=== PATIENT | female | born 1935 | race Caucasian/White ===

== ENCOUNTER 2017-03-01 14:02 | Emergency (ER) | payer MEDICARE, BC ==
[2017-03-01 14:18] LABS: URINE APPEARANCE CLOUDY; URINE BLOOD TRACE-I (NEGATIVE); URINE COLOR ORANGE; URINE KETONE NEGATIVE (NEGATIVE)
[2017-03-01] MEDS ORDERED: ONDANSETRON 4 MG ODT TABLET SL ONE (14:19)
--- NOTE | 2017-03-01 14:21 | Emergency Department Record ---
History of Present Illness - General Chief complaint: Female Urogenital Problem Stated complaint: POSS UTI Time Seen by Provider: 03/01/17 14:17 Source: Patient, Family - History of Present Illness Initial comments: Patient's daughter states that her mom has been having dysuria for nearly a week. She started on Azo and drinking cranberry juice, but is not better. Today she is feeling worse with suprapubic discomfort and nausea without vomiting. No fevers, chills or back pains. She states [employer] usually works for her UTI's in the past. MD Complaint: Dysuria - Related Data Home Medications Medication Instructions Recorded Confirmed Last Taken Benazepril HCl [Lotensin] 40 mg PO DAILY 03/01/17 03/01/17 1 Day Ago ~02/28/17 Clopidogrel Bisulfate [Clopidogrel] 75 mg PO DAILY 03/01/17 03/01/17 1 Day Ago ~02/28/17 Hydrochlorothiazide [Hctz 12.5MG] 12.5 mg PO DAILY 03/01/17 03/01/17 1 Day Ago ~02/28/17 Lovastatin 40 mg PO DAILY 03/01/17 03/01/17 1 Day Ago ~02/28/17 Metoprolol Tartrate [Lopressor] 25 mg PO Q12H 03/01/17 03/01/17 1 Day Ago ~02/28/17 Previous Rx's Medication Instructions Recorded Nitrofurantoin Monohyd/M-Cryst 100 mg PO BID #20 capsule 03/01/17 [Macrobid 100 mg Capsule] Allergies Allergy/AdvReac Type Severity Reaction Status Date / Time Penicillins Allergy HIVES Verified 03/01/17 14:18 Review of Systems Reviewed: No additional complaints except as noted below Constitutional: Reports: As per HPI. Denies: Chills, Fever, Malaise, Night sweats, Weakness, Weight change Eyes: Reports: As per HPI. Denies: Eye discharge, Eye pain, Photophobia, Vision change ENT: Reports: As per HPI. Denies: Congestion, Dental pain, Ear pain, Epistaxis , Hearing loss, Throat pain Respiratory: Reports: As per HPI. Denies: Cough, Dyspnea, Hemoptysis, Stridor, Wheezes Cardiovascular: Reports: As per HPI. Denies: Arrhythmia, Chest pain, Dyspnea on exertion, Edema, Murmurs, Orthopnea, Palpitations, Paroxysmal nocturnal dyspnea, Rheumatic Fever, Syncope Endocrine: Reports: As per HPI. Denies: Fatigue, Heat or cold intolerance, Polydipsia, Polyuria Gastrointestinal: Reports: As per HPI. Denies: Abdominal pain, Constipation, Diarrhea, Hematemesis, Hematochezia, Melena, Nausea, Vomiting Genitourinary: Reports: As per HPI. Denies: Abnormal menses, Discharge, Dyspareunia, Dysuria, Frequency, Hematuria, Incontinence, Retention, Urgency Musculoskeletal: Reports: As per HPI. Denies: Arthralgia, Back pain, Gout, Joint swelling, Myalgia, Neck pain Skin: Reports: As per HPI. Denies: Bruising, Change in color, Change in hair/ nails, Lesions, Pruritus, Rash Neurological: Reports: As per HPI. Denies: Abnormal gait, Confusion, Headache, Numbness, Paresthesias, Seizure, Tingling, Tremors, Vertigo, Weakness Psychiatric: Reports: As per HPI. Denies: Anxiety, Auditory hallucinations, Depression, Homicidal thoughts, Suicidal thoughts, Visual hallucinations Hematological/Lymphatic: Reports: As per HPI. Denies: Anemia, Blood Clots, Easy bleeding, Easy bruising, Swollen glands Physical Exam - General General Appearance: Alert, Oriented x3, Cooperative, No acute distress - Head Head exam: Normal inspection - Eye Eye exam: Normal appearance, PERRL Pupils: Normal accommodation - ENT ENT exam: Normal exam, Mucous membranes moist, Normal external ear exam, Normal orophraynx, TM's normal bilaterally Ear exam: Normal external inspection. negative: External canal tenderness Nasal Exam: Normal inspection. negative: Discharge, Sinus tenderness Mouth exam: Normal external inspection, Tongue normal Teeth exam: Normal inspection. negative: Dental caries Throat exam: Normal inspection. negative: Tonsillar erythema, Tonsillar exudate - Neck Neck exam: Normal inspection, Full ROM. negative: Tenderness - Respiratory Respiratory exam: Normal lung sounds bilaterally. negative: Respiratory distress - Cardiovascular Cardiovascular Exam: Regular rate, Normal rhythm, Normal heart sounds - GI/Abdominal GI/Abdominal exam: Soft, Normal bowel sounds, Other (mildly uncomfortable at suprapubic area on palpation). negative: Tenderness - Rectal Rectal exam: Deferred - exam: Deferred - Extremities Extremities exam: Normal inspection, Full ROM, Normal capillary refill. negative: Calf tenderness, Pedal edema, Tenderness - Back Back exam: Reports: Normal inspection, Full ROM. Denies: CVA tenderness (R), CVA tenderness (L), Muscle spasm, Rash noted, Tenderness - Neurological Neurological exam: Alert, Normal gait, Oriented X3, Reflexes normal - Psychiatric Psychiatric exam: Normal affect, Normal mood - Skin Skin exam: Dry, Intact, Normal color, Warm Medical Decision Making - Management Options MDM Management: No Additional Work-up Planned - Data Complexity MDM Data: Labs Ordered and/or Reviewed (UA:3-6 squamous, 3+ bacteria) Disposition Disposition: Discharge Clinical Impression: UTI (urinary tract infection) Qualifiers: Urinary tract infection type: acute cystitis Hematuria presence: without hematuria Qualified Code(s): N30.00 - Acute cystitis without hematuria Disposition: Home, Self-Care Condition: (1) Good Instructions: Urinary Tract Infection in Women (ED) Additional Instructions: Take antibiotics until gone as directed. Follow up with PCP for recheck 10 days. Tylenol or ibuprofen as directed as needed for pain, fevers. Prescriptions: Nitrofurantoin Monohyd/M-Cryst [Macrobid 100 mg Capsule] 100 mg PO BID #20 capsule Forms: Patient Portal Access
[2017-03-01 14:28] LABS: URINE AMORPHOUS SEDIMENT 1+; URINE BACTERIA 3+; URINE MUCUS LIGHT; URINE RBC 0 - 2 (NONE SEEN); URINE TRIPLE PHOSPHATE CRYSTAL 1+ /hpf; URINE WBC 21 - 35 (0-2/hpf)
== END 2017-03-01 15:03 | disposition home or self-care (01) ==
LOC: ER 14:02
DX: N30.00 Acute cystitis without hematuria (principal)
CPT/HCPCS: 81001; 99282

== ENCOUNTER 2017-09-11 17:19 | Emergency (ER) | payer MEDICARE, BC ==
--- NOTE | 2017-09-11 18:38 | Emergency Department Record ---
History of Present Illness - General Chief Complaint: Syncope Stated Complaint: NEAR SYNCOPY Time Seen by Provider: 09/11/17 18:32 Source: Patient Mode of Arrival: Wheelchair Limitations: No limitations Travel/Exposure to [facility] [place] Within 21 Days of Symptoms: No - History of Present Illness Initial Comments: 82 yo female presents to ED for evaluation of pre-syncope symptoms, reports that she feels as though she is "going to pass out" for the past several weeks intermittently. Patient denies dizziness or vertigo symptoms, denies chest pain or difficulty breathing, and denies recent illness. Patient reports that her PCP recently lowered her blood pressure medication as well due to her symptoms, but due to elevated BP, increased her medication back to her normal full dose yesterday. Patient denies focal weakness on examination. Patient denies any precipitating or improving factors. MD Complaint: Almost passed out Onset/Timin -: Week(s) Prodromal Symptoms: Other Injuries Sustained Associated with Event: None Current Symptoms: None Treatments Prior to Arrival: None - [place] Coma Scale Eye Response: (4) Open spontaneously Motor Response: (6) Obeys commands Verbal Response: (5) Oriented [place] Total: 15 - Symptoms of Stroke Symptoms of stroke: Dizziness - Related Data Previous Rx's Medication Instructions Recorded Nitrofurantoin [place] [Macrobid] 100 mg PO BID #13 capsule 09/11/17 Allergies Allergy/AdvReac Type Severity Reaction Status Date / Time Penicillins Allergy HIVES Verified 09/11/17 18:19 Travel Screening - Travel/Exposure Within Last 30 Days Have you traveled within the last 30 days?: No Review of Systems Constitutional: Denies: Chills, Fever, Malaise, Night sweats Eyes: Denies: Eye discharge, Eye pain ENT: Denies: Congestion, Ear pain, Epistaxis Respiratory: Denies: Cough, Dyspnea Cardiovascular: Denies: Chest pain, Dyspnea on exertion Endocrine: Denies: Fatigue, Heat or cold intolerance Gastrointestinal: Denies: Abdominal pain, Nausea, Vomiting Genitourinary: Denies: Incontinence, Retention Musculoskeletal: Denies: Arthralgia, Back pain Skin: Denies: Bruising, Change in color Neurological: Denies: Abnormal gait, Confusion, Headache, Numbness, Tingling, Tremors Psychiatric: Denies: Anxiety Hematological/Lymphatic: Denies: Anemia, Blood Clots Past Medical History - SOCIAL HISTORY Smoking Status: Never smoker Alcohol Use: None Drug Use: None - RESPIRATORY Hx Respiratory Disorders: No - CARDIOVASCULAR Hx Cardio Disorders: Yes Hx Hypertension: Yes Comment:: murmur - NEURO Hx Neuro Disorders: No - GI Hx GI Disorders: No - Hx Genitourinary Disorders: Yes Hx UTI: Yes - ENDOCRINE Hx Endocrine Disorders: No Hx Diabetes: No Hx Thyroid Disease: No - MUSCULOSKELETAL Hx Musculoskeletal Disorders: No - PSYCH Hx Psych Problems: No - HEMATOLOGY/ONCOLOGY Hx Hematology/Oncology Disorders: No Family Medical History Any Significant Family History?: No Physical Exam - General General Appearance: Alert, Oriented x3, Cooperative, No acute distress Limitations: No limitations - Head Head exam: Atraumatic, Normocephalic, Normal inspection Head exam detail: negative: Abrasion, Contusion, Conroy's sign, General tenderness, Hematoma, Laceration - Eye Eye exam: Normal appearance. negative: Conjunctival injection, Periorbital swelling, Periorbital tenderness, Scleral icterus - ENT Ear exam: negative: Auricular hematoma, Auricular trauma Nasal Exam: negative: Active bleeding, Discharge, Dried blood, Foreign body Mouth exam: negative: Drooling, Laceration, Muffled voice, Tongue elevation - Neck Neck exam: Normal inspection. negative: Meningismus, Tenderness - Respiratory Respiratory exam: Normal lung sounds bilaterally. negative: Respiratory distress, Rhonchi, Stridor, Wheezes - Cardiovascular Cardiovascular Exam: Regular rate, Normal rhythm, Normal heart sounds - GI/Abdominal GI/Abdominal exam: Soft. negative: Distended, Rebound, Rigid, Tenderness - Rectal Rectal exam: Deferred - exam: Deferred - Extremities Extremities exam: Normal inspection. negative: Calf tenderness, Pedal edema, Tenderness - Back Back exam: Denies: CVA tenderness (R), CVA tenderness (L) - Neurological Neurological exam: Alert, Normal gait, Oriented X3 - Psychiatric Psychiatric exam: Normal affect, Normal mood - Skin Skin exam: Normal color. negative: Abrasion Type of lesion: negative: abrasion Course Vital Signs 09/11/17 18:13 Temperature 98.5 F Pulse Rate 71 Respiratory 16 Rate Blood Pressure 203/95 Pulse Ox 97 - Reevaluation(s) Reevaluation #1: 09/11/17 18:37 EKG: NSR 70 LAD, RBBB T wave inversion III only. Reevaluation #2: 09/11/17 19:19 Labs reviewed and are grossly unremarkable for an acute process. UA pending. Reevaluation #3: 09/11/17 19:28 CXR: Prosthetic heart valve, nothing acute. Patient ambulated to the restroom with steady gait for UA sample. Medical Decision Making - Lab Data Result diagrams: 09/11/17 18:38 09/11/17 18:38 Disposition Disposition: Discharge Clinical Impression: Pre-syncope UTI (urinary tract infection) Qualifiers: Urinary tract infection type: acute cystitis Hematuria presence: without hematuria Qualified Code(s): N30.00 - Acute cystitis without hematuria Disposition: Home, Self-Care Condition: (2) Stable Instructions: Near Syncope (ED) Additional Instructions: Return to ED if your symptoms worsen or if you have any concerns. Macrobid as directed. Follow-up with Dr. Castle in 3-5 days as directed. Prescriptions: Nitrofurantoin [place] [Macrobid] 100 mg PO BID #13 capsule Forms: Patient Portal Access Time of Disposition: 19:38 Quality - Quality Measures Quality Measures: N/A - Blood Pressure Screening Does Patient Have Any of the Following: Active Dx of HTN Blood Pressure Classification: Hypertensive Reading Systolic Measurement: 203 Diastolic Measurement: 95 Screening for High Blood Pressure: Patient Exclusion, Hx of HTN [G9744]
[2017-09-11 18:53] LABS: BASO % 0.9 % (0-6); EOS % 4.2 % (0-6); GRAN % 55.3 % (47-80); HEMOGLOBIN 12.6 gm/dl (11.6-16.0); LYMPH % 32.6 % (16-45); MEAN CELL VOLUME 87.3 fl (81-97); MEAN CORPUSCULAR HEMOGLOBIN 27.5 pg (27-33); MEAN CORPUSCULAR HGB CONC 31.5 g/dl (32-36); MEAN PLATELET VOLUME 10.2 fl (7.4-10.4); PLATELET COUNT 202 K/uL (130-400); RED BLOOD COUNT 4.58 M/uL (3.80-5.40); RED CELL DISTRIBUTION WIDTH 14.9 % (11.5-14.5); WHITE BLOOD COUNT W/O DIFF 4.5 K/uL (4.2-12.2)
[2017-09-11 19:04] LABS: INR 0.96; PROTHROMBIN TIME (PATIENT) 10.4 SECONDS (9.5-12.1)
[2017-09-11 19:06] LABS: BLOOD UREA NITROGEN 26 mg/dL (8-23); CREATININE 0.9 mg/dL (0.5-0.9); EST GLOMERULAR FILTRATION RATE > 60 mL/min; TOTAL PROTEIN 7.4 g/dL (6.6-8.7)
[2017-09-11 19:08] LABS: GLUCOSE,RANDOM 105 mg/dL (74-109)
[2017-09-11 19:11] LABS: ALB/GLOB RATIO 1.5 (1.1-1.8); ALBUMIN 4.4 g/dL (4.0-5.0); ALKALINE PHOSPHATASE 81 U/L (35-104); ALT/SGPT 10 U/L (<33); AST/SGOT 15 U/L (10.0-35.0)
[2017-09-11 19:37] LABS: URINE APPEARANCE SL CLOUDY; URINE BILIRUBIN NEGATIVE (NEGATIVE); URINE BLOOD TRACE-I (NEGATIVE); URINE COLOR YELLOW; URINE GLUCOSE (UA) NEGATIVE (NEGATIVE); URINE KETONE NEGATIVE (NEGATIVE); URINE LEUKOCYTE ESTERASE MODERATE (NEGATIVE); URINE NITRITE POSITIVE (NEGATIVE); URINE PROTEIN NEGATIVE (NEGATIVE); URINE UROBILINOGEN 0.2 E.U./dL (0.20 - 1.00)
[2017-09-11] MEDS ORDERED: NITROFURANTOIN MONO 100 MG CAPSULE PO ONE (19:40)
[2017-09-11 19:45] LABS: URINE BACTERIA 3+; URINE RBC 0 - 2 (NONE SEEN); URINE WBC 21 - 35 (0-2/hpf)
--- NOTE | 2017-09-12 20:30 | RADIOLOGY REPORT ---
EXAM: CHEST 2 VIEWS HISTORY: EPISODE OF DIZZINESS, NEAR SYNCOPE. COMPARISON: None. TECHNIQUE: Two-view chest. FINDINGS: The lungs are clear. Prosthetic heart valve. Cardiac silhouette, diaphragm, and osseous structures are unremarkable. IMPRESSION: NO ACUTE INTRATHORACIC PROCESS. JOB NUMBER: [id number] MTDD
== END 2017-09-11 19:56 | disposition home or self-care (01) ==
LOC: ER 17:19
DX: R55 Syncope and collapse (principal); N30.00 Acute cystitis without hematuria; I10 Essential (primary) hypertension; Z95.2 Presence of prosthetic heart valve
CPT/HCPCS: 71020; 80053; 81001; 85025; 85610; 93005; 93010; 99284

== ENCOUNTER 2017-09-20 08:55 | Emergency (ER) | payer MEDICARE, BC ==
--- NOTE | 2017-09-20 09:27 | Emergency Department Record ---
History of Present Illness - General Chief complaint: Weakness Stated complaint: UTI, WEAK Time Seen by Provider: 09/20/17 09:04 Source: Patient Mode of Arrival: Ambulatory Limitations: No limitations - History of Present Illness Initial comments: 82 yo female presents to ED for continued symptoms described as "I feel as thought I am going to pass out". Patient denies actual syncope, denies chest, SHAKEEL, abdominal pain, or urinary symptoms however was treated for UTI 09/11/17 when evaluated for her symptoms at that time. Patient denies fevers, chills, cough, or headache symptoms. Patient reports that her episodes last 10-15 seconds, and have occurred 1-3 times daily. Patient denies any precipitating factors. 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 MD Complaint: Generalized weakness Onset/Timin -: Minutes(s) Location: Generalized Severity: Mild Consistency: Intermittent Improves with: None Worsens with: None Context: History of similar Associated Symptoms: Denies other symptoms - [place] Coma Scale Eye Response: (4) Open spontaneously Motor Response: (6) Obeys commands Verbal Response: (5) Oriented [place] Total: 15 - Related Data Allergies Allergy/AdvReac Type Severity Reaction Status Date / Time Penicillins Allergy HIVES Verified 09/20/17 09:17 Travel Screening - Travel/Exposure Within Last 30 Days Have you traveled within the last 30 days?: No - Travel/Exposure Within Last Year Have you traveled outside the [place] in the last year?: No - Additonal Travel Details Have you been exposed to anyone with a communicable illness?: No - Travel Symptoms Symptom Screening: None Review of Systems Constitutional: Reports: Weakness. Denies: Chills, Fever, Malaise, Night sweats Eyes: Denies: Eye discharge, Eye pain ENT: Denies: Congestion, Ear pain, Epistaxis Respiratory: Denies: Cough, Dyspnea Cardiovascular: Denies: Chest pain, Dyspnea on exertion Endocrine: Denies: Fatigue, Heat or cold intolerance Gastrointestinal: Denies: Abdominal pain, Nausea, Vomiting Musculoskeletal: Denies: Arthralgia, Back pain Skin: Denies: Bruising, Change in color Neurological: Denies: Abnormal gait, Confusion, Headache, Seizure Psychiatric: Denies: Anxiety Hematological/Lymphatic: Denies: Anemia, Blood Clots Past Medical History - SOCIAL HISTORY Smoking Status: Never smoker Alcohol Use: None Drug Use: None - RESPIRATORY Hx Respiratory Disorders: No - CARDIOVASCULAR Hx Cardio Disorders: Yes Hx Hypertension: Yes Comment:: murmur - NEURO Hx Neuro Disorders: No - GI Hx GI Disorders: No - Hx Genitourinary Disorders: Yes Hx UTI: Yes - ENDOCRINE Hx Endocrine Disorders: No Hx Diabetes: No Hx Thyroid Disease: No - MUSCULOSKELETAL Hx Musculoskeletal Disorders: No - PSYCH Hx Psych Problems: No - HEMATOLOGY/ONCOLOGY Hx Hematology/Oncology Disorders: No Family Medical History Any Significant Family History?: No Physical Exam - General General Appearance: Alert, Oriented x3, Cooperative, No acute distress Limitations: No limitations - Head Head exam: Atraumatic, Normocephalic, Normal inspection Head exam detail: negative: Abrasion, Contusion, Conroy's sign, General tenderness, Hematoma, Laceration - Eye Eye exam: Normal appearance. negative: Conjunctival injection, Periorbital swelling, Periorbital tenderness, Scleral icterus - ENT Ear exam: negative: Auricular hematoma, Auricular trauma Nasal Exam: negative: Active bleeding, Discharge, Dried blood, Foreign body Mouth exam: negative: Drooling, Laceration, Muffled voice, Tongue elevation - Neck Neck exam: Normal inspection. negative: Meningismus, Tenderness - Respiratory Respiratory exam: Normal lung sounds bilaterally. negative: Rales, Respiratory distress, Rhonchi, Stridor - Cardiovascular Cardiovascular Exam: Normal rhythm, Normal heart sounds, Bradycardia - GI/Abdominal GI/Abdominal exam: Soft. negative: Rebound, Rigid, Tenderness - Rectal Rectal exam: Deferred - exam: Deferred - Extremities Extremities exam: Normal inspection. negative: Pedal edema, Tenderness - Back Back exam: Denies: CVA tenderness (R), CVA tenderness (L) - Neurological Neurological exam: Alert, Normal gait, Oriented X3 - Psychiatric Psychiatric exam: Normal affect, Normal mood - Skin Skin exam: Normal color. negative: Abrasion Type of lesion: negative: abrasion Course Vital Signs 09/20/17 09:00 Temperature 97.8 F Pulse Rate 52 L Respiratory 16 Rate Blood Pressure 189/81 Pulse Ox 99 - Reevaluation(s) Reevaluation #1: 09/20/17 09:22 EKG: Sinus bradycardia 54 LAD, IVCD, RBBB No acute ST-T wave changes are present Unchanged 09/11/17 Reevaluation #2: 09/20/17 10:08 Labs reviewed and are grossly unremarkable for an acute process, UA pending. Patient intermittently dips into the upper 40's while on monitor. Will initiate transfer to [facility] for further evaluation. Reevaluation #3: 09/20/17 10:12 Case was discussed with Dr. Lantigua, will accept transfer for further evaluation. Medical Decision Making - Lab Data Result diagrams: 09/20/17 09:31 09/20/17 09:31 Disposition Disposition: Transfer Clinical Impression: Pre-syncope, Bradycardia Disposition: Acute Care Hospital Transfer Transfer To: [facility] Reason For Transfer: Cardiac evaluation Accepting Physician: Rhina Time Discussed w/Accepting Physician: 10:12 Condition: (2) Stable Forms: Patient Portal Access Time of Disposition: 10:12 Quality - Quality Measures Quality Measures: N/A - Blood Pressure Screening Does Patient Have Any of the Following: Active Dx of HTN Blood Pressure Classification: Pre-Hypertensive BP Reading Systolic Measurement: 189 Diastolic Measurement: 81 Screening for High Blood Pressure: Patient Exclusion, Hx of HTN [G9744]
[2017-09-20 09:41] LABS: BASO % 0.8 % (0-6); EOS % 3.9 % (0-6); GRAN % 60.8 % (47-80); HEMATOCRIT 40.9 % (35.0-47.0); HEMOGLOBIN 13.1 gm/dl (11.6-16.0); LYMPH % 26.7 % (16-45); MEAN CELL VOLUME 86.3 fl (81-97); MEAN CORPUSCULAR HEMOGLOBIN 27.6 pg (27-33); MEAN PLATELET VOLUME 10.2 fl (7.4-10.4); MONO % 7.8 % (0-9); PLATELET COUNT 212 K/uL (130-400); RED BLOOD COUNT 4.74 M/uL (3.80-5.40); RED CELL DISTRIBUTION WIDTH 14.9 % (11.5-14.5); WHITE BLOOD COUNT W/O DIFF 5.2 K/uL (4.2-12.2)
[2017-09-20 09:52] LABS: INR 0.98; PROTHROMBIN TIME (PATIENT) 10.6 SECONDS (9.5-12.1)
[2017-09-20 09:54] LABS: BLOOD UREA NITROGEN 30 mg/dL (8-23); EST GLOMERULAR FILTRATION RATE 56 mL/min
[2017-09-20 09:55] LABS: TOTAL PROTEIN 7.7 g/dL (6.6-8.7)
[2017-09-20 09:57] LABS: GLUCOSE,RANDOM 102 mg/dL (74-109)
[2017-09-20 09:59] LABS: ALB/GLOB RATIO 1.7 (1.1-1.8); ALBUMIN 4.8 g/dL (4.0-5.0); ALKALINE PHOSPHATASE 81 U/L (35-104); ALT/SGPT 10 U/L (<33); AST/SGOT 16 U/L (10.0-35.0)
[2017-09-20 11:02] LABS: URINE APPEARANCE CLEAR; URINE BILIRUBIN NEGATIVE (NEGATIVE); URINE BLOOD NEGATIVE (NEGATIVE); URINE COLOR YELLOW; URINE GLUCOSE (UA) NEGATIVE (NEGATIVE); URINE KETONE NEGATIVE (NEGATIVE); URINE LEUKOCYTE ESTERASE NEGATIVE (NEGATIVE); URINE NITRITE NEGATIVE (NEGATIVE); URINE PROTEIN NEGATIVE (NEGATIVE); URINE UROBILINOGEN 0.2 E.U./dL (0.20 - 1.00)
== END 2017-09-20 11:26 | disposition short-term general hospital (02) ==
LOC: ER 08:55
DX: R55 Syncope and collapse (principal); R00.1 Bradycardia, unspecified; R53.1 Weakness; I10 Essential (primary) hypertension; Z95.2 Presence of prosthetic heart valve; Z79.01 Long term (current) use of anticoagulants
CPT/HCPCS: 80053; 81003; 84484; 85025; 85610; 93005; 93010; 99285

== ENCOUNTER 2017-10-14 20:43 | Observation (INO) | payer MEDICARE, BC ==
[2017-10-14 21:08] LABS: BASO % 0.5 % (0-6); EOS % 2.6 % (0-6); GRAN % 56.1 % (47-80); HEMATOCRIT 40.1 % (35.0-47.0); HEMOGLOBIN 12.5 gm/dl (11.6-16.0); LYMPH % 32.1 % (16-45); MEAN CELL VOLUME 86.4 fl (81-97); MEAN CORPUSCULAR HEMOGLOBIN 26.9 pg (27-33); MEAN CORPUSCULAR HGB CONC 31.2 g/dl (32-36); MEAN PLATELET VOLUME 9.9 fl (7.4-10.4); MONO % 8.7 % (0-9); PLATELET COUNT 202 K/uL (130-400); RED BLOOD COUNT 4.64 M/uL (3.80-5.40); RED CELL DISTRIBUTION WIDTH 15.1 % (11.5-14.5); WHITE BLOOD COUNT W/O DIFF 6.1 K/uL (4.2-12.2)
[2017-10-14] MEDS ORDERED: ASPIRIN 81 MG CHEWABLE TABLET PO ONE (21:15)
[2017-10-14 21:25] LABS: ALBUMIN 4.6 g/dL (4.0-5.0); ALKALINE PHOSPHATASE 78 U/L (35-104); ALT/SGPT 10 U/L (<33); AST/SGOT 15 U/L (10.0-35.0); BLOOD UREA NITROGEN 27 mg/dL (8-23); CREATININE 0.9 mg/dL (0.5-0.9); EST GLOMERULAR FILTRATION RATE > 60 mL/min; GLUCOSE,RANDOM 108 mg/dL (74-109)
[2017-10-14 21:26] LABS: ALB/GLOB RATIO 1.6 (1.1-1.8); TOTAL PROTEIN 7.5 g/dL (6.6-8.7)
[2017-10-14 21:28] LABS: CKMB 2.7 ng/mL (<3.77)
[2017-10-14] MEDS: NITROGLYCERIN 0.4MG SL TABLET #25 BTL SL ONE ×3 (21:33→21:54)
--- NOTE | 2017-10-14 23:06 | Emergency Department Record ---
History of Present Illness - General Chief Complaint: Chest Pain Stated Complaint: HIGH BLOOD PRESSURE,CHEST PAIN Time Seen by Provider: 10/14/17 21:01 Source: Patient, Family Mode of Arrival: Ambulatory Limitations: No limitations - History of Present Illness Initial Comments: pt had a spell today and a few days ago where she feels out of it, has discomfort in her chest and feels like she is going to pass out. she also was sweaty MD Complaint: Chest pain Onset/Timin -: Hour(s) Onset: During exertion Pain Location: Left chest Quality: Aching, Dull Consistency: Constant Improves With: Nothing Worsens With: Nothing Context: Recent surgery Anginal Symptoms: Diaphoresis, Nausea Treatments Prior to Arrival: None - Related Data On Oral Contraceptives: No Home Medications Medication Instructions Recorded Confirmed Last Taken Ezetimibe [Zetia] 10 mg PO DAILY 10/14/17 10/14/17 10/13/17 Magnesium 200 mg PO DAILY 10/14/17 10/14/17 Unknown Allergies Allergy/AdvReac Type Severity Reaction Status Date / Time Penicillins Allergy HIVES Verified 09/20/17 09:17 Travel Screening - Travel/Exposure Within Last 30 Days Have you traveled within the last 30 days?: No - Travel Symptoms Symptom Screening: None Review of Systems Reviewed: No additional complaints except as noted below Constitutional: Reports: As per HPI. Denies: Chills, Fever, Malaise, Night sweats, Weakness, Weight change Eyes: Reports: As per HPI. Denies: Eye discharge, Eye pain, Photophobia, Vision change ENT: Reports: As per HPI. Denies: Congestion, Dental pain, Ear pain, Epistaxis , Hearing loss, Throat pain Respiratory: Reports: As per HPI. Denies: Cough, Dyspnea, Hemoptysis, Stridor, Wheezes Cardiovascular: Reports: As per HPI, Chest pain. Denies: Arrhythmia, Dyspnea on exertion, Edema, Murmurs, Orthopnea, Palpitations, Paroxysmal nocturnal dyspnea, Rheumatic Fever, Syncope Endocrine: Reports: As per HPI. Denies: Fatigue, Heat or cold intolerance, Polydipsia, Polyuria Gastrointestinal: Reports: As per HPI. Denies: Abdominal pain, Constipation, Diarrhea, Hematemesis, Hematochezia, Melena, Nausea, Vomiting Genitourinary: Reports: As per HPI. Denies: Abnormal menses, Discharge, Dyspareunia, Dysuria, Frequency, Hematuria, Incontinence, Retention, Urgency Musculoskeletal: Reports: As per HPI. Denies: Arthralgia, Back pain, Gout, Joint swelling, Myalgia, Neck pain Skin: Reports: As per HPI. Denies: Bruising, Change in color, Change in hair/ nails, Lesions, Pruritus, Rash Neurological: Reports: As per HPI. Denies: Abnormal gait, Confusion, Headache, Numbness, Paresthesias, Seizure, Tingling, Tremors, Vertigo, Weakness Psychiatric: Reports: As per HPI. Denies: Anxiety, Auditory hallucinations, Depression, Homicidal thoughts, Suicidal thoughts, Visual hallucinations Hematological/Lymphatic: Reports: As per HPI. Denies: Anemia, Blood Clots, Easy bleeding, Easy bruising, Swollen glands Past Medical History - SOCIAL HISTORY Smoking Status: Never smoker Alcohol Use: None Drug Use: None - RESPIRATORY Hx Respiratory Disorders: No - CARDIOVASCULAR Hx Cardio Disorders: Yes Hx Hypertension: Yes Hx Pacemaker/Defib: Yes Comment:: murmur - NEURO Hx Neuro Disorders: No - GI Hx GI Disorders: No - Hx Genitourinary Disorders: Yes Hx UTI: Yes - ENDOCRINE Hx Endocrine Disorders: No Hx Diabetes: No Hx Thyroid Disease: No - MUSCULOSKELETAL Hx Musculoskeletal Disorders: No - PSYCH Hx Psych Problems: No - HEMATOLOGY/ONCOLOGY Hx Hematology/Oncology Disorders: No Family Medical History Any Significant Family History?: No Family Hx Comment (NOT TO BE USED IN PLACE OF ITEMS BELOW): DENIES Course Vital Signs 10/14/17 10/14/17 10/14/17 20:49 21:30 21:40 Pulse Rate 69 Pulse Rate [ 66 69 Clinical Dietitian ] Respiratory 20 16 18 Rate Blood Pressure 183/93 Blood Pressure 179/101 152/81 [Right Arm] Pulse Ox 96 98 10/14/17 10/14/17 10/14/17 21:45 21:50 21:56 Pulse Rate Pulse Rate [ 62 70 Clinical Dietitian ] Respiratory 16 16 Rate Blood Pressure Blood Pressure 143/75 155/80 132/69 [Right Arm] Pulse Ox 97 95 10/14/17 22:23 Pulse Rate Pulse Rate [ 65 Clinical Dietitian ] Respiratory 20 Rate Blood Pressure Blood Pressure 133/64 [Right Arm] Pulse Ox 98 - Reevaluation(s) Reevaluation #1: 10/15/17 00:36 chest pain resolved w 3 ntg. pt states she had a heart cath but we were unable to locate it at [facility] or [facility] Medical Decision Making - Lab Data Result diagrams: 10/14/17 20:50 10/14/17 20:50 Lab Results 10/14/17 10/14/17 10/14/17 Range/Units 20:50 20:50 20:50 WBC 6.1 (4.2-12.2) K/uL RBC 4.64 (3.80-5.40) M/uL Hgb 12.5 (11.6-16.0) gm/dl Hct 40.1 (35.0-47.0) % MCV 86.4 (81-97) fl MCH 26.9 L (27-33) pg MCHC 31.2 L (32-36) g/dl RDW 15.1 H (11.5-14.5) % Plt Count 202 (130-400) K/uL MPV 9.9 (7.4-10.4) fl Gran % 56.1 (47-80) % Lymphocytes % 32.1 (16-45) % Monocytes % 8.7 (0-9) % Eosinophils % 2.6 (0-6) % Basophils % 0.5 (0-6) % D-Dimer 1.41 H (0-0.59) mg/L FEU Sodium 140 (136-145) mmol/L Potassium 3.9 (3.4-4.5) mmol/L Chloride 99 (98-107) mmol/L Carbon Dioxide 28.0 (22-29) mmol/L Anion Gap 13.0 (7-16) BUN 27 H (8-23) mg/dL Creatinine 0.9 (0.5-0.9) mg/dL Estimated GFR > 60 mL/min Random Glucose 108 (74-109) mg/dL Calcium 9.6 (8.8-10.2) mg/dL Total Bilirubin 0.20 (0.2-1.0) mg/dL AST 15 (10.0-35.0) U/L ALT 10 (<33) U/L Alkaline Phosphatase 78 (35-104) U/L CK-MB (CK-2) 2.7 (<3.77) ng/mL Troponin T < 0.010 (0-0.010) ng/mL NT-Pro-B Natriuret Pep (<450) pg/mL Total Protein 7.5 (6.6-8.7) g/dL Albumin 4.6 (4.0-5.0) g/dL Globulin 2.9 (1.4-4.8) gm/dL Albumin/Globulin Ratio 1.6 (1.1-1.8) 10/14/17 Range/Units 20:50 WBC (4.2-12.2) K/uL RBC (3.80-5.40) M/uL Hgb (11.6-16.0) gm/dl Hct (35.0-47.0) % MCV (81-97) fl MCH (27-33) pg MCHC (32-36) g/dl RDW (11.5-14.5) % Plt Count (130-400) K/uL MPV (7.4-10.4) fl Gran % (47-80) % Lymphocytes % (16-45) % Monocytes % (0-9) % Eosinophils % (0-6) % Basophils % (0-6) % D-Dimer (0-0.59) mg/L FEU Sodium (136-145) mmol/L Potassium (3.4-4.5) mmol/L Chloride (98-107) mmol/L Carbon Dioxide (22-29) mmol/L Anion Gap (7-16) BUN (8-23) mg/dL Creatinine (0.5-0.9) mg/dL Estimated GFR mL/min Random Glucose (74-109) mg/dL Calcium (8.8-10.2) mg/dL Total Bilirubin (0.2-1.0) mg/dL AST (10.0-35.0) U/L ALT (<33) U/L Alkaline Phosphatase (35-104) U/L CK-MB (CK-2) (<3.77) ng/mL Troponin T (0-0.010) ng/mL NT-Pro-B Natriuret Pep 284.90 (<450) pg/mL Total Protein (6.6-8.7) g/dL Albumin (4.0-5.0) g/dL Globulin (1.4-4.8) gm/dL Albumin/Globulin Ratio (1.1-1.8) Disposition Disposition: Admit Clinical Impression: Chest pain Qualifiers: Chest pain type: unspecified Qualified Code(s): R07.9 - Chest pain, unspecified Disposition: Still a Patient at [facility] Decision to Admit: Admit from ER Decision to Admit Date: 10/15/17 Decision to Admit Time: 00:40 Forms: Patient Portal Access Quality - Quality Measures Quality Measures: N/A - Blood Pressure Screening Does Patient Have Any of the Following: Active Dx of HTN Blood Pressure Classification: Hypertensive Reading Systolic Measurement: 183 Diastolic Measurement: 93 Screening for High Blood Pressure: Patient Exclusion, Hx of HTN [G9744]
[2017-10-15] MEDS ORDERED: METOPROLOL TART 25 MG TABLET PO SCH ×2 (01:06→09:00)
[2017-10-15] MEDS ORDERED: NITROGLYCERIN 0.4MG SL TABLET #25 BTL SL PRN (01:06)
[2017-10-15] MEDS: ACETAMINOPHEN 500 MG TABLET PO PRN ×2 (01:37→06:35)
[2017-10-15 07:14] LABS: CKMB 1.7 ng/mL (<3.77)
--- NOTE | 2017-10-15 08:09 | History & Physical ---
History of Present Illness - Date of Service Date of Service for History & Physical: 10/15/17 - History of Present Illness Admitting Diagnosis: chest pain Travel Screening - Travel/Exposure Within Last 30 Days Have you traveled within the last 30 days?: No - Travel/Exposure Within Last Year Have you traveled outside the [place] in the last year?: No - Additonal Travel Details Have you been exposed to anyone with a communicable illness?: No - Travel Symptoms Symptom Screening: None Review of Systems Constitutional: Reports: As per HPI. Denies: Chills, Fever, Malaise, Night sweats, Weakness, Weight change Eyes: Reports: As per HPI. Denies: Eye discharge, Eye pain, Photophobia, Vision change ENT: Reports: As per HPI. Denies: Congestion, Dental pain, Ear pain, Epistaxis , Hearing loss, Throat pain Respiratory: Reports: As per HPI. Denies: Cough, Dyspnea, Hemoptysis, Stridor, Wheezes Cardiovascular: Reports: As per HPI, Chest pain. Denies: Arrhythmia, Dyspnea on exertion, Edema, Murmurs, Orthopnea, Palpitations, Paroxysmal nocturnal dyspnea, Rheumatic Fever, Syncope Endocrine: Reports: As per HPI. Denies: Fatigue, Heat or cold intolerance, Polydipsia, Polyuria Gastrointestinal: Reports: As per HPI. Denies: Abdominal pain, Constipation, Diarrhea, Hematemesis, Hematochezia, Melena, Nausea, Vomiting Genitourinary: Reports: As per HPI. Denies: Abnormal menses, Discharge, Dyspareunia, Dysuria, Frequency, Hematuria, Incontinence, Retention, Urgency Musculoskeletal: Reports: As per HPI. Denies: Arthralgia, Back pain, Gout, Joint swelling, Myalgia, Neck pain Skin: Reports: As per HPI. Denies: Bruising, Change in color, Change in hair/ nails, Lesions, Pruritus, Rash Neurological: Reports: As per HPI. Denies: Abnormal gait, Confusion, Headache, Numbness, Paresthesias, Seizure, Tingling, Tremors, Vertigo, Weakness Psychiatric: Reports: As per HPI. Denies: Anxiety, Auditory hallucinations, Depression, Homicidal thoughts, Suicidal thoughts, Visual hallucinations Hematological/Lymphatic: Reports: As per HPI. Denies: Anemia, Blood Clots, Easy bleeding, Easy bruising, Swollen glands Past Medical History - SOCIAL HISTORY Smoking Status: Never smoker Alcohol Use: None Drug Use: None - RESPIRATORY Hx Respiratory Disorders: No - CARDIOVASCULAR Hx Cardio Disorders: Yes Hx Hypertension: Yes Hx Pacemaker/Defib: Yes Comment:: murmur - NEURO Hx Neuro Disorders: No - GI Hx GI Disorders: No - Hx Genitourinary Disorders: Yes Hx UTI: Yes - ENDOCRINE Hx Endocrine Disorders: No Hx Diabetes: No Hx Thyroid Disease: No - MUSCULOSKELETAL Hx Musculoskeletal Disorders: No - PSYCH Hx Psych Problems: No - HEMATOLOGY/ONCOLOGY Hx Hematology/Oncology Disorders: No Family Medical History Any Significant Family History?: No Family Hx Comment (NOT TO BE USED IN PLACE OF ITEMS BELOW): DENIES H&P Meds/Allergies - Allergies Allergies: Allergies Allergy/AdvReac Type Severity Reaction Status Date / Time Penicillins Allergy HIVES Verified 09/20/17 09:17 - Home Medications Home Medications Medication Instructions Recorded Confirmed Last Taken Ezetimibe [Zetia] 10 mg PO DAILY 10/14/17 10/14/17 10/13/17 Magnesium 200 mg PO DAILY 10/14/17 10/14/17 Unknown - Active Medications Active Medications: Current Medications Acetaminophen (Tylenol 500mg Tab) 1,000 mg PO Q6H PRN PRN Reason: PAIN/TEMP Last Admin: 10/15/17 06:35 Dose: 1,000 mg Aspirin (Ecotrin (Ec)) 325 mg PO DAILY [facility] Benazepril HCl (Lotensin) 40 mg PO DAILY [facility] Clopidogrel Bisulfate (Plavix) 75 mg PO DAILY [facility] Ezetimibe (Zetia) 10 mg PO DAILY [facility] Magnesium Oxide (Mag Ox) 200 mg PO DAILY [facility] Metoprolol Tartrate (Lopressor) 25 mg PO Q12H [facility] Nitroglycerin (Nitrostat 0.4mg) 0.4 mg SL Q5MIN PRN PRN Reason: CHEST PAIN Simvastatin (Zocor) 20 mg PO DAILY [facility] Physical Exam - Vital Signs Vital Signs: Vital Signs - Last 24 Hrs Temp Pulse Resp BP Pulse Ox 10/15/17 06:41 95 10/15/17 06:00 59 L 16 147/74 96 10/15/17 03:00 61 16 133/84 97 10/15/17 02:24 97.1 F L 103 H 18 152/98 98 10/15/17 01:00 97 F L 62 16 155/72 98 - General Limitations: No limitations Results - Labs Result Diagrams: 10/14/17 20:50 10/14/17 20:50 Labs Last 24 Hours: Laboratory Results - last 24 hr 10/15/17 10/15/17 06:00 06:15 CK-MB (CK-2) Cancelled 1.7 Troponin T < 0.010
[2017-10-15] MEDS ORDERED: AL HYDROX/MAG HYDROX 30ML UD PO ONE (08:32)
[2017-10-15] MEDS ORDERED: PANTOPRAZOLE SODIUM 40 MG TABLET PO SCH (09:00)
--- NOTE | 2017-10-15 09:11 | CT ANGIOGRAM REPORT ---
EXAM: CTA OF THE CHEST FOR PE WITH POST PROCESSING HISTORY: CHEST PAIN. TECHNIQUE: CTA of the chest was performed following intravenous administration of 90 ml of Omnipaque 350 as the IV contrast. Post processing on an independent workstation was performed with multiple 3D MIP series obtained. A preliminary report was provided by [facility]. Comparison: No prior chest CT. Comparison is made with the two view chest x- ray dated 09/11/17. FINDINGS: No definite PE identified. There is a prosthetic aortic valve. Some coronary artery calcification is present. No thoracic aortic aneurysm or dissection is seen. No pleural or pericardial effusion evident. No hilar or mediastinal adenopathy is seen. No pneumothorax evident. Minor dependent atelectasis in the posterior aspect of both lower lobes. There is some minor linear fibrosis or discoid atelectasis in the lingula as well. IMPRESSION: 1. NO DEFINITE PE IDENTIFIED. 2. PROSTHETIC AORTIC HEART VALVE. SOME MILD CORONARY ARTERY CALCIFICATION. 3. MINOR LINEAR FIBROSIS OR DISCOID ATELECTASIS LEFT BASE. JOB NUMBER: [id number] MTDD
[2017-10-15] MEDS ORDERED: LOVASTATIN 40 MG PO SCH (10:00)
[2017-10-15] MEDS ORDERED: ASPIRIN 325 MG TAB ENTERIC-COATED PO SCH (10:00)
[2017-10-15] MEDS ORDERED: CLOPIDOGREL 75MG TABLET PO SCH (10:00)
[2017-10-15] MEDS ORDERED: SIMVASTATIN 20 MG TABLET PO SCH (10:00)
[2017-10-15] MEDS ORDERED: MAGNESIUM OXIDE 400 MG TABLET PO SCH (10:00)
[2017-10-15] MEDS ORDERED: EZETIMIBE 10 MG TABLET PO SCH (10:00)
[2017-10-15] MEDS ORDERED: BENAZEPRIL 20 MG TABLET PO SCH (10:00)
--- NOTE | 2017-10-15 12:38 | Discharge Note ---
VTE H&P Assessment - Risk for VTE Risk for VTE: No Risk Level: Very Low Risk Assessment Date: 10/15/17 Risk Assessment Time: 12:38 VTE Orders Placed or Will Be Placed: No VTE Reason for No Prophylaxis: Not Indicated Discharge Medications - Discharge Medications Prescriptions: Omeprazole 20 mg PO DAILY #30 cap. Home Medications: Ambulatory Orders Benazepril HCl [Lotensin] 40 mg PO DAILY 03/01/17 [Last Taken 10/14/17] Clopidogrel Bisulfate [Clopidogrel] 75 mg PO DAILY 03/01/17 [Last Taken 10/14/17 ] Lovastatin 40 mg PO DAILY 03/01/17 [Last Taken 10/14/17] Metoprolol Tartrate [Lopressor] 25 mg PO Q12H 03/01/17 [Last Taken 10/14/17] Ezetimibe [Zetia] 10 mg PO DAILY 10/14/17 [Last Taken 10/13/17] Magnesium 200 mg PO DAILY 10/14/17 [Last Taken Unknown] Omeprazole 20 mg PO DAILY #30 cap. 10/15/17 [Last Taken Unknown] Discharge Note - Date Date of Discharge Note: 10/15/17 Disposition: Home, Self-Care Condition: (1) Good Additional Instructions: follow up with Dr. Castle on thursday use maalox one tablespoon after meals and bedtime Forms: Patient Portal Access
--- NOTE | 2017-10-15 13:01 | Discharge Note ---
VTE H&P Assessment - Risk for VTE Risk for VTE: No Risk Level: Very Low Risk Assessment Date: 10/15/17 Risk Assessment Time: 12:38 VTE Orders Placed or Will Be Placed: No VTE Reason for No Prophylaxis: Not Indicated Discharge Medications - Discharge Medications Prescriptions: Omeprazole 20 mg PO DAILY #30 cap. Pantoprazole Sodium [Protonix] 40 mg PO DAILY #30 tablet. Home Medications: Ambulatory Orders Benazepril HCl [Lotensin] 40 mg PO DAILY 03/01/17 [Last Taken 10/14/17] Clopidogrel Bisulfate [Clopidogrel] 75 mg PO DAILY 03/01/17 [Last Taken 10/14/17 ] Lovastatin 40 mg PO DAILY 03/01/17 [Last Taken 10/14/17] Metoprolol Tartrate [Lopressor] 25 mg PO Q12H 03/01/17 [Last Taken 10/14/17] Ezetimibe [Zetia] 10 mg PO DAILY 10/14/17 [Last Taken 10/13/17] Magnesium 200 mg PO DAILY 10/14/17 [Last Taken Unknown] Omeprazole 20 mg PO DAILY #30 cap. 10/15/17 [Last Taken Unknown] Pantoprazole Sodium [Protonix] 40 mg PO DAILY #30 tablet. 10/15/17 [Last Taken Unknown] Discharge Note - Date Date of Discharge Note: 10/15/17 Disposition: Home, Self-Care Condition: (1) Good Additional Instructions: follow up with Dr. Castle on thursday use maalox one tablespoon after meals and bedtime Prescriptions: Omeprazole 20 mg PO DAILY #30 cap. Referrals: Bishop Castle, D.O. [Primary Care Provider] - Forms: Patient Portal Access
--- NOTE | 2017-10-15 13:50 | History and Physical Report ---
DATE: 10/15/2017 CHIEF COMPLAINT: Chest pain lasting for a few seconds. She said it was a warm feeling, a hot feeling. She said she was a little sweaty. She has been concerned about her pacemaker that was placed on 09/22/2017. She came to the emergency department and was evaluated by Dr. Britton, admitted to the hospital for serial cardiac enzymes and serial EKGs. Pacemaker showed paced rhythm from the atrial lead. The patient also states her chest pain is in the rib cage area just around the area where the pacemaker has been placed and slightly below that area, which is healing up very nicely at this time. She had her pacemaker interrogated about a week ago which was very good and everything is working fine. She had an elevated D-dimer and a CTA was done in the emergency department which was negative for a PE. She has a prosthetic aortic heart valve which was placed because of aortic stenosis about 1 year ago. Her interventional radiology technologist is [facility]. Dr. Alvares is who she is going to be going to see. PAST MEDICAL HISTORY: Arrhythmia with a pacemaker placed 09/22/2017. She has a history of aortic stenosis with a prosthetic aortic heart valve. She has had some problems with urinary tract infection in the past. No diabetes or thyroid disease. PAST SURGICAL HISTORY: She had aortic valve replacement in September 2016, left knee total replacement, left ankle surgery, pacemaker placed 09/22/2017. MEDICATIONS: 1. Zetia 10 mg a day. 2. Metoprolol tartrate 25 mg b.i.d. 3. Magnesium 200 mg daily. 4. Lovastatin 40 mg daily. 5. Plavix 75 mg daily. 6. Lotensin 40 mg daily. ALLERGIES: PENICILLIN. FAMILY/PSYCHOSOCIAL HISTORY: Unremarkable. No smoking, never smoked. No alcohol or drug use. REVIEW OF SYSTEMS: HEENT: No upper respiratory infection symptoms, cough, cold, or congestion. Cardiovascular: See Chief Complaint. She does have arrhythmias and a pacemaker but it is working very well at this time. The chest pain is sharp in nature, reproducible on palpation. No edema in the legs. Respiratory: No cough, cold, or congestion. Gastrointestinal: No nausea, vomiting, diarrhea, black stools, or bloody stools. Genitourinary: No dysuria, hematuria, frequency, or burning on urination. Musculoskeletal: She denies any problems moving her arms or legs. Neurological: No CVA, paralysis, or paresthesias. Gynecological: No abnormal lumps in her breasts or abnormal vaginal bleeding. Endocrine: No diabetes or thyroid disease. Integument: No rash, ulcers, change in moles, or yellow skin. PHYSICAL EXAMINATION: VITALS: Height 5 feet 2 inches, weight 262 pounds. Temperature 98.0, pulse 64, blood pressure 150/85, respiratory rate 60, pulse ox 95% on room air. HEENT: Pupils are equal, round, and reactive to light and accommodation. Extraocular muscles are intact. Throat is clear. Nose is clear. Tympanic membranes are mcclelland. NECK: Supple. No jugular venous distention. No hepatojugular reflux. No carotid bruits. Thyroid is smooth. CARDIOVASCULAR: Regular rate and rhythm without murmurs, clicks, rubs, or gallops. RESPIRATORY: Clear to auscultation and percussion. ABDOMEN: Soft, nontender. No hepatosplenomegaly, no masses, no tenderness. Bowel sounds are active. No bruits. EXTREMITIES: No pitting edema. No cyanosis, no clubbing. Full range of motion. Peripheral pulses are good. BREASTS: Exam deferred. GYNECOLOGICAL: Exam deferred. RECTAL: Exam deferred. MUSCULOSKELETAL: There is pain on palpation of the rib cage under the pacemaker and it is reproducible. NEUROLOGIC: Cranial nerves II-XII intact. No gross defects. Sensation normal, strength normal. Deep tendon reflexes equal bilaterally with Babinski negative. MENTAL STATUS: Alert and oriented x3. IMPRESSION: 1. Anterior chest wall pain. 2. Gastroesophageal reflux disease. 3. Status post pacemaker insertion 09/22/2017. 4. Status post aortic valve replacement in September 2016. Her interventional radiology technologist is Dr. Alvares. PLAN: We will see how she does this morning and possibly discharge today. Follow up with her interventional radiology technologist as an outpatient. TIGIST
--- NOTE | 2017-10-15 14:00 | Discharge Summary ---
DATE: 10/15/2017 DISCHARGE DIAGNOSES: 1. Chest wall pain. 2. Status post pacemaker insertion 09/22/2017. 3. Status post aortic valve replacement in September 2016. 4. GERD. ATTENDING PHYSICIAN: Bishop Castle DO REASON FOR HOSPITALIZATION: The patient had a sensation in her chest that was a hot feeling. It was painful at times, a fleeting sort of secondary kind of pain, especially with palpation of the ribs below the pacemaker insertion site. The patient was seen in the emergency department by Dr. Britton, admitted to the hospital for serial cardiac enzymes. SIGNIFICANT FINDINGS: Cardiac enzymes x2 were negative. EKG x2 showing paced rhythm. It is paced from the atrial point. THERAPY PROVIDED: Observation and cardiac monitoring. Maalox and Protonix. HOSPITAL COURSE: The patient is improved and doing well. Wants to go home. CONDITION ON DISCHARGE: Stable. DISCHARGE INSTRUCTIONS: Follow up with Dr. Castle. The prescription sent home with the patient is Protonix 40 mg once a day, not the omeprazole. She does not feel the omeprazole will help her and could have some side effect to her aortic valve. Continue her home medications of Zetia 10 mg daily, Lopressor 25 mg b.i.d., magnesium 200 mg daily, lovastatin 40 mg daily, Plavix 75 mg daily, Lotensin 40 mg daily. MTDD
== END 2017-10-15 14:10 | disposition home or self-care (01) ==
LOC: ER 20:43 → MEDSURG 10-15 00:59
PROVIDERS: ADMIT Internal Medicine; ATTEND Emergency Medicine
DX: R07.89 Other chest pain (principal); K21.9 Gastro-esophageal reflux disease without esophagitis; Z95.0 Presence of cardiac pacemaker; Z95.2 Presence of prosthetic heart valve
CPT/HCPCS: 71275; 80053; 82553; 83880; 84484; 85025; 85379; 93005; 93010; 99285

== ENCOUNTER 2018-11-18 09:04 | Emergency (ER) | payer MEDICARE, BC ==
[2018-11-18] MEDS ORDERED: ONDANSETRON HCL IV 4 MG/2 ML VIAL IVP ONE (09:16)
[2018-11-18] MEDS ORDERED: MORPHINE SULFATE 10 MG/ML VIAL IVP ONE ×2 (09:16→10:47)
[2018-11-18 09:19] LABS: HEMATOCRIT 43.5 % (35.0-47.0); HEMOGLOBIN 13.7 gm/dl (11.6-16.0); MEAN CELL VOLUME 92.6 fl (81-97); MEAN CORPUSCULAR HEMOGLOBIN 29.1 pg (27-33); MEAN CORPUSCULAR HGB CONC 31.5 g/dl (32-36); MEAN PLATELET VOLUME 9.8 fl (7.4-10.4); PLATELET COUNT 212 K/uL (130-400); RED CELL DISTRIBUTION WIDTH 13.9 % (11.5-14.5); WHITE BLOOD COUNT W/O DIFF 10.5 K/uL (4.2-12.2)
--- NOTE | 2018-11-18 09:19 | Emergency Department Record ---
History of Present Illness - General Chief Complaint: Trauma Stated Complaint: FALL Time Seen by Provider: 11/18/18 09:09 Source: Patient Mode of Arrival: EMS Limitations: No limitations - History of Present Illness Initial Comments: The patient is here due to tripping and falling at home 2-3 hours ago and landing on her L side. She may have bumped her head on her bed but mainly has had L arm and L hip pain since the fall. She denies any LUGO, neck pain, visual changes, nausea, Cp, SOB, AP or back pain. The patient does take Plavix but did not take it today. Complaint: Fall, Injury Onset/Timin -: Hour(s) - Related Data Previous Rx's Medication Instructions Recorded Omeprazole 20 mg PO DAILY #30 cap. 10/15/17 Pantoprazole Sodium [Protonix] 40 mg PO DAILY #30 tablet. 10/15/17 Allergies Allergy/AdvReac Type Severity Reaction Status Date / Time Penicillins Allergy HIVES Verified 09/20/17 09:17 Review of Systems Constitutional: Denies: Chills, Fever Eyes: Denies: Eye discharge ENT: Denies: Congestion Respiratory: Denies: Cough, Dyspnea Cardiovascular: Denies: Arrhythmia Endocrine: Denies: Fatigue Gastrointestinal: Denies: Abdominal pain, Nausea Genitourinary: Denies: Dysuria Musculoskeletal: Denies: Arthralgia Past Medical History - SOCIAL HISTORY Smoking Status: Never smoker Drug Use: None - RESPIRATORY Hx Respiratory Disorders: No - CARDIOVASCULAR Hx Cardio Disorders: Yes Hx Hypertension: Yes Hx Pacemaker/Defib: Yes Comment:: murmur - NEURO Hx Neuro Disorders: No - GI Hx GI Disorders: No - Hx Genitourinary Disorders: Yes Hx UTI: Yes - ENDOCRINE Hx Endocrine Disorders: No Hx Diabetes: No Hx Thyroid Disease: No - MUSCULOSKELETAL Hx Musculoskeletal Disorders: No - PSYCH Hx Psych Problems: No - HEMATOLOGY/ONCOLOGY Hx Hematology/Oncology Disorders: No Family Medical History Family Hx Comment (NOT TO BE USED IN PLACE OF ITEMS BELOW): DENIES Physical Exam - General General Appearance: Alert, Oriented x3, Cooperative, No acute distress - Head Head exam: Atraumatic, Normocephalic, Normal inspection - Eye Eye exam: Normal appearance, PERRL, EOMI - Neck Neck exam: Normal inspection, Full ROM. negative: Tenderness (There is no Cspine tenderness.) - Respiratory Respiratory exam: Normal lung sounds bilaterally. negative: Chest wall tenderness, Respiratory distress - Cardiovascular Cardiovascular Exam: Regular rate, Normal rhythm, Normal heart sounds - GI/Abdominal GI/Abdominal exam: Soft, Normal bowel sounds. negative: Tenderness - Extremities Extremities exam: Full ROM, Normal capillary refill, Tenderness (There is distal L humerus tenderness and L hip tenderness. The L leg is shortened and rotated.). negative: Normal inspection - Back Back exam: Reports: Normal inspection. Denies: Paraspinal tenderness, Vertebral tenderness - Neurological Neurological exam: Alert. negative: Motor sensory deficit Course - Reevaluation(s) Reevaluation #1: The patient is doing very well at this time. She denies any head or neck pain and her L elbow and hip are feeling better. She also denies any CP, SOB, or HSAKEEL. I did discuss the case with the Trauma Team at [facility] and Dr. Chen does accept the patient in the ER to ER transfer. She is not requesting any more xrays and will order a head and neck CT at [facility]. 11/18/18 10:24 Medical Decision Making - Lab Data Result diagrams: 11/18/18 08:50 11/18/18 08:50 Disposition Disposition: Transfer Clinical Impression: Hip fracture Qualifiers: Encounter type: initial encounter Fracture type: closed Laterality: left Qualified Code(s): S72.002A - Fracture of unspecified part of neck of left femur , initial encounter for closed fracture Disposition: Acute Care Hospital Transfer Transfer To: [facility] Reason For Transfer: Trauma Accepting Physician: April Time Discussed w/Accepting Physician: 10:26 Condition: (2) Stable Forms: Patient Portal Access Time of Disposition: 10:26 Quality - Quality Measures Quality Measures: N/A - Blood Pressure Screening View Details: Yes Does Patient Have Any of the Following: Active Dx of HTN Blood Pressure Classification: Hypertensive Reading Systolic Measurement: 196 Diastolic Measurement: 100 Screening for High Blood Pressure: Patient Exclusion, Hx of HTN [G9744]
[2018-11-18 09:25] LABS: PLATELET ESTIMATE NORMAL (NORMAL)
[2018-11-18 09:29] LABS: PARTIAL THROMBOPLASTIN TIME 28.8 SECONDS (24.5-39.1); PROTHROMBIN TIME (PATIENT) 10.4 SECONDS (9.5-12.1)
[2018-11-18 09:31] LABS: BLOOD UREA NITROGEN 18 mg/dL (8-23); CREATININE 0.8 mg/dL (0.5-0.9); EST GLOMERULAR FILTRATION RATE > 60 mL/min
[2018-11-18 09:34] LABS: GLUCOSE,RANDOM 134 mg/dL (74-109)
--- NOTE | 2018-11-18 11:19 | Emergency Department Record ---
History of Present Illness - General Chief Complaint: Trauma Stated Complaint: FALL Time Seen by Provider: 11/18/18 09:09 Source: Patient Mode of Arrival: EMS Limitations: No limitations - History of Present Illness Onset/Timin -: Hour(s) Loss of Consciousness: No Consistency: Constant - Related Data Previous Rx's Medication Instructions Recorded Omeprazole 20 mg PO DAILY #30 cap. 10/15/17 Pantoprazole Sodium [Protonix] 40 mg PO DAILY #30 tablet. 10/15/17 Allergies Allergy/AdvReac Type Severity Reaction Status Date / Time Penicillins Allergy HIVES Verified 09/20/17 09:17 Travel Screening - Travel/Exposure Within Last 30 Days Have you traveled within the last 30 days?: No - Travel/Exposure Within Last Year Have you traveled outside the [place] in the last year?: No - Additonal Travel Details Have you been exposed to anyone with a communicable illness?: No Review of Systems Constitutional: Denies: Chills, Fever Eyes: Denies: Eye discharge ENT: Denies: Congestion Respiratory: Denies: Cough, Dyspnea Cardiovascular: Denies: Arrhythmia Endocrine: Denies: Fatigue Gastrointestinal: Denies: Abdominal pain, Nausea Genitourinary: Denies: Dysuria Musculoskeletal: Denies: Arthralgia Past Medical History - SOCIAL HISTORY Smoking Status: Never smoker Drug Use: None - RESPIRATORY Hx Respiratory Disorders: No - CARDIOVASCULAR Hx Cardio Disorders: Yes Hx Hypertension: Yes Hx Pacemaker/Defib: Yes Comment:: murmur - NEURO Hx Neuro Disorders: No - GI Hx GI Disorders: No - Hx Genitourinary Disorders: Yes Hx UTI: Yes - ENDOCRINE Hx Endocrine Disorders: No Hx Diabetes: No Hx Thyroid Disease: No - MUSCULOSKELETAL Hx Musculoskeletal Disorders: No - PSYCH Hx Psych Problems: No - HEMATOLOGY/ONCOLOGY Hx Hematology/Oncology Disorders: No Family Medical History Family Hx Comment (NOT TO BE USED IN PLACE OF ITEMS BELOW): DENIES Physical Exam - General Limitations: No limitations Course Vital Signs 11/18/18 09:10 Temperature 97.7 F Pulse Rate 86 Respiratory 18 Rate Blood Pressure 196/100 Pulse Ox 98 Medical Decision Making - Data Complexity MDM Data: X-Ray Ordered and/or Reviewed - Lab Data Result diagrams: 11/18/18 08:50 11/18/18 08:50 Lab Results 11/18/18 11/18/18 11/18/18 Range/Units 08:50 08:50 08:50 WBC 10.5 (4.2-12.2) K/uL RBC 4.70 (3.80-5.40) M/uL Hgb 13.7 (11.6-16.0) gm/dl Hct 43.5 (35.0-47.0) % MCV 92.6 (81-97) fl MCH 29.1 (27-33) pg MCHC 31.5 L (32-36) g/dl RDW 13.9 (11.5-14.5) % Plt Count 212 (130-400) K/uL MPV 9.8 (7.4-10.4) fl Neutrophils % 87.0 H (47-80) % Eosinophils % Not Reportable Basophils % Not Reportable Lymphocytes 7.0 L (16-45) % Monocytes 6.0 (0-9) % Platelet Estimate Normal (NORMAL) RBC Morphology Normal PT 10.4 (9.5-12.1) SECONDS INR 1.0 APTT 28.8 (24.5-39.1) SECONDS Sodium 142 (136-145) mmol/L Potassium 3.6 (3.4-4.5) mmol/L Chloride 100 (98-107) mmol/L Carbon Dioxide 27.0 (22-29) mmol/L Anion Gap 15.0 (7-16) BUN 18 (8-23) mg/dL Creatinine 0.8 (0.5-0.9) mg/dL Estimated GFR > 60 mL/min Random Glucose 134 H (74-109) mg/dL Calcium 9.2 (8.8-10.2) mg/dL - Radiology Data Radiology results: Report reviewed (L Hip: Femoral neck fx with displacement. L Elbow: Medial condyle displaced fx. L knee: Neg for acute changes.) Disposition Clinical Impression: Hip fracture Qualifiers: Encounter type: initial encounter Fracture type: closed Laterality: left Qualified Code(s): S72.002A - Fracture of unspecified part of neck of left femur , initial encounter for closed fracture Disposition: Acute Care Hospital Transfer Condition: (2) Stable Forms: Patient Portal Access Quality - Quality Measures Quality Measures: N/A - Blood Pressure Screening View Details: Yes Does Patient Have Any of the Following: Active Dx of HTN Blood Pressure Classification: Hypertensive Reading Systolic Measurement: 196 Diastolic Measurement: 100 Screening for High Blood Pressure: Patient Exclusion, Hx of HTN [G9749]
--- NOTE | 2018-11-21 09:54 | RADIOLOGY REPORT ---
EXAM: HIP,UNILAT, 2-3 VIEW LEFT HISTORY: PAIN POST FALL. TECHNIQUE: An AP view of the pelvis is obtained as well as a crosstable lateral view of the left hip. COMPARISON: None. ENCOUNTER: Initial. FINDINGS: There is diffuse osteopenia. There is evidence of an acute fracture of the proximal to mid left femoral neck with mild to moderate apex anterior angulation of the fracture fragments. Additionally, there is proximal and lateral displacement of the distal fracture fragment by approximately 2 cm. No other fracture is seen nor is there dislocation. There are mild degenerative changes of the hips and sacroiliac joints. IMPRESSION: 1. DISPLACED AND ANGULATED FRACTURE OF THE PROXIMAL TO MID LEFT FEMORAL NECK. 2. MILD DEGENERATIVE CHANGES OF THE HIPS. [facility]BER: [id number] [facility]
--- NOTE | 2018-11-21 09:57 | RADIOLOGY REPORT ---
EXAM: KNEE, LEFT 1 or 2 VIEWS HISTORY: PAIN POST FALL. TECHNIQUE: AP and crosstable lateral views of the left knee are obtained. COMPARISON: None. ENCOUNTER: Initial. FINDINGS: There is diffuse osteopenia limiting evaluation. Total left knee arthroplasty changes are identified with the metallic prosthetic components appearing well-seated. No definite fracture nor dislocation. The patella appears somewhat high-riding likely relating to straight-legged positioning. No focal soft tissue abnormality. IMPRESSION: 1. DIFFUSE OSTEOPENIA. STATUS POST TOTAL LEFT KNEE ARTHROPLASTY. 2. NO FRACTURE OR DISLOCATION. JOB NUMBER: [id number] [facility]
--- NOTE | 2018-11-21 10:02 | RADIOLOGY REPORT ---
EXAM: HUMERUS, LEFT HISTORY: PAIN POST FALL. TECHNIQUE: AP and lateral views of the left humerus are obtained. COMPARISON: CT angiogram of the chest dated 10/14/2017. Two-view chest radiographic examination dated 09/11/2017. ENCOUNTER: Initial. FINDINGS: Diffuse osteopenia limits evaluation. There is an oblique, mildly displaced intra-articular fracture of the distal humerus extending from the medial supracondylar region distally to the medial margin of the capitellum. The smaller fracture fragment is displaced medially and anteriorly. No other definite fracture identified though a nondisplaced transverse fracture through the capitellum would be difficult to exclude. The left shoulder to the extent visualized is maintained. A dual-lead transvenous cardiac stimulator is in place. Prosthetic aortic valve redemonstrated. The heart is enlarged. Mild linear scarring versus atelectasis in the lateral left lung base. IMPRESSION: DISPLACED, POSSIBLY COMMINUTED FRACTURE OF THE DISTAL HUMERUS, DISCUSSED ABOVE. [facility]: [id number] [facility]
== END 2018-11-18 10:54 | disposition short-term general hospital (02) ==
LOC: ER 09:04
DX: S72.002A Fracture of unspecified part of neck of left femur, initial encounter for closed fracture (principal); S42.442A Displaced fracture (avulsion) of medial epicondyle of left humerus, initial encounter for closed fracture; M25.562 Pain in left knee; W01.10XA Fall on same level from slipping, tripping and stumbling with subsequent striking against unspecified object, initial encounter; Y92.002 Bathroom of unspecified non-institutional (private) residence as the place of occurrence of the external cause; I10 Essential (primary) hypertension; Z79.01 Long term (current) use of anticoagulants
CPT/HCPCS: 29105; 99285 ×2; 96376; 96374; 96375; 85730; 85610; 80048; 85027; 73060; 73560; 73502; J2405; J2270

== ENCOUNTER 2018-11-23 12:12 | Inpatient (IN) | payer MEDICARE, BC ==
[2018-11-23] MEDS: ACETAMINOPHEN 325 MG TAB PO PRN (17:08)
[2018-11-23] MEDS: EZETIMIBE 10 MG TABLET PO SCH (21:04)
[2018-11-23] MEDS: METOPROLOL TART 25 MG TABLET PO SCH (21:04)
[2018-11-23] MEDS: APIXABAN 2.5MG TABLET PO SCH (21:05)
[2018-11-23] MEDS: TRAZODONE 50 MG TABLET PO SCH (21:05)
[2018-11-24] MEDS: PANTOPRAZOLE SODIUM 40 MG TABLET PO SCH (06:20)
--- NOTE | 2018-11-24 08:08 | History & Physical ---
History of Present Illness - Date Date of Service for History & Physical: 11/24/18 - History of Present Illness Admitting Diagnosis: mult. rehab services due to fall from standing History of Present Illness: patient fell and found in her home transported to [facility] ED with diagnosis of left hip fracture and left humerus fracture and than transported to [facility] where the left hip was fixed on oct and the left upper arm repaired on nov 21, [address] Cali and Dr. Trevino. Patient was transferred to [facility] swing bed for rehab. H pacemaker and aortic valve repair CAD. Patient needs 30 days of DVT prophylaxis with eliquis 2.5 mg BID. Patient had a left supracondylar fracture and left hip fracture. General - Cognitive Patterns Speech: Normal Thought Process: Intact Thought Content: Normal Orientation: Person, Time, Responds to Name, Recognizes Familiar Faces or Places - Communication Preferred Language?: [place] [employer] Reception[employer] Required: No Level of Education: High School Preferred Method of Learning: Seeing, Doing Comprehension Ability: Impairment Able to Read: Yes Able to Write: Yes Select best description of speech pattern: Clear Speech Ability to express ideas and wants: Understood Understanding verbal content: Understands - Psychosocial Well-Being Usual Living Arrangement: Alone - Physical Functioning Activity Level: Up with assist x3 Turning: With total assist ROM Ability: Limited/Compromised Ambulation Ability: Dependent Bed Mobility: Dependent Transfer Ability: Dependent Bathing Ability: Dependent Personal Hygiene: Dependent Dressing Ability: Dependent Eating (Feeding) Ability: Needs Assist Toileting Ability: Dependent Administer Own Medication: Needs Assist - Continence Bowel Pattern: Normal for Patient Bladder Pattern: Normal - Dental Status Unable to examine: No Broken or loosely fitting full or partial dentures: No No natural teeth or tooth fragment(s) (edentulous): No Abnormal mouth tissue (ulcers, masses, oral lesions, etc.): No Obvious or likely cavity or broken natural teeth: No Inflamed or bleeding gums or loose natural teeth: No Mouth/facial pain, discomfort or difficulty chewing: No - Nutrition Screening Poor oral intake > 1 week: No Unplanned weight loss in specified time frame: No Nutrition Support via tube feedings or parenteral nutrition: No Pressure Ulcer: No Significantly underweight define as BMI <18.5 kg/m2: No Albumin <2.5mg/dL: No Persistent nausea/vomiting/diarrhea >3 days: No Difficulty chewing/swallowing/mouth sores: No Admitting Diagnosis: No Nutrition Risk Score: Low Risk Review of Systems Reviewed: No additional complaints except as noted below Constitutional: Reports: As per HPI. Denies: Chills, Fever, Malaise, Night sweats, Weakness, Weight change Eyes: Reports: As per HPI. Denies: Eye discharge, Eye pain, Photophobia, Vision change ENT: Reports: As per HPI. Denies: Congestion, Dental pain, Ear pain, Epistaxis , Hearing loss, Throat pain Respiratory: Reports: As per HPI. Denies: Cough, Dyspnea, Hemoptysis, Stridor, Wheezes Cardiovascular: Reports: As per HPI. Denies: Arrhythmia, Chest pain, Dyspnea on exertion, Edema, Murmurs, Orthopnea, Palpitations, Paroxysmal nocturnal dyspnea, Rheumatic Fever, Syncope Endocrine: Reports: As per HPI. Denies: Fatigue, Heat or cold intolerance, Polydipsia, Polyuria Gastrointestinal: Reports: As per HPI. Denies: Abdominal pain, Constipation, Diarrhea, Hematemesis, Hematochezia, Melena, Nausea, Vomiting Genitourinary: Reports: As per HPI. Denies: Abnormal menses, Discharge, Dyspareunia, Dysuria, Frequency, Hematuria, Incontinence, Retention, Urgency Musculoskeletal: Reports: As per HPI. Denies: Arthralgia, Back pain, Gout, Joint swelling, Myalgia, Neck pain Skin: Reports: As per HPI, Other (swelling left arm post surgery). Denies: Bruising, Change in color, Change in hair/nails, Lesions, Pruritus, Rash Neurological: Reports: As per HPI. Denies: Abnormal gait, Confusion, Headache, Numbness, Paresthesias, Seizure, Tingling, Tremors, Vertigo, Weakness Psychiatric: Reports: As per HPI. Denies: Anxiety, Auditory hallucinations, Depression, Homicidal thoughts, Suicidal thoughts, Visual hallucinations Hematological/Lymphatic: Reports: As per HPI. Denies: Anemia, Blood Clots, Easy bleeding, Easy bruising, Swollen glands Past Medical History - SOCIAL HISTORY Smoking Status: Never smoker Alcohol Use: None - SURGICAL HISTORY Past Surgical History: valve replacement Sep 2016. left total knee. left ankle. pacemaker 08/2017 - RESPIRATORY Hx Respiratory Disorders: No - CARDIOVASCULAR Hx Cardio Disorders: Yes Hx Cardiac Cath: Yes (Aortic valve repair) Hx Hypertension: Yes Hx Pacemaker/Defib: Yes Hx Coronary Artery Disease: Yes Comment:: murmur - NEURO Hx Neuro Disorders: No Comment:: appears confused upon adm here - GI Hx GI Disorders: No - Hx Genitourinary Disorders: Yes Hx UTI: Yes - ENDOCRINE Hx Endocrine Disorders: No Hx Diabetes: No Hx Thyroid Disease: No - MUSCULOSKELETAL Hx Musculoskeletal Disorders: Yes Hx Arthritis: Yes Comment:: Left TKA - PSYCH Hx Psych Problems: Yes Hx Anxiety: Yes - HEMATOLOGY/ONCOLOGY Hx Hematology/Oncology Disorders: Yes Hx Anemia: Yes Family Medical History Any Significant Family History?: Yes Hx Diabetes: Mother, Brother/Sister H&P Meds/Allergies - Allergies Allergies: Allergies Allergy/AdvReac Type Severity Reaction Status Date / Time Penicillins Allergy HIVES Verified 09/20/17 09:17 - Home Medications Home Medications Medication Instructions Recorded Confirmed Last Taken Pantoprazole Sodium [Protonix] 40 mg PO DAILYAC 11/23/18 11/23/18 Unknown - Active Medications Active Medications: Current Medications Acetaminophen (Tylenol 325mg) 650 mg PO Q6H PRN PRN Reason: PAIN - MILD TO MODERATE (1-7) Last Admin: 11/23/18 17:08 Dose: 650 mg Apixaban (Eliquis) 2.5 mg PO BID [facility] Last Admin: 11/23/18 21:05 Dose: 2.5 mg Aspirin (Ecotrin (Ec)) 81 mg PO DAILY [facility] Benazepril HCl (Lotensin) 20 mg PO DAILY [facility] Clopidogrel Bisulfate (Plavix) 75 mg PO DAILY [facility] Ezetimibe (Zetia) 10 mg PO QHS [facility] Last Admin: 11/23/18 21:04 Dose: 10 mg Metoprolol Tartrate (Lopressor) 25 mg PO BID [facility] Last Admin: 11/23/18 21:04 Dose: 25 mg Pantoprazole Sodium (Protonix) 40 mg PO DAILYAC [facility] Last Admin: 11/24/18 06:20 Dose: 40 mg Polyethylene Glycol (Miralax) 17 gm PO DAILY [facility] Trazodone HCl (Desyrel) 25 mg PO QHS [facility] Last Admin: 11/23/18 21:05 Dose: 25 mg Vitamin D (Vitamin D3) 2,000 unit PO DAILY [facility] Physical Exam - Vital Signs Vital Signs: Vital Signs - Last 24 Hrs Temp Pulse Resp BP Pulse Ox 11/23/18 20:00 97.6 F 96 H 18 169/77 94 L 11/23/18 18:35 99 H 18 157/77 11/23/18 16:10 98.5 F 84 18 239/107 93 L - General General Appearance: Alert, Cooperative, No acute distress, Other (orient times two and not sure of her location) - Head Head exam: Normal inspection - Eye Eye exam: Normal appearance, PERRL Pupils: Normal accommodation - ENT ENT exam: Normal exam, Mucous membranes moist, Normal external ear exam, Normal orophraynx, TM's normal bilaterally Ear exam: Normal external inspection. negative: External canal tenderness Nasal Exam: Normal inspection. negative: Discharge, Sinus tenderness Mouth exam: Normal external inspection, Tongue normal Teeth exam: Normal inspection. negative: Dental caries Throat exam: Normal inspection. negative: Tonsillar erythema, Tonsillar exudate - Neck Neck exam: Normal inspection, Full ROM. negative: Tenderness - Respiratory Respiratory exam: Normal lung sounds bilaterally. negative: Respiratory distress - Cardiovascular Cardiovascular Exam: Regular rate, Normal rhythm, Normal heart sounds - GI/Abdominal GI/Abdominal exam: Soft, Normal bowel sounds. negative: Tenderness - Rectal Rectal exam: Deferred - exam: Deferred - Extremities Extremities exam: Other (left hand swollen and in an OCL splint, Also post op left hip surgery) - Back Back exam: Reports: Normal inspection - Neurological Neurological exam: Abnormal gait (because of surgery left hip) - Psychiatric Psychiatric exam: Normal affect, Normal mood - Skin Skin exam: Dry, Intact, Normal color, Warm Discharge Potential - Discharge Potential Discharge Potential: good discharge potential to back to home. - Discharge Needs Community Services Used Prior to Admission: None Patient Discharge Plan Description: Return Home Plan - Swing Bed Certification Initial Certification Due: 11/23/18 14 Day Re-Cert Due: 12/07/18 44 Day Re-Cert Due: 01/06/19 74 Day Re-Cert Due: 02/05/19 - Detailed Diagnosis and Plan (1) Hip fracture Current Visit: No Status: Acute Qualifiers: Encounter type: initial encounter Fracture type: closed Laterality: left Qualified Code(s): S72.002A - Fracture of unspecified part of neck of left femur, initial encounter for closed fracture Base Code: S72.009A - FRACTURE OF UNSP PART OF NECK OF UNSP FEMUR, INIT Priority: High (2) Supracondylar fracture of humerus Current Visit: Yes Status: Acute Qualifiers: Encounter type: initial encounter Laterality: left Priority: High (3) Hypertension Current Visit: Yes Status: Acute Base Code: I10 - ESSENTIAL (PRIMARY) HYPERTENSION Priority: Low (4) H/O aortic valve repair Current Visit: Yes Status: Acute Base Code: Z98.890 - OTHER SPECIFIED POSTPROCEDURAL STATES; Z86.79 - PERSONAL HISTORY OF OTHER DISEASES OF THE CIRCULATORY SYSTEM Priority: Low (5) CAD (coronary artery disease) Current Visit: Yes Status: Acute Base Code: I25.10 - ATHSCL HEART DISEASE OF [place] CORONARY ARTERY W/O ANG PCTRS Priority: Medium (6) History of pacemaker Current Visit: Yes Status: Acute Base Code: Z95.0 - PRESENCE OF CARDIAC PACEMAKER Priority: Low (7) Anemia Current Visit: Yes Status: Acute Qualifiers: Anemia type: other cause Base Code: D64.9 - ANEMIA, UNSPECIFIED Priority: Medium (8) BPV (benign positional vertigo) Current Visit: Yes Status: Acute Base Code: H81.10 - BENIGN PAROXYSMAL VERTIGO, UNSPECIFIED EAR Priority: Low - Disposition goal is to return home
[2018-11-24 09:32] LABS: HEMATOCRIT 33.6 % (35.0-47.0); HEMOGLOBIN 10.8 gm/dl (11.6-16.0); MEAN CELL VOLUME 93.1 fl (81-97); MEAN CORPUSCULAR HEMOGLOBIN 29.9 pg (27-33); MEAN CORPUSCULAR HGB CONC 32.1 g/dl (32-36); MEAN PLATELET VOLUME 9.8 fl (7.4-10.4); PLATELET COUNT 224 K/uL (130-400); RED BLOOD COUNT 3.61 M/uL (3.80-5.40); WHITE BLOOD COUNT W/O DIFF 8.9 K/uL (4.2-12.2)
[2018-11-24 09:59] LABS: BLOOD UREA NITROGEN 16 mg/dL (8-23); CREATININE 0.7 mg/dL (0.5-0.9); EST GLOMERULAR FILTRATION RATE > 60 mL/min; GLUCOSE,RANDOM 179 mg/dL (74-109)
[2018-11-24] MEDS ORDERED: ASPIRIN 81 MG TABEC PO SCH (10:00)
[2018-11-24] MEDS ORDERED: BENAZEPRIL 20 MG TABLET PO SCH (10:00)
[2018-11-24] MEDS: ACETAMINOPHEN 325 MG TAB PO PRN (10:08)
[2018-11-24] MEDS: METOPROLOL TART 25 MG TABLET PO SCH ×2 (10:09→21:24)
[2018-11-24] MEDS: APIXABAN 2.5MG TABLET PO SCH ×2 (10:09→21:24)
[2018-11-24] MEDS: CHOLECALCIFEROL 1,000 UNIT TABLET PO SCH (10:09)
[2018-11-24] MEDS: POLYETHYLENE GLY 17 GM PACKET PO SCH (10:09)
[2018-11-24] MEDS: CLOPIDOGREL 75MG TABLET PO SCH (10:09)
[2018-11-24] MEDS: BENAZEPRIL 20 MG TABLET PO SCH (10:10)
--- NOTE | 2018-11-24 10:58 | Rehab Evaluation ---
Patient Information - Patient Information Diagnosis: fall from standing Ordered Treatment: OT Evaluate and Treat Status: Initial Evaluation Surgery: Yes (left hip hemiarthroplasty 11/19/18, left humerus ORIF 11/21/18) History: Detail (Pt fell at home sustaining a left hip and left humerus fracture. 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 PMH - Respiratory Hx Respiratory Disorders No PMH - Cardiovascular Hx Cardiovascular Disorders Yes Hx Cardiac Catheterization Yes: Aortic valve repair Hx Hypertension Yes Hx Pacemaker/Defibrillator Yes Hx Coronary Artery Disease Yes Comment: murmur PMH - Neuro Hx Neurological Disorders No Hx Seizures No Comment: appears confused upon adm here PMH - GI Hx Gastrointestinal Disorders No PMH - Hx Genitourinary Disorders Yes Hx Urinary Tract Infection Yes PMH - Endocrine Hx Endocrine Disorders No Hx Diabetes No Hx Thyroid Disease No PMH - Musculoskeletal Hx Musculoskeletal Disorders Yes Hx Arthritis Yes Comment: Left TKA PMH - Psych Hx Psychiatric Problems Yes Hx Anxiety Yes PMH - Hematology/Oncology Hx Hematology/Oncology Yes Disorders Hx Anemia Yes Premorbid Status: Detail (Pt lives alone in a 1 story house with basement. She stays on the main level. She has 3 steps, a landing and another small step with 1 railing at the entrance. Pt has a walk in shower with a seat and grab bars and an elevated toilet with grab bar. Pt is responsible for light meal prep, light home mgmt and laundry. She has 3 daughters, 2 live close and assist as needed. She does not drive.) Social History: Detail (Supportive daughters.) Precautions: [place], Fall, Other (WBAT left LE, NWB left UE, posterior hip precautions. Pt has a left elbow splint to be worn x 2 weeks.) - Time With Patient Total Time Spent With Patient (Min): 45 Treatment Procedures: Detail (OT eval low complexity) Subjective Information - Subjective Information Per Patient Objective Data - Pain Pain Present: Yes (0/10) - Mental Status Patient Orientation: Person (Pt oriented to self, age, birthday and reason for hospitalization although she was not sure of location.) - Visual Perception Appears within normal limits for therapeutic activities (Pt wears glasses at all times.) - ROM Not within normal limits (Right UE AROM WNL, Left UE AROM limited at shoulder flexion due to weight of elbow cast, left elbow and wrist immobilized with cast/ splint, left finger motion limited due to significant edema.) - Strength/Tone Not within normal limits (Right UE strength 4+/5, left UE not formally tested.) - Coordination Deficit (Right UE WNL, left UE impaired due to edema and immobilization.) - Bed Mobility Dependent (Max assist x 2 for sit to supine, to lift legs and lower upper body down to bed.) - Transfers Needs Assist (Mod assist x 2 for sit to stand from chair and commode heights. Mod assist x 1 for pivot transfer from commode to EOB.) - Balance Balance Sitting: Good Balance Standing: Poor - Sensation Intact - Gait Detail (Pt not able to ambulate at this time.) - ADL's/IADL's Detail (Pt is requiring total assist for total body dressing and bathing, she reports she is able to eat after set up, she required max assist for toileting on commode including doffing/donning briefs and toileting hygiene.) Therapy Assessment - Therapy Assessment Detail (Pt presents with significantly impaired endurance needed for self cares and functional mobility, decreased Ind with self cares and functional mobility.) Problem List - Problem List Occupational Therapy Problem List: Detail (1. Decreased Ind with total body dressing. 2. Decreased Ind with showering/bathing. 3. Decreased knowledge of hip precautions and use of adaptive equipment for modified self cares. 4. Decreased endurance for self cares and functional mobility. 5. Decreased Ind with functional mobility.) Goals - Goals Occupational Therapy Goals: 1. Pt will be Ind with modified total body dressing. 2. Pt will be Ind with showering/bathing using modified techniques. 3. Pt will recall total hip precautions and be Ind with self cares using adaptive equipment. 4. Pt will demonstrate improved endurance needed for self cares and functional mobility. 5. Pt will be safe and Ind with mobility needed for self cares and IADLs. Prognosis - Prognosis Good Plan - Plan Occupational Therapy Plan: OT 2-4 times per week to address self cares, functional mobility, endurance and IADLs.
--- NOTE | 2018-11-24 11:05 | Rehab Evaluation ---
Patient Information - Patient Information Diagnosis: fall from standing Ordered Treatment: OT Evaluate and Treat Surgery: Yes (left hip hemiarthroplasty 11/19/18, left humerus ORIF 11/21/18) History: Detail (Pt fell at home sustaining a left hip and left humerus fracture. 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 PMH - Respiratory Hx Respiratory Disorders No PMH - Cardiovascular Hx Cardiovascular Disorders Yes Hx Cardiac Catheterization Yes: Aortic valve repair Hx Hypertension Yes Hx Pacemaker/Defibrillator Yes Hx Coronary Artery Disease Yes Comment: murmur PMH - Neuro Hx Neurological Disorders No Hx Seizures No Comment: appears confused upon adm here PMH - GI Hx Gastrointestinal Disorders No PMH - Hx Genitourinary Disorders Yes Hx Urinary Tract Infection Yes PMH - Endocrine Hx Endocrine Disorders No Hx Diabetes No Hx Thyroid Disease No PMH - Musculoskeletal Hx Musculoskeletal Disorders Yes Hx Arthritis Yes Comment: Left TKA PMH - Psych Hx Psychiatric Problems Yes Hx Anxiety Yes PMH - Hematology/Oncology Hx Hematology/Oncology Yes Disorders Hx Anemia Yes Premorbid Status: Detail (Pt lives alone in a 1 story house with basement. She stays on the main level. She has 3 steps, a landing and another small step with 1 railing at the entrance. Pt has a walk in shower with a seat and grab bars and an elevated toilet with grab bar. Pt is responsible for light meal prep, light home mgmt and laundry. She has 3 daughters, 2 live close and assist as needed. She does not drive.) Precautions: [place], Fall, Other (LUE NWB, L LE WBAT) - Time With Patient Total Time Spent With Patient (Min): 30 Treatment Procedures: Detail (Initial Eval, Transfer training.) Subjective Information - Subjective Information Per Patient (The patient had no complaints of pain. Patient was anxious ie: transfers.) Objective Data - Mental Status Patient Orientation: Person, Time (patient knew birthdate. Unsure if patient knows where she is, although she does realize she is in a Rehab facility.) - Visual Perception Other (Has glasses.) - ROM Not within normal limits (L hip ROM was within posterior THR precautions. Bilateral AROM was limited in dorsiflexion aprox -5 degrees ( lacking 5 degrees from neutral).) - Strength/Tone Not within normal limits (The patient's L LE strength was hip flexors 3-/5, hip abductors and adductors (seated) 4-/5, knee flexors 4-/5, quadriceps 3+/5, plantar flexors 4/5, dorsiflexors 4-/5. R LE strength was generally 4/5 except for hip flexors 4-/5.) - Bed Mobility Needs Assist (Max of 2 for sit to supine, one for upper body, one for lower body.) - Transfers Needs Assist (Mod PA of 2 for sit to and from stand and Mod PA of 1 for pivot transfer to comode and to bed.) - Balance Balance Sitting: Fair Balance Standing: Poor - Sensation Intact - Gait Detail (The patient stood with Jean-Claude cane but did not ambulate. Patient stood in flexed trunk and neck posture and hips flexed with wide base of support. The patient was able to partially straighten up when cued verbally.) Therapy Assessment - Therapy Assessment Detail (The patient requires assistance with bed mobility, transfers and is currently nonambulatory. The patient also exhibits increased fatigue with physical activity and increased L LE strength. Feel the patient is a good rehab candidate to improve functional status. Due to stable condition, the PT evaluation complexity is rated as low.) Problem List - Problem List Physical Therapy Problem List: Detail (1) Assistance with bed mobilty and transfers 2) Impaired ambulation s/p L hip fracture 3) Decreased L LE strength 4 )Decreased ability to complete prolonged physical activity.) Goals - Goals Physical Therapy Goals: 1) The patient will be independent with bed mobility. 2 ) The patient will be independent/supervsion with all transfers. 3) The patient will ambulate with appropriate assistive device household distances WBAT on the L LE with supervision for safety. 4) The patient will tolerate 30 minutes of physical activity with one rest period. 5) Increase L LE strength 1/ 3 muscle grade to increase stability gait and increase independence with transfers. Prognosis - Prognosis Good Plan - Plan Physical Therapy Plan: PT 1-2 times a day M-F for gait training, transfer training, bed mobility, LE strengthening exercises and balance exercises.
--- NOTE | 2018-11-24 14:52 | Physical Therapy Tx Note ---
Physical Therapy Tx Note - Treatment Note Tolerated: Good Total Time Spent With Patient: 30 Physical Therapy Tx Note: Detail (The patient was in bed when PT arrived. The patient was able to complete supine to sit with minimal PA of 1 for upper body,( patient was able to move LE's to the edge of the bed). The patient required mod PA of 1 for sit to and stand and pivot transfer to wheelchair with mod PA of 1. The patient was taken to Rehab department. The patient stood in parallel bars with minimal PA of 1 plus one to support L UE. The patient required maximal tactile contact to maintain forward trunk position. The patient pushed heavily back. The patient ambulate 5 feet in parallel bars with cg and maximal tactile contact to maintain forward trunk position of plus one for wheelchair and to support UE, WBAT on the L LE and NWB on the L UE. The patient was fatigued after ambulating and was returned to room. The patient required mod PA of 1 for wheelchair to bed transfer and maximal PA of 2 for sit to supine. The patient was left in bed with call light within reach.) Physical Therapy Problem List: Detail (1) Assistance with bed mobilty and transfers 2) Impaired ambulation s/p L hip fracture 3) Decreased L LE strength 4 )Decreased ability to complete prolonged physical activity.) Physical Therapy Goals: 1) The patient will be independent with bed mobility. 2 ) The patient will be independent/supervsion with all transfers. 3) The patient will ambulate with appropriate assistive device household distances WBAT on the L LE with supervision for safety. 4) The patient will tolerate 30 minutes of physical activity with one rest period. 5) Increase L LE strength 1/ 3 muscle grade to increase stability gait and increase independence with transfers. Physical Therapy Plan: PT 1-2 times a day M-F for gait training, transfer training, bed mobility, LE strengthening exercises and balance exercises.
[2018-11-24] MEDS: EZETIMIBE 10 MG TABLET PO SCH (21:23)
[2018-11-24] MEDS: TRAZODONE 50 MG TABLET PO SCH (21:26)
[2018-11-25] MEDS: ACETAMINOPHEN 325 MG TAB PO PRN ×2 (02:36→10:09)
[2018-11-25] MEDS: PANTOPRAZOLE SODIUM 40 MG TABLET PO SCH (06:14)
[2018-11-25] MEDS: ASCORBIC ACID 500 MG TAB PO SCH (10:10)
[2018-11-25] MEDS: APIXABAN 2.5MG TABLET PO SCH ×2 (10:10→21:21)
[2018-11-25] MEDS: BENAZEPRIL 20 MG TABLET PO SCH (10:10)
[2018-11-25] MEDS: METOPROLOL TART 25 MG TABLET PO SCH ×2 (10:10→21:21)
[2018-11-25] MEDS: CLOPIDOGREL 75MG TABLET PO SCH (10:10)
[2018-11-25] MEDS: FERROUS SULFATE 325 MG TAB PO SCH (10:11)
[2018-11-25] MEDS: CHOLECALCIFEROL 1,000 UNIT TABLET PO SCH (10:11)
[2018-11-25] MEDS: POLYETHYLENE GLY 17 GM PACKET PO SCH (12:22)
--- NOTE | 2018-11-25 13:06 | Physical Therapy Tx Note ---
Physical Therapy Tx Note - Treatment Note Tolerated: Fair Total Time Spent With Patient: 50 Physical Therapy Tx Note: Detail (Pt in bed upon arrival; awake, alert, initially requested to just rest, but responded to mild coaxing to participate. Complained of L hip pain 6/10 from earlier transfer to/from commode; nrsg gave tylenol and other morning meds. Pt came to sitting at edge of bed with moderate assist for upper body to lean forward to sit. Fair sitting balance for applying L UE sling, gait belt. Stand pivot transfer to wheelchair with moderate assist of one and verbal cues for technique. Assisted patient w/ donning shoes, placing feet on wheelchair footrests. Transported to therapy gym for work in parallel bars: Sit/stand w/moderate assist of one and contact guard assist of another, stood briefly, then ambulated one length of parallel bars w/minimal assist of one. Sat in wheelchair for several minutes, then ambulated one more length w/minimal assist of one. Fatigued after treatment but denied pain. Transported back to room; transferred from wheelchair to bed with heavy moderate assist of one, heavy moderate assist to scoot at edge of bed. Max assist of two for assuming supine and for positioning in bed, although participated by pushing through R LE for scooting up in bed. Call light placed within reach, as was bedside table. Reported no pain at end of session.) Physical Therapy Problem List: Detail (1) Assistance with bed mobilty and transfers 2) Impaired ambulation s/p L hip fracture 3) Decreased L LE strength 4 )Decreased ability to complete prolonged physical activity.) Physical Therapy Goals: 1) The patient will be independent with bed mobility. 2 ) The patient will be independent/supervsion with all transfers. 3) The patient will ambulate with appropriate assistive device household distances WBAT on the L LE with supervision for safety. 4) The patient will tolerate 30 minutes of physical activity with one rest period. 5) Increase L LE strength 1/ 3 muscle grade to increase stability gait and increase independence with transfers. Prognosis: Good Physical Therapy Plan: PT 1-2 times a day M-F for gait training, transfer training, bed mobility, LE strengthening exercises and balance exercises.
--- NOTE | 2018-11-25 14:57 | Physical Therapy Tx Note ---
Physical Therapy Tx Note - Treatment Note Tolerated: Good Total Time Spent With Patient: 20 Physical Therapy Tx Note: Detail (Patient was transferring from commode with nursing prior to RIGGING UP WORKER arrival. Patient was supine in bed upon RIGGING UP WORKER arrival. Patient performed the following exercises x10 reps each: ankle pumps, glut squeezes, quad sets, hip adductor squeezes, heel slides, supine hip abduction, SAQ, hamstring sets, and bridging with right LE. Patient tolerated treatment well. Patient reports feeling tired with exercises. Patient was left reclined in bed with call light within reach.) Physical Therapy Problem List: Detail (1) Assistance with bed mobilty and transfers 2) Impaired ambulation s/p L hip fracture 3) Decreased L LE strength 4 )Decreased ability to complete prolonged physical activity.) Physical Therapy Goals: 1) The patient will be independent with bed mobility. 2 ) The patient will be independent/supervsion with all transfers. 3) The patient will ambulate with appropriate assistive device household distances WBAT on the L LE with supervision for safety. 4) The patient will tolerate 30 minutes of physical activity with one rest period. 5) Increase L LE strength 1/ 3 muscle grade to increase stability gait and increase independence with transfers. Prognosis: Good Physical Therapy Plan: PT 1-2 times a day M-F for gait training, transfer training, bed mobility, LE strengthening exercises and balance exercises.
[2018-11-25] MEDS: EZETIMIBE 10 MG TABLET PO SCH (21:21)
[2018-11-25] MEDS: TRAZODONE 50 MG TABLET PO SCH (21:21)
[2018-11-26] MEDS: ACETAMINOPHEN 325 MG TAB PO PRN ×3 (01:01→17:12)
[2018-11-26] MEDS: PANTOPRAZOLE SODIUM 40 MG TABLET PO SCH (06:13)
--- NOTE | 2018-11-26 08:21 | Occupational Therapy Tx Note ---
Occupational Therapy Tx Note - Treatment Note Tolerated: Good Total Time Spent With Patient: 35 (ADL) Occupational Therapy Treatment Note: Detail (S: Pt up in chair, reports she slept well and is feeling better today. O: Pt doffed gown with assist to untie and pull off over left UE. Pt completed partial body sponge bath after set up and with assist to apply soap to washcloth. Pt encouraged to use left hand as an assist. Pt donned t-shirt with min assist for one handed technique and to start over left hand. Pt doffed briefs with max assist and donned underwear and pants with max assist to start over feet, min assist for sit to stand and to maintain static standing using javier walker while OT pulled pants over hips. Stand to sit with min assist and verbal cues. Pt able to comb hair Indly. A: Min assist for upper body javier dressing techniques, max assist for lower body dressing, min assist for upper body sponge bathing. Pt very fatigued and unable to maintain static standing Indly.) Occupational Therapy Problem List: Detail (1. Decreased Ind with total body dressing. 2. Decreased Ind with showering/bathing. 3. Decreased knowledge of hip precautions and use of adaptive equipment for modified self cares. 4. Decreased endurance for self cares and functional mobility. 5. Decreased Ind with functional mobility.) Occupational Therapy Goals: 1. Pt will be Ind with modified total body dressing. 2. Pt will be Ind with showering/bathing using modified techniques. 3. Pt will recall total hip precautions and be Ind with self cares using adaptive equipment. 4. Pt will demonstrate improved endurance needed for self cares and functional mobility. 5. Pt will be safe and Ind with mobility needed for self cares and IADLs. Prognosis: Good Occupational Therapy Plan: OT 2-4 times per week to address self cares, functional mobility, endurance and IADLs.
[2018-11-26] MEDS: BENAZEPRIL 20 MG TABLET PO SCH (10:58)
[2018-11-26] MEDS: FERROUS SULFATE 325 MG TAB PO SCH (10:58)
[2018-11-26] MEDS: CLOPIDOGREL 75MG TABLET PO SCH (10:59)
[2018-11-26] MEDS: POLYETHYLENE GLY 17 GM PACKET PO SCH (10:59)
[2018-11-26] MEDS: METOPROLOL TART 25 MG TABLET PO SCH ×2 (10:59→21:08)
[2018-11-26] MEDS: ASCORBIC ACID 500 MG TAB PO SCH (10:59)
[2018-11-26] MEDS: APIXABAN 2.5MG TABLET PO SCH ×2 (10:59→21:08)
[2018-11-26] MEDS: CHOLECALCIFEROL 1,000 UNIT TABLET PO SCH (10:59)
--- NOTE | 2018-11-26 11:32 | Physical Therapy Tx Note ---
Physical Therapy Tx Note - Treatment Note Tolerated: Good Total Time Spent With Patient: 40 Physical Therapy Tx Note: Detail (The patient was up in chair when PT arrived. The patient had complaints of L groin pain The patient stood x 2 to change pants with verbal cues for proper arm and foot placement and mod to min PA of 1. The patient was taken to Rehab Dept. and ambulated in parallel bars 7 feet x 3 ( rest periods in between) with CG/min PA of 1 plus one with the chair and to monitor L UE. The patient consistently required less assistance with each repetition and stood more upright ( did not extend back with her trunk.) The patient was returned to room and transferred to toilet with min/mod for sit to stand of 1 and CG with pivot turn to toilet with use of grab bar. The patient transferred to bed from wheelchair with Minimal PA of 1. The patient required moderate PA to scoot up in bed in a seated position and moderate PA of 1 and minimal PA of 1 with sit to supine. The patient required less assistance with transfers and bed mobilty and ambulated with less assistance.) Physical Therapy Problem List: Detail (1) Assistance with bed mobilty and transfers 2) Impaired ambulation s/p L hip fracture 3) Decreased L LE strength 4 )Decreased ability to complete prolonged physical activity.) Physical Therapy Goals: 1) The patient will be independent with bed mobility. 2 ) The patient will be independent/supervsion with all transfers. 3) The patient will ambulate with appropriate assistive device household distances WBAT on the L LE with supervision for safety. 4) The patient will tolerate 30 minutes of physical activity with one rest period. 5) Increase L LE strength 1/ 3 muscle grade to increase stability gait and increase independence with transfers. Physical Therapy Plan: PT 1-2 times a day M-F for gait training, transfer training, bed mobility, LE strengthening exercises and balance exercises.
--- NOTE | 2018-11-26 15:10 | Physical Therapy Tx Note ---
Physical Therapy Tx Note - Treatment Note Tolerated: Good Total Time Spent With Patient: 20 Physical Therapy Tx Note: Detail (The patient was up in recliner chair. The patient declined standing activities due to fatigue. The patient completed and was given written instructions for the following exercises: seated LAQ, ankle pumps, hip marching and gluteal sets all x 10 reps. The patient also completed hip adductor squeezes, resistive hip abduction and hamstring curls. The patient also squeezed the ball with L hand x 10 reps and PT completed PROM of L shoulder in flexion and abduction. The patient was reclined per her request and call light was placed within reach. The patient did well with LE exercises and was instructed to complete her exercises on the weekend. Nursing staff was instructed to complete if possible at least one toilet transfer a day in the bathroom with use of grab bar over the weekend.) Physical Therapy Problem List: Detail (1) Assistance with bed mobilty and transfers 2) Impaired ambulation s/p L hip fracture 3) Decreased L LE strength 4 )Decreased ability to complete prolonged physical activity.) Physical Therapy Goals: 1) The patient will be independent with bed mobility. 2 ) The patient will be independent/supervsion with all transfers. 3) The patient will ambulate with appropriate assistive device household distances WBAT on the L LE with supervision for safety. 4) The patient will tolerate 30 minutes of physical activity with one rest period. 5) Increase L LE strength 1/ 3 muscle grade to increase stability gait and increase independence with transfers. Physical Therapy Plan: PT 1-2 times a day M-F for gait training, transfer training, bed mobility, LE strengthening exercises and balance exercises.
[2018-11-26] MEDS: TRAZODONE 50 MG TABLET PO SCH (21:07)
[2018-11-26] MEDS: EZETIMIBE 10 MG TABLET PO SCH (21:08)
[2018-11-27] MEDS: ACETAMINOPHEN 325 MG TAB PO PRN ×2 (05:42→12:57)
[2018-11-27] MEDS: PANTOPRAZOLE SODIUM 40 MG TABLET PO SCH ×2 (05:42→07:59)
[2018-11-27] MEDS: FERROUS SULFATE 325 MG TAB PO SCH (09:27)
[2018-11-27] MEDS: POLYETHYLENE GLY 17 GM PACKET PO SCH (09:27)
[2018-11-27] MEDS: CHOLECALCIFEROL 1,000 UNIT TABLET PO SCH (09:27)
[2018-11-27] MEDS: CLOPIDOGREL 75MG TABLET PO SCH (09:27)
[2018-11-27] MEDS: APIXABAN 2.5MG TABLET PO SCH ×2 (09:27→21:51)
[2018-11-27] MEDS: METOPROLOL TART 25 MG TABLET PO SCH ×2 (09:27→21:51)
[2018-11-27] MEDS: BENAZEPRIL 20 MG TABLET PO SCH (09:27)
[2018-11-27] MEDS: ASCORBIC ACID 500 MG TAB PO SCH (09:27)
[2018-11-27] MEDS: TRAZODONE 50 MG TABLET PO SCH (21:51)
[2018-11-27] MEDS: EZETIMIBE 10 MG TABLET PO SCH (21:53)
[2018-11-28] MEDS: ACETAMINOPHEN 325 MG TAB PO PRN ×2 (05:33→19:57)
[2018-11-28] MEDS: PANTOPRAZOLE SODIUM 40 MG TABLET PO SCH (06:31)
[2018-11-28] MEDS: ASCORBIC ACID 500 MG TAB PO SCH (09:46)
[2018-11-28] MEDS: BENAZEPRIL 20 MG TABLET PO SCH (09:46)
[2018-11-28] MEDS: METOPROLOL TART 25 MG TABLET PO SCH ×2 (09:46→22:03)
[2018-11-28] MEDS: APIXABAN 2.5MG TABLET PO SCH ×2 (09:46→22:03)
[2018-11-28] MEDS: FERROUS SULFATE 325 MG TAB PO SCH (09:46)
[2018-11-28] MEDS: CLOPIDOGREL 75MG TABLET PO SCH (09:46)
[2018-11-28] MEDS: CHOLECALCIFEROL 1,000 UNIT TABLET PO SCH (09:46)
[2018-11-28] MEDS: POLYETHYLENE GLY 17 GM PACKET PO SCH (09:47)
[2018-11-28] MEDS: DIPHENHYDRAMINE HCL 25 MG CAPSULE PO PRN (22:01)
[2018-11-28] MEDS: TRAZODONE 50 MG TABLET PO SCH (22:02)
[2018-11-28] MEDS: EZETIMIBE 10 MG TABLET PO SCH (22:02)
[2018-11-29] MEDS: PANTOPRAZOLE SODIUM 40 MG TABLET PO SCH (06:17)
[2018-11-29] MEDS: ACETAMINOPHEN 325 MG TAB PO PRN ×2 (06:17→18:24)
--- NOTE | 2018-11-29 08:18 | Occupational Therapy Tx Note ---
Occupational Therapy Tx Note - Treatment Note Tolerated: Good Total Time Spent With Patient: 35 (ADL) Occupational Therapy Treatment Note: Detail (S: Pt resting in bed, ready to get up. O: Supine to sit with use of bed rails and min verbal cues. Sit to stand and pivot transferred to wheelchair with min assist x 1. Pt assisted with propelling self to bathroom and stand pivot transferred to commode with grab bar and min assist. Pt able to stand with min assist and pull pants and briefs down for toileting, pt attempted to void but was unable. Sit to stand with grab bar and stood with min assist to pull pants up, pt required min assist to pull briefs and pants over left hip. Pt pivoted to wheelchair with CG assist. Pt completed washing face and combing hair Indly in sitting, pt completed oral hygiene with min assist for toothpaste. Pt doffed shirt with verbal instruction for technique and donned bra with mod assist and shirt with min assist and verbal cues for technique. Pt left up in chair for breakfast with call button in reach. A: Significant improvement with functional mobility , left hand edema continues, improved Ind with javier dressing techniques although pt still becomes easily fatigued.) Occupational Therapy Problem List: Detail (1. Decreased Ind with total body dressing. 2. Decreased Ind with showering/bathing. 3. Decreased knowledge of hip precautions and use of adaptive equipment for modified self cares. 4. Decreased endurance for self cares and functional mobility. 5. Decreased Ind with functional mobility.) Occupational Therapy Goals: 1. Pt will be Ind with modified total body dressing. 2. Pt will be Ind with showering/bathing using modified techniques. 3. Pt will recall total hip precautions and be Ind with self cares using adaptive equipment. 4. Pt will demonstrate improved endurance needed for self cares and functional mobility. 5. Pt will be safe and Ind with mobility needed for self cares and IADLs. Prognosis: Good Occupational Therapy Plan: OT 2-4 times per week to address self cares, functional mobility, endurance and IADLs.
[2018-11-29] MEDS: BENAZEPRIL 20 MG TABLET PO SCH (09:39)
[2018-11-29] MEDS: FERROUS SULFATE 325 MG TAB PO SCH (09:40)
[2018-11-29] MEDS: CLOPIDOGREL 75MG TABLET PO SCH (09:41)
[2018-11-29] MEDS: APIXABAN 2.5MG TABLET PO SCH ×2 (09:41→21:36)
[2018-11-29] MEDS: ASCORBIC ACID 500 MG TAB PO SCH (09:41)
[2018-11-29] MEDS: POLYETHYLENE GLY 17 GM PACKET PO SCH (09:41)
[2018-11-29] MEDS: METOPROLOL TART 25 MG TABLET PO SCH ×2 (09:41→21:36)
[2018-11-29] MEDS: CHOLECALCIFEROL 1,000 UNIT TABLET PO SCH (09:42)
--- NOTE | 2018-11-29 12:02 | Occupational Therapy Tx Note ---
Occupational Therapy Tx Note - Treatment Note Tolerated: Good Total Time Spent With Patient: 15 (ther activity) Occupational Therapy Treatment Note: Detail (S: Pt up in chair, working with PT. O: Pt educated about use of [facility] hosp[facility] for LE dressing. She was able to use [facility] to doff slipper socks with verbal cues, socks donned with max assist, pt donned tennis shoes with use of long shoe horn and assist to tie. Pt educated re: elevation of left hand due to significant edema. Trialed tubigrip but pt only able to tolerate a few minutes on hand due to pain. Manual decong massage completed to left fingers and hand with good results, AROM x 10 reps to left hand and thumb. A: Significant edema continues in left hand, increased Ind with modified LE dressing techniques.) Occupational Therapy Problem List: Detail (1. Decreased Ind with total body dressing. 2. Decreased Ind with showering/bathing. 3. Decreased knowledge of hip precautions and use of adaptive equipment for modified self cares. 4. Decreased endurance for self cares and functional mobility. 5. Decreased Ind with functional mobility.) Occupational Therapy Goals: 1. Pt will be Ind with modified total body dressing. 2. Pt will be Ind with showering/bathing using modified techniques. 3. Pt will recall total hip precautions and be Ind with self cares using adaptive equipment. 4. Pt will demonstrate improved endurance needed for self cares and functional mobility. 5. Pt will be safe and Ind with mobility needed for self cares and IADLs. Prognosis: Good Occupational Therapy Plan: OT 2-4 times per week to address self cares, functional mobility, endurance and IADLs.
--- NOTE | 2018-11-29 12:06 | Physical Therapy Tx Note ---
Physical Therapy Tx Note - Treatment Note Tolerated: Good Total Time Spent With Patient: 25 Physical Therapy Tx Note: Detail (The patient was in bed when PT arrived. The patient was independent with supine to sit with use of bed rail. The patient required min to moderate PA of 1 with sit to and from stand transfer and transferred to wheelchair with min PA/CG. The patient was taken to Rehab department and ambulated in parallel bars 15 feet x 1 with CG of 1, WBAT on the L LE. The patient ambulated with sidewalker(javier cane) with CG of 1, SBA of 1 a distance of 15 feet x 1. The patient was returned to room and ambulated with javier cane to and from bathroom with CG of one. The patient ambulated with well with occasional unsteadiness.) Physical Therapy Problem List: Detail (1) Assistance with bed mobilty and transfers 2) Impaired ambulation s/p L hip fracture 3) Decreased L LE strength 4 )Decreased ability to complete prolonged physical activity.) Physical Therapy Goals: 1) The patient will be independent with bed mobility. 2 ) The patient will be independent/supervsion with all transfers. 3) The patient will ambulate with appropriate assistive device household distances WBAT on the L LE with supervision for safety. 4) The patient will tolerate 30 minutes of physical activity with one rest period. 5) Increase L LE strength 1/ 3 muscle grade to increase stability gait and increase independence with transfers. Physical Therapy Plan: PT 1-2 times a day M-F for gait training, transfer training, bed mobility, LE strengthening exercises and balance exercises.
--- NOTE | 2018-11-29 15:24 | Physical Therapy Tx Note ---
Physical Therapy Tx Note - Treatment Note Tolerated: Good Total Time Spent With Patient: 15 Physical Therapy Tx Note: Detail (The patient was up in chair when PT arrived. The patient ambulated with javier cane a distance of 30 feet x 1 with CG for safety and occasional verbal cues. The patient requires minimal/moderate PA for sit to and from stand transfer. The patient is progressing well with mobility.) Physical Therapy Problem List: Detail (1) Assistance with bed mobilty and transfers 2) Impaired ambulation s/p L hip fracture 3) Decreased L LE strength 4 )Decreased ability to complete prolonged physical activity.) Physical Therapy Goals: 1) The patient will be independent with bed mobility. 2 ) The patient will be independent/supervsion with all transfers. 3) The patient will ambulate with appropriate assistive device household distances WBAT on the L LE with supervision for safety. 4) The patient will tolerate 30 minutes of physical activity with one rest period. 5) Increase L LE strength 1/ 3 muscle grade to increase stability gait and increase independence with transfers. Physical Therapy Plan: PT 1-2 times a day M-F for gait training, transfer training, bed mobility, LE strengthening exercises and balance exercises.
[2018-11-29] MEDS: EZETIMIBE 10 MG TABLET PO SCH (21:36)
[2018-11-29] MEDS: TRAZODONE 50 MG TABLET PO SCH (21:36)
[2018-11-30] MEDS: PANTOPRAZOLE SODIUM 40 MG TABLET PO SCH (06:04)
[2018-11-30] MEDS: ACETAMINOPHEN 325 MG TAB PO PRN (06:15)
[2018-11-30 06:24] LABS: BASO % 0.5 % (0-6); EOS % 3.1 % (0-6); GRAN % 70.5 % (47-80); HEMATOCRIT 29.6 % (35.0-47.0); HEMOGLOBIN 8.9 gm/dl (11.6-16.0); LYMPH % 18.4 % (16-45); MEAN CELL VOLUME 95.5 fl (81-97); MEAN CORPUSCULAR HEMOGLOBIN 28.7 pg (27-33); MEAN CORPUSCULAR HGB CONC 30.1 g/dl (32-36); MEAN PLATELET VOLUME 9.1 fl (7.4-10.4); MONO % 7.5 % (0-9); PLATELET COUNT 388 K/uL (130-400); RED CELL DISTRIBUTION WIDTH 14.7 % (11.5-14.5); WHITE BLOOD COUNT W/O DIFF 5.9 K/uL (4.2-12.2)
[2018-11-30 06:40] LABS: BLOOD UREA NITROGEN 18 mg/dL (8-23); CREATININE 0.7 mg/dL (0.5-0.9); EST GLOMERULAR FILTRATION RATE > 60 mL/min; GLUCOSE,RANDOM 104 mg/dL (74-109)
--- NOTE | 2018-11-30 08:15 | Occupational Therapy Tx Note ---
Occupational Therapy Tx Note - Treatment Note Tolerated: Good Total Time Spent With Patient: 45 (ADL) Occupational Therapy Treatment Note: Detail (S: Pt resting but ready to get up. Reports she had trouble falling asleep last night. O: Supine to sit Indly with use of bed rail. Pt able to doff soiled shirt with verbal cues for modified technique. Donned bra - able to fasten Ind using left hand as an assist, donned over left UE, right UE with verbal cues and over head with min assist. She was able to position bra with min assist. Pt donned shirt with verbal cues for modified technique and assist to pull down over back. Pt doffed pants with use of compliance advisor and verbal cues for hip precautions and modifications as well as min assist to pull pantleg off left foot. Pt donned clean pants with min physical assist to pull cuff over left foot and to parts puller left hip, mod verbal cues for precautions with use of compliance advisor and min assist for sit to stand from EOB. Pt donned tennis shoes - Ind with right foot and min assist for left foot and total assist to tie shoes. Sit to stand from EOB with min assist and amb several steps with javier walker to wheelchair with min assist. Pt left up in chair with daughter. A: Pt continues to improve Ind with functional mobility and Ind with modified dressing techniques. She fatigues very easily and requires short rest breaks during ADLs.) Occupational Therapy Problem List: Detail (1. Decreased Ind with total body dressing. 2. Decreased Ind with showering/bathing. 3. Decreased knowledge of hip precautions and use of adaptive equipment for modified self cares. 4. Decreased endurance for self cares and functional mobility. 5. Decreased Ind with functional mobility.) Occupational Therapy Goals: 1. Pt will be Ind with modified total body dressing. 2. Pt will be Ind with showering/bathing using modified techniques. 3. Pt will recall total hip precautions and be Ind with self cares using adaptive equipment. 4. Pt will demonstrate improved endurance needed for self cares and functional mobility. 5. Pt will be safe and Ind with mobility needed for self cares and IADLs. Prognosis: Good Occupational Therapy Plan: OT 2-4 times per week to address self cares, functional mobility, endurance and IADLs.
[2018-11-30] MEDS: POLYETHYLENE GLY 17 GM PACKET PO SCH (09:13)
[2018-11-30] MEDS: BENAZEPRIL 20 MG TABLET PO SCH (09:14)
[2018-11-30] MEDS: FERROUS SULFATE 325 MG TAB PO SCH (09:15)
[2018-11-30] MEDS: METOPROLOL TART 25 MG TABLET PO SCH ×2 (09:15→21:40)
[2018-11-30] MEDS: ASCORBIC ACID 500 MG TAB PO SCH (09:16)
[2018-11-30] MEDS: APIXABAN 2.5MG TABLET PO SCH ×2 (09:17→21:39)
[2018-11-30] MEDS: CLOPIDOGREL 75MG TABLET PO SCH (09:17)
[2018-11-30] MEDS: CHOLECALCIFEROL 1,000 UNIT TABLET PO SCH (09:17)
--- NOTE | 2018-11-30 14:47 | Physical Therapy Tx Note ---
Physical Therapy Tx Note - Treatment Note Tolerated: Good Total Time Spent With Patient: 20 Physical Therapy Tx Note: Detail (The patient was in bed sleeping when PT arrived but was easily roused. The patient acheived supine to sit independently with use of railing. The patient ambulated with CG of 1 with javier cane to bathroom 13 feet x 2. The patient completed sit to and from stand from varying surfaces with minimal to moderate PA. The patient ambulated to bed and acheived sit to supine with minimal PA. Patient was tearful after treatment admitting she was depressed and afraid she would have to sell her house. Patient was encouraged that she had progressed well in PT. Patient continues to be more fatigued in the pm. Patient is progressing well with mobility.) Physical Therapy Problem List: Detail (1) Assistance with bed mobilty and transfers 2) Impaired ambulation s/p L hip fracture 3) Decreased L LE strength 4 )Decreased ability to complete prolonged physical activity.) Physical Therapy Goals: 1) The patient will be independent with bed mobility. 2 ) The patient will be independent/supervision with all transfers. 3) The patient will ambulate with appropriate assistive device household distances WBAT on the L LE with supervision for safety. 4) The patient will tolerate 30 minutes of physical activity with one rest period. 5) Increase L LE strength 1/ 3 muscle grade to increase stability gait and increase independence with transfers. Physical Therapy Plan: PT 1-2 times a day M-F for gait training, transfer training, bed mobility, LE strengthening exercises and balance exercises.
[2018-11-30] MEDS: EZETIMIBE 10 MG TABLET PO SCH (21:39)
[2018-11-30] MEDS: TRAZODONE 50 MG TABLET PO SCH (21:40)
[2018-11-30] MEDS: DIPHENHYDRAMINE HCL 25 MG CAPSULE PO PRN (21:41)
[2018-12-01] MEDS: PANTOPRAZOLE SODIUM 40 MG TABLET PO SCH (06:16)
[2018-12-01] MEDS: ASCORBIC ACID 500 MG TAB PO SCH (10:12)
[2018-12-01] MEDS: POLYETHYLENE GLY 17 GM PACKET PO SCH (10:13)
[2018-12-01] MEDS: CHOLECALCIFEROL 1,000 UNIT TABLET PO SCH (10:13)
[2018-12-01] MEDS: METOPROLOL TART 25 MG TABLET PO SCH ×2 (10:13→21:12)
[2018-12-01] MEDS: BENAZEPRIL 20 MG TABLET PO SCH (10:13)
[2018-12-01] MEDS: APIXABAN 2.5MG TABLET PO SCH ×2 (10:13→21:11)
[2018-12-01] MEDS: CLOPIDOGREL 75MG TABLET PO SCH (10:13)
[2018-12-01] MEDS: FERROUS SULFATE 325 MG TAB PO SCH (10:14)
--- NOTE | 2018-12-01 11:44 | Physical Therapy Tx Note ---
Physical Therapy Tx Note - Treatment Note Tolerated: Good Total Time Spent With Patient: 45 Physical Therapy Tx Note: Detail (Patient was sleeping in bed upon HORSE DOCTOR arrival. Patient transferred supine to sit min assist x1. Patient transferred sit to and from stand min assist x1. Patient ambulated 13 feet with hemiwalker CGA x1. Patient transferred sit to and from stand min assist x1. Patient ambulated 7 feet with hemiwalker CGA x1. Patient doffed socks and donned shoes with assist. Patient transferred sit to and from stand min assist x1. Patient ambulated 118 feet with javier walker CGA x1. Patient transferred sit to and from stand x3 min/mod assist x1. Patient doffed shoes and donned socks with assistance. Patient transferred sit to supine mod assist x1. Patient scooted up in bed min assist x1. Patient tolerated treatment well. Patient required several standing rest breaks with ambulation due to fatigue. Patient reports feeling sore and tired after treatment. Patient was left supine in bed with call light within reach.) Physical Therapy Problem List: Detail (1) Assistance with bed mobilty and transfers 2) Impaired ambulation s/p L hip fracture 3) Decreased L LE strength 4 )Decreased ability to complete prolonged physical activity.) Physical Therapy Goals: 1) The patient will be independent with bed mobility. 2 ) The patient will be independent/supervision with all transfers. 3) The patient will ambulate with appropriate assistive device household distances WBAT on the L LE with supervision for safety. 4) The patient will tolerate 30 minutes of physical activity with one rest period. 5) Increase L LE strength 1/ 3 muscle grade to increase stability gait and increase independence with transfers. Prognosis: Good Physical Therapy Plan: PT 1-2 times a day M-F for gait training, transfer training, bed mobility, LE strengthening exercises and balance exercises.
--- NOTE | 2018-12-01 14:27 | Occupational Therapy Tx Note ---
Occupational Therapy Tx Note - Treatment Note Tolerated: Good Total Time Spent With Patient: 60 (ADL) Occupational Therapy Treatment Note: Detail (S: Pt up on commode with nursing. O: Pt able to doff shirt and bra with verbal cues for modified technique, she doffed briefs and pants with core shaper, verbal cues and min assist, doffed slipper socks with max assist. Sit to stand from commode with grab bar and min assist, amb 5 feet to shower with javier walker and CG assist. Pt completed total body showering in sitting with verbal cues for modified LE bathing using core shaper and min assist for sit to stand and min assist for static standing while washing buttocks and maite area. Stand to sit with min assist. Pt able to dry self with cues for modifications and use of core shaper to maintain total hip precautions. Pt amb to EOB with javier walker and CG assist. Pt donned briefs and pants with core shaper, min assist and verbal cues for modifications and hip precautions. Pt donned shirt Indly. Slipper socks donned per OT. Sit to supine with mod assist. Pt left supine in bed. A: Pt continues with significantly impaired endurance, min-mod assist for showering and dressing as well as verbal cues for technique and use of adaptive equipment, min to CG assist for sit to stand and amb, mod assist for sit to supine.) Occupational Therapy Problem List: Detail (1. Decreased Ind with total body dressing. 2. Decreased Ind with showering/bathing. 3. Decreased knowledge of hip precautions and use of adaptive equipment for modified self cares. 4. Decreased endurance for self cares and functional mobility. 5. Decreased Ind with functional mobility.) Occupational Therapy Goals: 1. Pt will be Ind with modified total body dressing. 2. Pt will be Ind with showering/bathing using modified techniques. 3. Pt will recall total hip precautions and be Ind with self cares using adaptive equipment. 4. Pt will demonstrate improved endurance needed for self cares and functional mobility. 5. Pt will be safe and Ind with mobility needed for self cares and IADLs. Prognosis: Good Occupational Therapy Plan: OT 2-4 times per week to address self cares, functional mobility, endurance and IADLs.
[2018-12-01 20:57] LABS: URINE APPEARANCE CLOUDY; URINE BILIRUBIN NEGATIVE (NEGATIVE); URINE BLOOD TRACE-I (NEGATIVE); URINE COLOR YELLOW; URINE GLUCOSE (UA) NEGATIVE (NEGATIVE); URINE KETONE NEGATIVE (NEGATIVE); URINE LEUKOCYTE ESTERASE LARGE (NEGATIVE); URINE NITRITE NEGATIVE (NEGATIVE); URINE UROBILINOGEN 0.2 E.U./dL (0.20 - 1.00)
[2018-12-01 21:05] LABS: URINE BACTERIA 1+; URINE EPITHELIAL CELLS NONE SEEN (FEW); URINE MUCUS HEAVY; URINE RBC 0 - 2 (NONE SEEN)
[2018-12-01] MEDS: DIPHENHYDRAMINE HCL 25 MG CAPSULE PO PRN (21:10)
[2018-12-01] MEDS: TRAZODONE 50 MG TABLET PO SCH (21:11)
[2018-12-01] MEDS: EZETIMIBE 10 MG TABLET PO SCH (21:11)
[2018-12-01] MEDS: TMP/SMZ 160MG/800MG TAB PO SCH (22:02)
[2018-12-02] MEDS: ACETAMINOPHEN 325 MG TAB PO PRN ×2 (03:59→21:12)
[2018-12-02] MEDS: PANTOPRAZOLE SODIUM 40 MG TABLET PO SCH (06:27)
[2018-12-02] MEDS: APIXABAN 2.5MG TABLET PO SCH ×2 (09:34→21:14)
[2018-12-02] MEDS: CLOPIDOGREL 75MG TABLET PO SCH (09:34)
[2018-12-02] MEDS: BENAZEPRIL 20 MG TABLET PO SCH (09:34)
[2018-12-02] MEDS: TMP/SMZ 160MG/800MG TAB PO SCH ×2 (09:34→21:12)
[2018-12-02] MEDS: FERROUS SULFATE 325 MG TAB PO SCH (09:35)
[2018-12-02] MEDS: ASCORBIC ACID 500 MG TAB PO SCH (09:35)
[2018-12-02] MEDS: METOPROLOL TART 25 MG TABLET PO SCH ×2 (09:35→21:11)
[2018-12-02] MEDS: CHOLECALCIFEROL 1,000 UNIT TABLET PO SCH (09:35)
[2018-12-02] MEDS: POLYETHYLENE GLY 17 GM PACKET PO SCH (09:45)
--- NOTE | 2018-12-02 11:43 | Physical Therapy Tx Note ---
Physical Therapy Tx Note - Treatment Note Tolerated: Good Total Time Spent With Patient: 40 Physical Therapy Tx Note: Detail (Pt finishing up in bathroom w/nrsg upon arrival. Sat in chair for changing socks, donning shoes and sling. Sit/stand transfer from recliner w/minimal assist to weight shift forward to come to standing. Ambulated from bedside chair to wheelchair placed outside utility room door (about 45 feet) with javier-walker and contact guard assist. CGA for stand>sit to help with control. Rested briefly, then walked from wheelchair to chapel (about 50 feet), walking on carpet. Returned to wheelchair after brief rest. Requires minimal assist to CGA for sit/stand transfer. Total ambulation was about 145 feet with two rest periods. Transported to room in wheelchair, then assisted to walk into bathroom for toileting, washing hands, walked to bed. Moderate assist for bed mobility, max assist for scooting up in bed. Positioned in bed with bedside table and call light in reach. Nrsg notified.) Physical Therapy Problem List: Detail (1) Assistance with bed mobilty and transfers 2) Impaired ambulation s/p L hip fracture 3) Decreased L LE strength 4 )Decreased ability to complete prolonged physical activity.) Physical Therapy Goals: 1) The patient will be independent with bed mobility. 2 ) The patient will be independent/supervision with all transfers. 3) The patient will ambulate with appropriate assistive device household distances WBAT on the L LE with supervision for safety. 4) The patient will tolerate 30 minutes of physical activity with one rest period. 5) Increase L LE strength 1/ 3 muscle grade to increase stability gait and increase independence with transfers. Prognosis: Good Physical Therapy Plan: PT 1-2 times a day M-F for gait training, transfer training, bed mobility, LE strengthening exercises and balance exercises.
--- NOTE | 2018-12-02 15:06 | Physical Therapy Tx Note ---
Physical Therapy Tx Note - Treatment Note Tolerated: Good Total Time Spent With Patient: 30 Physical Therapy Tx Note: Detail (Pt in bed upon arrival; awake, alert, cooperative for therapy. Independent w/bed mobility; struggled to scoot in sitting from middle of bed to edge of bed, but was successful. Attempted standing w/NBQC; pt was unable to get her balance and became fearful. Returned to sitting at edge of bed, then ambulated w/javier-walker from bedside to wheelchair placed about 50 feet away (near clean utility room), with CGA. CGA for controlled sitting. Pt reports and experiences grinding in R knee w/sit<> stand transition. Rested briefly in sitting and returned to bedside chair. Pt performed 10 reps each of seated marching, knee extension, resisted knee flexion , resisted hip abduction, pillow squeeze for hip adduction, ankle pumps. Positioned with legs elevated; bedside table and call light in reach. Nrsg notified.) Physical Therapy Problem List: Detail (1) Assistance with bed mobilty and transfers 2) Impaired ambulation s/p L hip fracture 3) Decreased L LE strength 4 )Decreased ability to complete prolonged physical activity.) Physical Therapy Goals: 1) The patient will be independent with bed mobility. 2 ) The patient will be independent/supervision with all transfers. 3) The patient will ambulate with appropriate assistive device household distances WBAT on the L LE with supervision for safety. 4) The patient will tolerate 30 minutes of physical activity with one rest period. 5) Increase L LE strength 1/ 3 muscle grade to increase stability gait and increase independence with transfers. Prognosis: Good Physical Therapy Plan: PT 1-2 times a day M-F for gait training, transfer training, bed mobility, LE strengthening exercises and balance exercises.
[2018-12-02] MEDS: DIPHENHYDRAMINE HCL 25 MG CAPSULE PO PRN (21:11)
[2018-12-02] MEDS: TRAZODONE 50 MG TABLET PO SCH (21:13)
[2018-12-02] MEDS: EZETIMIBE 10 MG TABLET PO SCH (21:14)
[2018-12-03] MEDS: ACETAMINOPHEN 325 MG TAB PO PRN ×4 (04:07→19:30)
[2018-12-03 06:45] LABS: BASO % 0.6 % (0-6); EOS % 2.6 % (0-6); GRAN % 72.2 % (47-80); HEMATOCRIT 29.7 % (35.0-47.0); HEMOGLOBIN 8.9 gm/dl (11.6-16.0); LYMPH % 15.3 % (16-45); MEAN PLATELET VOLUME 9.1 fl (7.4-10.4); MONO % 9.3 % (0-9); PLATELET COUNT 432 K/uL (130-400); RED BLOOD COUNT 3.16 M/uL (3.80-5.40); RED CELL DISTRIBUTION WIDTH 14.9 % (11.5-14.5); WHITE BLOOD COUNT W/O DIFF 5.4 K/uL (4.2-12.2)
[2018-12-03] MEDS: PANTOPRAZOLE SODIUM 40 MG TABLET PO SCH (06:48)
[2018-12-03 06:49] LABS: MEAN CORPUSCULAR HEMOGLOBIN 28.1 pg (27-33)
[2018-12-03 07:01] LABS: BLOOD UREA NITROGEN 16 mg/dL (8-23); CREATININE 0.9 mg/dL (0.5-0.9); EST GLOMERULAR FILTRATION RATE > 60 mL/min; GLUCOSE,RANDOM 101 mg/dL (74-109)
--- NOTE | 2018-12-03 08:24 | Occupational Therapy Tx Note ---
Occupational Therapy Tx Note - Treatment Note Tolerated: Good Total Time Spent With Patient: 45 (ADL) Occupational Therapy Treatment Note: Detail (S: Pt up in chair, ready for therapy. O: Sit to stand with javier walker and CG assist. Amb 8 feet to bathroom sink and completed washing face and maite area with SBA, completed oral hygiene with SBA for standing. Pt amb to chair and doffed slipper socks, socks , pants and briefs with sql bi developer and verbal cues as well as CG assist for sit to stand. Pt donned briefs and pants with sql bi developer and min assist, she was able to perform sit to stand with min assist x 2. Pt doffed shirt with verbal cue for technique and don clean shirt with verbal cues for technique. Pt's socks donned per OT, tennis shoes donned Ind with long shoe horn and total assist to tie. Pt able to open and apply lotion to face with verbal cues for one handed technique. A: Pt requires min assist for dressing with exception of socks and tying shoes, CG for standing at sink and ambulatin in room, improved overall endurance and improved Ind level with sit to stand.) Occupational Therapy Problem List: Detail (1. Decreased Ind with total body dressing. 2. Decreased Ind with showering/bathing. 3. Decreased knowledge of hip precautions and use of adaptive equipment for modified self cares. 4. Decreased endurance for self cares and functional mobility. 5. Decreased Ind with functional mobility.) Occupational Therapy Goals: 1. Pt will be Ind with modified total body dressing. 2. Pt will be Ind with showering/bathing using modified techniques. 3. Pt will recall total hip precautions and be Ind with self cares using adaptive equipment. 4. Pt will demonstrate improved endurance needed for self cares and functional mobility. 5. Pt will be safe and Ind with mobility needed for self cares and IADLs. Prognosis: Good Occupational Therapy Plan: OT 2-4 times per week to address self cares, functional mobility, endurance and IADLs.
[2018-12-03] MEDS: BENAZEPRIL 20 MG TABLET PO SCH (09:44)
[2018-12-03] MEDS: APIXABAN 2.5MG TABLET PO SCH ×2 (09:45→22:00)
[2018-12-03] MEDS: CLOPIDOGREL 75MG TABLET PO SCH (09:45)
[2018-12-03] MEDS: ASCORBIC ACID 500 MG TAB PO SCH (09:45)
[2018-12-03] MEDS: FERROUS SULFATE 325 MG TAB PO SCH (09:46)
[2018-12-03] MEDS: CHOLECALCIFEROL 1,000 UNIT TABLET PO SCH (09:46)
[2018-12-03] MEDS: TMP/SMZ 160MG/800MG TAB PO SCH ×2 (09:46→22:00)
[2018-12-03] MEDS: METOPROLOL TART 25 MG TABLET PO SCH ×2 (09:46→22:01)
[2018-12-03] MEDS: POLYETHYLENE GLY 17 GM PACKET PO SCH (09:47)
--- NOTE | 2018-12-03 11:49 | Physical Therapy Tx Note ---
Physical Therapy Tx Note - Treatment Note Tolerated: Good Total Time Spent With Patient: 30 Physical Therapy Tx Note: Detail (The patient was in bathroom when PT arrived. The patient ambulated from bathroom to wheelchair using hemicane. The patient was taken to Rehab department and ambulated on 2 steps with use of railing using proper technique with CG/min PA of 1 for safety. The patient tended to push back slightly into extension when climbing the stairs. The patient then practiced sit to and from stand transfer for elevated mat table. Patient was able to complete sit to stand transfer independently from 22 inch surface. The patient continues to require minimal to moderate assist with sit to stand from lower surfaces. The patient continues to require CG to control descent for stand to sit transfer.) Physical Therapy Problem List: Detail (1) Assistance with bed mobilty and transfers 2) Impaired ambulation s/p L hip fracture 3) Decreased L LE strength 4 )Decreased ability to complete prolonged physical activity.) Physical Therapy Goals: 1) The patient will be independent with bed mobility. 2 ) The patient will be independent/supervision with all transfers. 3) The patient will ambulate with appropriate assistive device household distances WBAT on the L LE with supervision for safety. 4) The patient will tolerate 30 minutes of physical activity with one rest period. 5) Increase L LE strength 1/ 3 muscle grade to increase stability gait and increase independence with transfers. Physical Therapy Plan: PT 1-2 times a day M-F for gait training, transfer training, bed mobility, LE strengthening exercises and balance exercises.
[2018-12-03] MEDS: TRAZODONE 50 MG TABLET PO SCH (22:00)
[2018-12-03] MEDS: EZETIMIBE 10 MG TABLET PO SCH (22:00)
[2018-12-03] MEDS: DIPHENHYDRAMINE HCL 25 MG CAPSULE PO PRN (22:01)
[2018-12-04] MEDS: ACETAMINOPHEN 325 MG TAB PO PRN ×4 (01:04→21:25)
[2018-12-04] MEDS: PANTOPRAZOLE SODIUM 40 MG TABLET PO SCH (06:26)
[2018-12-04] MEDS: POLYETHYLENE GLY 17 GM PACKET PO SCH (09:04)
[2018-12-04] MEDS: BENAZEPRIL 20 MG TABLET PO SCH (09:05)
[2018-12-04] MEDS: ASCORBIC ACID 500 MG TAB PO SCH (09:06)
[2018-12-04] MEDS: TMP/SMZ 160MG/800MG TAB PO SCH ×2 (09:06→21:19)
[2018-12-04] MEDS: APIXABAN 2.5MG TABLET PO SCH ×2 (09:07→21:19)
[2018-12-04] MEDS: FERROUS SULFATE 325 MG TAB PO SCH (09:07)
[2018-12-04] MEDS: CLOPIDOGREL 75MG TABLET PO SCH (09:07)
[2018-12-04] MEDS: METOPROLOL TART 25 MG TABLET PO SCH ×2 (09:07→21:19)
[2018-12-04] MEDS: CHOLECALCIFEROL 1,000 UNIT TABLET PO SCH (09:08)
[2018-12-04] MEDS: DIPHENHYDRAMINE HCL 25 MG CAPSULE PO PRN (21:19)
[2018-12-04] MEDS: EZETIMIBE 10 MG TABLET PO SCH (21:19)
[2018-12-04] MEDS: TRAZODONE 50 MG TABLET PO SCH (21:19)
[2018-12-05] MEDS: ACETAMINOPHEN 325 MG TAB PO PRN ×4 (03:26→21:33)
[2018-12-05] MEDS: PANTOPRAZOLE SODIUM 40 MG TABLET PO SCH (06:46)
[2018-12-05] MEDS: POLYETHYLENE GLY 17 GM PACKET PO SCH (10:00)
[2018-12-05] MEDS: TMP/SMZ 160MG/800MG TAB PO SCH ×2 (10:00→21:28)
[2018-12-05] MEDS: FERROUS SULFATE 325 MG TAB PO SCH (10:01)
[2018-12-05] MEDS: CLOPIDOGREL 75MG TABLET PO SCH (10:01)
[2018-12-05] MEDS: ASCORBIC ACID 500 MG TAB PO SCH (10:01)
[2018-12-05] MEDS: APIXABAN 2.5MG TABLET PO SCH ×2 (10:04→21:32)
[2018-12-05] MEDS: CHOLECALCIFEROL 1,000 UNIT TABLET PO SCH (10:04)
[2018-12-05] MEDS: METOPROLOL TART 25 MG TABLET PO SCH ×2 (10:05→21:32)
[2018-12-05] MEDS: BENAZEPRIL 20 MG TABLET PO SCH (10:05)
[2018-12-05] MEDS: TRAZODONE 50 MG TABLET PO SCH (21:30)
[2018-12-05] MEDS: EZETIMIBE 10 MG TABLET PO SCH (21:32)
[2018-12-05] MEDS: DIPHENHYDRAMINE HCL 25 MG CAPSULE PO PRN (21:35)
[2018-12-06] MEDS: ACETAMINOPHEN 325 MG TAB PO PRN ×2 (01:30→10:28)
[2018-12-06] MEDS: PANTOPRAZOLE SODIUM 40 MG TABLET PO SCH (07:35)
--- NOTE | 2018-12-06 08:18 | Occupational Therapy Tx Note ---
Occupational Therapy Tx Note - Treatment Note Tolerated: Good Total Time Spent With Patient: 35 (ADL) Occupational Therapy Treatment Note: Detail (S: Pt in bathroom with nursing. O : Sit to stand from sink with CG assist and amb 6 feet to chair with javier walker and CG assist. Pt doffed slipper socks with plaster lather Indly, sit to stand from recliner with min assist and doffed pants Indly with plaster lather. Pt donned clean pants with plaster lather and verbal cues. Min assist for sit to stand from recliner. Pt able to static stand with javier walker and CG assist to pull pants over hips. Donned socks with max assist, donned tennis shoes with long shoe horn and assist to tie. A: Pt requires min assist for LE dressing with use of adaptive equipment while maintaining total hip precautions, fatigue continues but is improving, min assist for sit to stand from lower surfaces.) Occupational Therapy Problem List: Detail (1. Decreased Ind with total body dressing. 2. Decreased Ind with showering/bathing. 3. Decreased knowledge of hip precautions and use of adaptive equipment for modified self cares. 4. Decreased endurance for self cares and functional mobility. 5. Decreased Ind with functional mobility.) Occupational Therapy Goals: 1. Pt will be Ind with modified total body dressing. 2. Pt will be Ind with showering/bathing using modified techniques. 3. Pt will recall total hip precautions and be Ind with self cares using adaptive equipment. 4. Pt will demonstrate improved endurance needed for self cares and functional mobility. 5. Pt will be safe and Ind with mobility needed for self cares and IADLs. Prognosis: Good Occupational Therapy Plan: OT 2-4 times per week to address self cares, functional mobility, endurance and IADLs.
[2018-12-06] MEDS: TMP/SMZ 160MG/800MG TAB PO SCH ×2 (10:27→21:23)
[2018-12-06] MEDS: APIXABAN 2.5MG TABLET PO SCH ×2 (10:27→21:23)
[2018-12-06] MEDS: BENAZEPRIL 20 MG TABLET PO SCH (10:28)
[2018-12-06] MEDS: ASCORBIC ACID 500 MG TAB PO SCH (10:28)
[2018-12-06] MEDS: CHOLECALCIFEROL 1,000 UNIT TABLET PO SCH (10:29)
[2018-12-06] MEDS: METOPROLOL TART 25 MG TABLET PO SCH ×2 (10:29→21:23)
[2018-12-06] MEDS: FERROUS SULFATE 325 MG TAB PO SCH (10:29)
[2018-12-06] MEDS: CLOPIDOGREL 75MG TABLET PO SCH (10:29)
[2018-12-06] MEDS: POLYETHYLENE GLY 17 GM PACKET PO SCH (10:30)
--- NOTE | 2018-12-06 11:45 | Physical Therapy Tx Note ---
Physical Therapy Tx Note - Treatment Note Tolerated: Good Total Time Spent With Patient: 30 Physical Therapy Tx Note: Detail (The patient was up in chair when PT arrived. The patient was taken to Rehab department via wheelchair. The patient ambulated 5 feet with CG with SBQC and verbal cues for proper technique. The patient completed sit to and from stand transfers from higher surface with supervision for safety. The patient continues to require moderate assist with sit to stand from lower surfaces. The patient completed the following bilateral LE exercises seated: hip abduction and hamstring curls with red theraband, LAQ, hip adductor squeezes and hip marching all x 10 reps. The patient continues to progress well with increased LE strength.) Physical Therapy Problem List: Detail (1) Assistance with bed mobilty and transfers 2) Impaired ambulation s/p L hip fracture 3) Decreased L LE strength 4 )Decreased ability to complete prolonged physical activity.) Physical Therapy Goals: 1) The patient will be independent with bed mobility. 2 ) The patient will be independent/supervision with all transfers. 3) The patient will ambulate with appropriate assistive device household distances WBAT on the L LE with supervision for safety. 4) The patient will tolerate 30 minutes of physical activity with one rest period. 5) Increase L LE strength 1/ 3 muscle grade to increase stability gait and increase independence with transfers. Physical Therapy Plan: PT 1-2 times a day M-F for gait training, transfer training, bed mobility, LE strengthening exercises and balance exercises.
[2018-12-06] MEDS: DIPHENHYDRAMINE HCL 25 MG CAPSULE PO PRN (21:23)
[2018-12-06] MEDS: EZETIMIBE 10 MG TABLET PO SCH (21:23)
[2018-12-06] MEDS: TRAZODONE 50 MG TABLET PO SCH (21:23)
[2018-12-07] MEDS: PANTOPRAZOLE SODIUM 40 MG TABLET PO SCH (06:24)
[2018-12-07] MEDS: BENAZEPRIL 20 MG TABLET PO SCH (10:43)
[2018-12-07] MEDS: FERROUS SULFATE 325 MG TAB PO SCH (10:44)
[2018-12-07] MEDS: METOPROLOL TART 25 MG TABLET PO SCH ×2 (10:44→22:56)
[2018-12-07] MEDS: APIXABAN 2.5MG TABLET PO SCH ×2 (10:44→22:58)
[2018-12-07] MEDS: TMP/SMZ 160MG/800MG TAB PO SCH ×2 (10:44→22:56)
[2018-12-07] MEDS: ASCORBIC ACID 500 MG TAB PO SCH (10:44)
[2018-12-07] MEDS: CLOPIDOGREL 75MG TABLET PO SCH (10:44)
[2018-12-07] MEDS: CHOLECALCIFEROL 1,000 UNIT TABLET PO SCH (10:44)
[2018-12-07] MEDS: POLYETHYLENE GLY 17 GM PACKET PO SCH (10:45)
--- NOTE | 2018-12-07 11:54 | Physical Therapy Tx Note ---
Physical Therapy Tx Note - Treatment Note Tolerated: Fair Total Time Spent With Patient: 50 Physical Therapy Tx Note: Detail (The patient was up in chair when PT arrived and reports she doesn't feel well. The patient complained of R hip, quad region aching pain. Nursing staff reported that patient was requiring more assistance with transfers. The patient required moderate PA with sit to stand from lower surface. The patient was taken to Rehab department. The patient acheived sit to stand from higher surface x 3 independently with verbal cues for technique. PT completed PROM of L shoulder. The patient completed the following LE exercises: hip abduction with red T- band x 6 reps, hip adductor squeezes, hamstring curls with red T-band, hip marching, heel/toe raises all x 10 to 15 reps. The patient was fatigued after exercises. The patient was then returned to room and required moderate PA of 1 for sit to stand from wheelchair and ambulated to chair with CG due to occasional unsteadiness. The patient required frequent verbal cues today for proper technique. Will monitor patient's status.) Physical Therapy Problem List: Detail (1) Assistance with bed mobilty and transfers 2) Impaired ambulation s/p L hip fracture 3) Decreased L LE strength 4 )Decreased ability to complete prolonged physical activity.) Physical Therapy Goals: 1) The patient will be independent with bed mobility. 2 ) The patient will be independent/supervision with all transfers. 3) The patient will ambulate with appropriate assistive device household distances WBAT on the L LE with supervision for safety. 4) The patient will tolerate 30 minutes of physical activity with one rest period. 5) Increase L LE strength 1/ 3 muscle grade to increase stability gait and increase independence with transfers. Physical Therapy Plan: PT 1-2 times a day M-F for gait training, transfer training, bed mobility, LE strengthening exercises and balance exercises.
[2018-12-07] MEDS: ACETAMINOPHEN 325 MG TAB PO PRN ×2 (15:47→21:30)
[2018-12-07 16:41] LABS: BASO % 0.5 % (0-6); EOS % 0.2 % (0-6); GRAN % 77.1 % (47-80); HEMATOCRIT 29.9 % (35.0-47.0); HEMOGLOBIN 9.3 gm/dl (11.6-16.0); LYMPH % 14.8 % (16-45); MEAN CELL VOLUME 92.3 fl (81-97); MEAN CORPUSCULAR HEMOGLOBIN 28.7 pg (27-33); MEAN CORPUSCULAR HGB CONC 31.1 g/dl (32-36); MEAN PLATELET VOLUME 8.6 fl (7.4-10.4); MONO % 7.4 % (0-9); PLATELET COUNT 346 K/uL (130-400); RED BLOOD COUNT 3.24 M/uL (3.80-5.40); RED CELL DISTRIBUTION WIDTH 15.1 % (11.5-14.5); WHITE BLOOD COUNT W/O DIFF 5.9 K/uL (4.2-12.2)
[2018-12-07] MEDS: DIPHENHYDRAMINE HCL 25 MG CAPSULE PO PRN (22:56)
[2018-12-07] MEDS: TRAZODONE 50 MG TABLET PO SCH (22:56)
[2018-12-07] MEDS: EZETIMIBE 10 MG TABLET PO SCH (22:56)
[2018-12-08] MEDS: PANTOPRAZOLE SODIUM 40 MG TABLET PO SCH (06:47)
[2018-12-08] MEDS: ACETAMINOPHEN 325 MG TAB PO PRN (06:50)
[2018-12-08 09:54] LABS: HEMOGLOBIN 9.6 gm/dl (11.6-16.0); MEAN CELL VOLUME 93.1 fl (81-97); MEAN CORPUSCULAR HEMOGLOBIN 28.8 pg (27-33); MEAN PLATELET VOLUME 9.1 fl (7.4-10.4); PLATELET COUNT 301 K/uL (130-400); RED BLOOD COUNT 3.33 M/uL (3.80-5.40); RED CELL DISTRIBUTION WIDTH 15.1 % (11.5-14.5); WHITE BLOOD COUNT W/O DIFF 5.9 K/uL (4.2-12.2)
[2018-12-08] MEDS: TMP/SMZ 160MG/800MG TAB PO SCH ×2 (10:39→21:55)
[2018-12-08] MEDS: BENAZEPRIL 20 MG TABLET PO SCH (10:39)
[2018-12-08] MEDS: APIXABAN 2.5MG TABLET PO SCH ×2 (10:39→21:55)
[2018-12-08] MEDS: CHOLECALCIFEROL 1,000 UNIT TABLET PO SCH (10:39)
[2018-12-08] MEDS: METOPROLOL TART 25 MG TABLET PO SCH ×2 (10:40→21:56)
[2018-12-08] MEDS: CLOPIDOGREL 75MG TABLET PO SCH (10:40)
[2018-12-08] MEDS: ASCORBIC ACID 500 MG TAB PO SCH (10:40)
[2018-12-08] MEDS: FERROUS SULFATE 325 MG TAB PO SCH (10:40)
[2018-12-08] MEDS: POLYETHYLENE GLY 17 GM PACKET PO SCH (10:41)
[2018-12-08 11:14] LABS: BLOOD UREA NITROGEN 15 mg/dL (8-23); CREATININE 0.9 mg/dL (0.5-0.9); EST GLOMERULAR FILTRATION RATE > 60 mL/min
[2018-12-08 11:17] LABS: GLUCOSE,RANDOM 182 mg/dL (74-109)
--- NOTE | 2018-12-08 11:35 | Physical Therapy Tx Note ---
Physical Therapy Tx Note - Treatment Note Tolerated: Fair Total Time Spent With Patient: 10 Physical Therapy Tx Note: Detail (Patient was seated in chair upon BREADMAN arrival. Nursing notified BREADMAN that they had to change pts arm dressing in 10 minutes to have pt ready for Doctor. Patient doffed socks, and donned shoes with assistance. Patient transferred sit to and from stand mod assist x1. Patient ambulated 22 feet with hemiwalker CGA x1. Patient was fatigued with ambulation. Patient was left seated in chair with acute care nursing assistant in the room.) Physical Therapy Problem List: Detail (1) Assistance with bed mobilty and transfers 2) Impaired ambulation s/p L hip fracture 3) Decreased L LE strength 4 )Decreased ability to complete prolonged physical activity.) Physical Therapy Goals: 1) The patient will be independent with bed mobility. 2 ) The patient will be independent/supervision with all transfers. 3) The patient will ambulate with appropriate assistive device household distances WBAT on the L LE with supervision for safety. 4) The patient will tolerate 30 minutes of physical activity with one rest period. 5) Increase L LE strength 1/ 3 muscle grade to increase stability gait and increase independence with transfers. Prognosis: Good Physical Therapy Plan: PT 1-2 times a day M-F for gait training, transfer training, bed mobility, LE strengthening exercises and balance exercises.
[2018-12-08 12:28] LABS: URINE APPEARANCE CLEAR; URINE BILIRUBIN NEGATIVE (NEGATIVE); URINE BLOOD NEGATIVE (NEGATIVE); URINE COLOR YELLOW; URINE GLUCOSE (UA) NEGATIVE (NEGATIVE); URINE KETONE TRACE (NEGATIVE); URINE LEUKOCYTE ESTERASE SMALL (NEGATIVE); URINE NITRITE NEGATIVE (NEGATIVE); URINE PROTEIN NEGATIVE (NEGATIVE); URINE UROBILINOGEN 0.2 E.U./dL (0.20 - 1.00)
[2018-12-08 13:10] LABS: URINE BACTERIA NONE SEEN; URINE MUCUS LIGHT; URINE RBC 0 - 2 (NONE SEEN)
[2018-12-08 13:11] LABS: URINE CALCIUM OXALATE CRYSTALS 2+ /hpf
--- NOTE | 2018-12-08 14:37 | Physical Therapy Tx Note ---
Physical Therapy Tx Note - Treatment Note Physical Therapy Tx Note: Detail (Patient not seen this pm due to fever.) Physical Therapy Problem List: Detail (1) Assistance with bed mobilty and transfers 2) Impaired ambulation s/p L hip fracture 3) Decreased L LE strength 4 )Decreased ability to complete prolonged physical activity.) Physical Therapy Goals: 1) The patient will be independent with bed mobility. 2 ) The patient will be independent/supervision with all transfers. 3) The patient will ambulate with appropriate assistive device household distances WBAT on the L LE with supervision for safety. 4) The patient will tolerate 30 minutes of physical activity with one rest period. 5) Increase L LE strength 1/ 3 muscle grade to increase stability gait and increase independence with transfers. Physical Therapy Plan: PT 1-2 times a day M-F for gait training, transfer training, bed mobility, LE strengthening exercises and balance exercises.
[2018-12-08] MEDS: DIPHENHYDRAMINE HCL 25 MG CAPSULE PO PRN (21:55)
[2018-12-08] MEDS: TRAZODONE 50 MG TABLET PO SCH (21:56)
[2018-12-08] MEDS: EZETIMIBE 10 MG TABLET PO SCH (21:56)
[2018-12-09] MEDS: PANTOPRAZOLE SODIUM 40 MG TABLET PO SCH (06:24)
[2018-12-09] MEDS: POLYETHYLENE GLY 17 GM PACKET PO SCH (09:12)
[2018-12-09] MEDS: CLOPIDOGREL 75MG TABLET PO SCH (10:46)
[2018-12-09] MEDS: METOPROLOL TART 25 MG TABLET PO SCH ×2 (10:47→22:06)
[2018-12-09] MEDS: TMP/SMZ 160MG/800MG TAB PO SCH ×2 (10:47→22:05)
[2018-12-09] MEDS: FERROUS SULFATE 325 MG TAB PO SCH (10:47)
[2018-12-09] MEDS: APIXABAN 2.5MG TABLET PO SCH ×2 (10:47→22:06)
[2018-12-09] MEDS: BENAZEPRIL 20 MG TABLET PO SCH (10:48)
[2018-12-09] MEDS: ASCORBIC ACID 500 MG TAB PO SCH (10:48)
[2018-12-09] MEDS: CHOLECALCIFEROL 1,000 UNIT TABLET PO SCH (10:48)
--- NOTE | 2018-12-09 12:13 | Physician Progress Note ---
Subjective - Date Date of Progress Note: 12/09/18 - Admitting Diagnosis Diagnosis: mult. rehab services due to fall from standing - Subjective Nursing Care Plan Problem List Activity Intolerance (Swing Bed) Start: 11/23/18 16: 51 Freq: Status: Active Protocol: Created 11/23/18 16:51 SS (Rec: 11/23/18 16:51 SS [id number]) Altered Thought Process (Fall Risk) Start: 11/23/18 16: 46 Freq: Status: Active Protocol: Created 11/23/18 16:46 SS (Rec: 11/23/18 16:46 SS [id number]) Impaired Mobility (Fall Risk) Start: 11/23/18 16: 46 Freq: Status: Active Protocol: Created 11/23/18 16:46 SS (Rec: 11/23/18 16:46 SS [id number]) Knowledge Deficit (Swing Bed) Start: 11/23/18 16: 51 Freq: Status: Active Protocol: Created 11/23/18 16:51 SS (Rec: 11/23/18 16:51 SS [id number]) Pain (Swing Bed) Start: 11/23/18 16: 51 Freq: Status: Active Protocol: Created 11/23/18 16:51 SS (Rec: 11/23/18 16:51 SS [id number]) Risk for Injury (Fall Risk) Start: 11/23/18 16: 46 Freq: Status: Active Protocol: Created 11/23/18 16:46 SS (Rec: 11/23/18 16:46 SS [id number]) Subjective: 12/09/18: Pt sitting up in chair, preparing to eat lunch. C/o severe pain to LUE, which is wrapped in a splint with clay wrap and elevated on a pillow. Staff reports that pt will be going to two Orthopedic doctor appointment visits today and pt hopes to have LUE splint taken off. Pt and staff report that she has been having explosive diarrhea d/t constant Miralax use. Would like to have it stopped or changed to PRN. Family reports that she has colitis and would like to have Metamucil ordered. Staff also reports intermittent confusion over past few days that is worse in the evening. General - Cognitive Patterns Speech: Normal Thought Process: Intact Thought Content: Normal - Communication Select best description of speech pattern: Clear Speech Ability to express ideas and wants: Understood Understanding verbal content: Understands - Mood and Behavior Patterns Appearance: Well Groomed Mood: Depressed Mood Comment: occasionally tearful, but appropriate Attitude: Cooperative Motor Activity: Calm Affect: Sad, Anxious Affect Comment: appropriate for conversation Hallucinations: Denies - Physical Functioning Activity Level: Up with assist x1 Turning: With partial assist ROM Ability: Moves all extremities Assistive Devices: 2 Wheel Walker Activity Level Comment: more unsteady today. Ambulation Ability: Needs Assist Bed Mobility: Needs Assist Transfer Ability: Needs Assist Bathing Ability: Needs Assist Personal Hygiene: Needs Assist Dressing Ability: Needs Assist Eating (Feeding) Ability: Needs Assist Toileting Ability: Needs Assist Administer Own Medication: Independent Care Ability Comment: Needs to have things set up for her on her tray. - Continence Bowel Pattern: Normal for Patient Bladder Pattern: Normal, Frequency Meds/Allergies - Allergies Allergies Allergy/AdvReac Type Severity Reaction Status Date / Time Penicillins Allergy HIVES Verified 09/20/17 09:17 - Active Medications Current Medications Acetaminophen (Tylenol 500mg Tab) 1,000 mg PO TID [facility] Apixaban (Eliquis) 2.5 mg PO BID [facility] Last Admin: 12/09/18 10:47 Dose: 2.5 mg Ascorbic Acid (Vitamin C) 1,000 mg PO DAILY [facility] Last Admin: 12/09/18 10:48 Dose: 1,000 mg Benazepril HCl (Lotensin) 40 mg PO DAILY [facility] Last Admin: 12/09/18 10:48 Dose: 40 mg Clopidogrel Bisulfate (Plavix) 75 mg PO DAILY [facility] Last Admin: 12/09/18 10:46 Dose: 75 mg Diphenhydramine HCl (Benadryl Capsule) 25 mg PO Q6H PRN PRN Reason: insomnia Last Admin: 12/08/18 21:55 Dose: 25 mg Ezetimibe (Zetia) 10 mg PO QHS [facility] Last Admin: 12/08/18 21:56 Dose: 10 mg Ferrous Sulfate (Iron) 325 mg PO DAILY [facility] Last Admin: 12/09/18 10:47 Dose: 325 mg Metoprolol Tartrate (Lopressor) 25 mg PO BID [facility] Last Admin: 12/09/18 10:47 Dose: 25 mg [facility]opraz[facility] Last Admin: 12/09/18 06:24 Dose: 40 mg Polyethylene Glycol (Miralax) 17 gm PO DAILY [facility] Last Admin: 12/09/18 09:12 Dose: Not Given Trazodone HCl (Desyrel) 25 mg PO QHS [facility] Last Admin: 12/08/18 21:56 Dose: 25 mg Trimethoprim/Sulfamethoxazole (Bactrim Ds) 1 each PO BID [facility] Stop: 12/11/18 10:01 Last Admin: 12/09/18 10:47 Dose: 1 each Vitamin D (Vitamin D3) 2,000 unit PO DAILY [facility] Last Admin: 12/09/18 10:48 Dose: 2,000 unit Objective - Vital Signs Vital Signs: Vital Signs - Last 24 Hrs Temp Pulse Resp BP BP Pulse Ox 12/09/18 10:53 98.2 F 116/62 12/09/18 08:00 97.9 F 98 H 17 139/56 96 12/08/18 20:00 98.2 F 58 L 16 116/62 96 12/08/18 13:45 98.8 F 80 18 119/61 96 - General General Appearance: Alert, Mild distress (d/t LUE discomfort) - Respiratory Respiratory exam: negative: Accessory muscle use, Respiratory distress - Extremities Extremities exam: Normal inspection, Normal capillary refill - Psychiatric Psychiatric exam: Depressed H&P Results - Labs Result Diagrams: 12/08/18 09:46 12/08/18 09:46 Labs Last 24 Hours: Laboratory Results - last 24 hr 12/08/18 Unknown Urine Color Yellow Urine Appearance Clear Urine pH 6.0 Ur Specific [place] 1.025 Urine Protein Negative Urine Glucose (UA) Negative Urine Ketones Trace H Urine Blood Negative Urine Nitrite Negative Urine Bilirubin Negative Urine Urobilinogen 0.2 Ur Leukocyte Esterase Small H Urine RBC 0 - 2 Urine WBC 6 - 10 Ur Epithelial Cells 7 - 10 Calcium Oxalate Crystal 2+ Urine Bacteria None seen Urine Mucus Light Discharge Potential - Discharge Needs Community Services Used Prior to Admission: None Patient Discharge Plan Description: Return Home Community Services Needed at Discharge: Physical Therapy Discharge Needs Comment: Interested [employer] wheels ad home PT for discharge Plan - Swing Bed Certification Initial Certification Due: 11/27/18 14 Day Re-Cert Due: 12/11/18 44 Day Re-Cert Due: 01/10/19 74 Day Re-Cert Due: 02/09/19 - Detailed Diagnosis and Plan (1) Status post fracture of hip Current Visit: Yes Status: Acute Base Code: Z87.81 - PERSONAL HISTORY OF ( HEALED) TRAUMATIC FRACTURE Comment: 12/09/18: -F/u appointment with orthopedist today -Scheduled Tylenol 1000mg PO TID -Requested that RN ask Orthopedist if pt can have PRN Naproxen (2) History of humerus fracture Current Visit: Yes Status: Acute Base Code: Z87.81 - PERSONAL HISTORY OF ( HEALED) TRAUMATIC FRACTURE Comment: 12/09/18: -F/u appointment with Orthopedist today, hoping to have splint/wrap taken off -C/o pain in LUE -Scheduled Tylenol 1000mg TID (3) Physical deconditioning Current Visit: Yes Status: Acute Base Code: R53.81 - OTHER MALAISE Comment : 12/09/18: -Continue with PT/OT (4) Frequent loose stools Current Visit: Yes Status: Acute Base Code: R19.7 - DIARRHEA, UNSPECIFIED Comment: 12/09/18: -Miralax changed from scheduled to PRN d/t frequent loose stool -PRN Metamucil ordered per pt/family request (5) Full code status Current Visit: Yes Status: Acute Base Code: Z78.9 - OTHER SPECIFIED HEALTH STATUS Comment: 12/09/18: -Full code this admission
[2018-12-09] MEDS: ACETAMINOPHEN 500 MG TABLET PO SCH ×3 (12:14→22:06)
[2018-12-09] MEDS ORDERED: POLYETHYLENE GLY 17 GM PACKET PO PRN (13:36)
[2018-12-09] MEDS: TRAZODONE 50 MG TABLET PO SCH (22:05)
[2018-12-09] MEDS: EZETIMIBE 10 MG TABLET PO SCH (22:06)
[2018-12-10] MEDS: PANTOPRAZOLE SODIUM 40 MG TABLET PO SCH (06:23)
[2018-12-10] MEDS: ACETAMINOPHEN 500 MG TABLET PO SCH ×4 (07:44→22:57)
[2018-12-10] MEDS: TMP/SMZ 160MG/800MG TAB PO SCH (09:32)
[2018-12-10] MEDS: BENAZEPRIL 20 MG TABLET PO SCH (09:33)
[2018-12-10] MEDS: CLOPIDOGREL 75MG TABLET PO SCH (09:33)
[2018-12-10] MEDS: CHOLECALCIFEROL 1,000 UNIT TABLET PO SCH (09:35)
[2018-12-10] MEDS: ASCORBIC ACID 500 MG TAB PO SCH (09:35)
[2018-12-10] MEDS: APIXABAN 2.5MG TABLET PO SCH ×2 (09:35→22:57)
[2018-12-10] MEDS: FERROUS SULFATE 325 MG TAB PO SCH (09:36)
[2018-12-10] MEDS: METOPROLOL TART 25 MG TABLET PO SCH ×2 (09:36→22:57)
--- NOTE | 2018-12-10 11:05 | Occupational Therapy Tx Note ---
Occupational Therapy Tx Note - Treatment Note Tolerated: Good Total Time Spent With Patient: 35 (ther ex) Occupational Therapy Treatment Note: Detail (S: Pt up in chair, feeling very tired. O: Per updated order pt is now able to begin AROM and PROM to left UE. Pt educated and able to complete 10 reps of left AROM as follows: shoulder flexion, elbow flexion/extension, wrist flexion/extension and finger flexion/ extension. Pt able to complete 10 reps of gentle ball squeezes on left hand. Gentle PROM to left wrist x 10 reps. Reviewed continued precautions with focus on non-weight bearing on left UE, pt verbalizes understanding. A: Pt will require cont. education for left UE ROM) Occupational Therapy Problem List: Detail (1. Decreased Ind with total body dressing. 2. Decreased Ind with showering/bathing. 3. Decreased knowledge of hip precautions and use of adaptive equipment for modified self cares. 4. Decreased endurance for self cares and functional mobility. 5. Decreased Ind with functional mobility.) Occupational Therapy Goals: 1. Pt will be Ind with modified total body dressing. 2. Pt will be Ind with showering/bathing using modified techniques. 3. Pt will recall total hip precautions and be Ind with self cares using adaptive equipment. 4. Pt will demonstrate improved endurance needed for self cares and functional mobility. 5. Pt will be safe and Ind with mobility needed for self cares and IADLs. Prognosis: Good Occupational Therapy Plan: OT 2-4 times per week to address self cares, functional mobility, endurance and IADLs.
--- NOTE | 2018-12-10 14:36 | Physical Therapy Tx Note ---
Physical Therapy Tx Note - Treatment Note Tolerated: Good Total Time Spent With Patient: 35 Physical Therapy Tx Note: Detail (The patient was up in chair when PT arrived. The patient ambulated to chair with jean-claude walker and CG for safety (5 feet). The patient was taken to Rehab dept. Sit to and from stand from varying surfaces x5. The patient was able to complete sit to stand form 20 inches, but not 19 inches. The patient completed LE exercises seated: Red T -band hip abduction, hip adductor squeezes, LAQ, resistive red T-band hamstring curls, ankle pumps and hip marching. The patient ambulated with Jean-Claude Walker a distance of 50 feet x 1 with CG of 1. Improved tolerance today to PT today. Patient requiring less assistance with mobility and less fatigued.) Physical Therapy Problem List: Detail (1) Assistance with bed mobilty and transfers 2) Impaired ambulation s/p L hip fracture 3) Decreased L LE strength 4 )Decreased ability to complete prolonged physical activity.) Physical Therapy Goals: 1) The patient will be independent with bed mobility. 2 ) The patient will be independent/supervision with all transfers. 3) The patient will ambulate with appropriate assistive device household distances WBAT on the L LE with supervision for safety. 4) The patient will tolerate 30 minutes of physical activity with one rest period. 5) Increase L LE strength 1/ 3 muscle grade to increase stability gait and increase independence with transfers. Physical Therapy Plan: PT 1-2 times a day M-F for gait training, transfer training, bed mobility, LE strengthening exercises and balance exercises.
[2018-12-10] MEDS: EZETIMIBE 10 MG TABLET PO SCH (22:57)
[2018-12-10] MEDS: TRAZODONE 50 MG TABLET PO SCH (22:57)
[2018-12-11] MEDS: PANTOPRAZOLE SODIUM 40 MG TABLET PO SCH (08:12)
[2018-12-11] MEDS: BENAZEPRIL 20 MG TABLET PO SCH (09:20)
[2018-12-11] MEDS: APIXABAN 2.5MG TABLET PO SCH ×2 (09:21→21:29)
[2018-12-11] MEDS: ASCORBIC ACID 500 MG TAB PO SCH (09:21)
[2018-12-11] MEDS: FERROUS SULFATE 325 MG TAB PO SCH (09:21)
[2018-12-11] MEDS: METOPROLOL TART 25 MG TABLET PO SCH ×2 (09:22→21:29)
[2018-12-11] MEDS: CHOLECALCIFEROL 1,000 UNIT TABLET PO SCH (09:22)
[2018-12-11] MEDS: ACETAMINOPHEN 500 MG TABLET PO SCH ×3 (09:22→21:26)
[2018-12-11] MEDS: CLOPIDOGREL 75MG TABLET PO SCH (09:23)
[2018-12-11] MEDS: PSYLLIUM HUSK/ASPARTAME 3.4 GM POWD.PACK PO PRN (15:07)
[2018-12-11] MEDS: TRAZODONE 50 MG TABLET PO SCH (21:27)
[2018-12-11] MEDS: EZETIMIBE 10 MG TABLET PO SCH (21:29)
[2018-12-12] MEDS: PANTOPRAZOLE SODIUM 40 MG TABLET PO SCH (07:15)
[2018-12-12] MEDS: ACETAMINOPHEN 500 MG TABLET PO SCH ×3 (09:14→21:38)
[2018-12-12] MEDS: CLOPIDOGREL 75MG TABLET PO SCH (09:14)
[2018-12-12] MEDS: FERROUS SULFATE 325 MG TAB PO SCH (09:14)
[2018-12-12] MEDS: APIXABAN 2.5MG TABLET PO SCH ×2 (09:14→21:38)
[2018-12-12] MEDS: BENAZEPRIL 20 MG TABLET PO SCH (09:15)
[2018-12-12] MEDS: CHOLECALCIFEROL 1,000 UNIT TABLET PO SCH (09:15)
[2018-12-12] MEDS: METOPROLOL TART 25 MG TABLET PO SCH ×2 (09:16→21:38)
[2018-12-12] MEDS: ASCORBIC ACID 500 MG TAB PO SCH (09:16)
[2018-12-12] MEDS: TRAZODONE 50 MG TABLET PO SCH (21:36)
[2018-12-12] MEDS: EZETIMIBE 10 MG TABLET PO SCH (21:38)
[2018-12-13] MEDS: PANTOPRAZOLE SODIUM 40 MG TABLET PO SCH (06:25)
[2018-12-13] MEDS: CLOPIDOGREL 75MG TABLET PO SCH (10:06)
[2018-12-13] MEDS: ACETAMINOPHEN 500 MG TABLET PO SCH ×3 (10:06→22:29)
[2018-12-13] MEDS: CHOLECALCIFEROL 1,000 UNIT TABLET PO SCH (10:07)
[2018-12-13] MEDS: FERROUS SULFATE 325 MG TAB PO SCH (10:07)
[2018-12-13] MEDS: METOPROLOL TART 25 MG TABLET PO SCH ×2 (10:08→22:29)
[2018-12-13] MEDS: APIXABAN 2.5MG TABLET PO SCH ×2 (10:08→22:29)
[2018-12-13] MEDS: BENAZEPRIL 20 MG TABLET PO SCH (10:09)
[2018-12-13] MEDS: ASCORBIC ACID 500 MG TAB PO SCH (10:09)
--- NOTE | 2018-12-13 12:00 | Occupational Therapy Tx Note ---
Occupational Therapy Tx Note - Treatment Note Tolerated: Good Total Time Spent With Patient: 40 (ther ex) Occupational Therapy Treatment Note: Detail (S: Pt up in chair, in good spirits. O: Pt transported to rehab gym via wheelchair. Left UE AROM exercises performed with use of shoulder arc to promote left shoulder flexion and elbow extension, pt able to perform 20 reps x 2 sets of shoulder arc with short rest breaks due to arm fatigue. Pt completed 15 reps of active left elbow flexion with dowel tree and rings with therapist positioning rings to improve elbow flexion. Gentle passive ROM to left elbow flexion and extension x 2 reps each with sustained hold at end range. Pt transported back to room via nursing. A: Active elbow extension initially -30 degrees, passively at end of treatment -20 degrees, active elbow flexion 90 degrees initially, passively at end of treatment 100 degrees.) Occupational Therapy Problem List: Detail (1. Decreased Ind with total body dressing. 2. Decreased Ind with showering/bathing. 3. Decreased knowledge of hip precautions and use of adaptive equipment for modified self cares. 4. Decreased endurance for self cares and functional mobility. 5. Decreased Ind with functional mobility.) Occupational Therapy Goals: 1. Pt will be Ind with modified total body dressing. 2. Pt will be Ind with showering/bathing using modified techniques. 3. Pt will recall total hip precautions and be Ind with self cares using adaptive equipment. 4. Pt will demonstrate improved endurance needed for self cares and functional mobility. 5. Pt will be safe and Ind with mobility needed for self cares and IADLs. Prognosis: Good Occupational Therapy Plan: OT 2-4 times per week to address self cares, functional mobility, endurance and IADLs.
--- NOTE | 2018-12-13 14:43 | Physical Therapy Tx Note ---
Physical Therapy Tx Note - Treatment Note Tolerated: Good Total Time Spent With Patient: 25 Physical Therapy Tx Note: Detail (The patient was seated on the edge of bed with her daughter when PT arrived. The patient was independent with sit to stand from high surface. The patient ambulated with SBQC 20 feet x 1 with CG and verbal cues WBAT on the L LE, then standard cane 50 feet x 1 with supervision for safety. The patient completed the following LE strenghtening exercises seated: red T-band hip abduction and hamstring curls both x 10 reps, LAQ, hip adductor squeezes and marching L LE x 15 reps. The patient progressed well with ambulation. The patient's daughter is to bring in her standard cane.) Physical Therapy Problem List: Detail (1) Assistance with bed mobilty and transfers 2) Impaired ambulation s/p L hip fracture 3) Decreased L LE strength 4 )Decreased ability to complete prolonged physical activity.) Physical Therapy Goals: 1) The patient will be independent with bed mobility. 2 ) The patient will be independent/supervision with all transfers. 3) The patient will ambulate with appropriate assistive device household distances WBAT on the L LE with supervision for safety. 4) The patient will tolerate 30 minutes of physical activity with one rest period. 5) Increase L LE strength 1/ 3 muscle grade to increase stability gait and increase independence with transfers. Physical Therapy Plan: PT 1-2 times a day M-F for gait training, transfer training, bed mobility, LE strengthening exercises and balance exercises.
[2018-12-13] MEDS: TRAZODONE 50 MG TABLET PO SCH (22:27)
[2018-12-13] MEDS: EZETIMIBE 10 MG TABLET PO SCH (22:29)
[2018-12-14] MEDS: PANTOPRAZOLE SODIUM 40 MG TABLET PO SCH (06:07)
[2018-12-14] MEDS: FERROUS SULFATE 325 MG TAB PO SCH (09:26)
[2018-12-14] MEDS: APIXABAN 2.5MG TABLET PO SCH ×2 (09:26→22:38)
[2018-12-14] MEDS: ASCORBIC ACID 500 MG TAB PO SCH (09:27)
[2018-12-14] MEDS: CHOLECALCIFEROL 1,000 UNIT TABLET PO SCH (09:28)
[2018-12-14] MEDS: CLOPIDOGREL 75MG TABLET PO SCH (09:28)
[2018-12-14] MEDS: BENAZEPRIL 20 MG TABLET PO SCH (09:28)
[2018-12-14] MEDS: METOPROLOL TART 25 MG TABLET PO SCH ×2 (09:29→22:38)
[2018-12-14] MEDS: ACETAMINOPHEN 500 MG TABLET PO SCH ×3 (09:29→22:36)
--- NOTE | 2018-12-14 10:50 | Occupational Therapy Tx Note ---
Occupational Therapy Tx Note - Treatment Note Tolerated: Good Total Time Spent With Patient: 60 (ADL) Occupational Therapy Treatment Note: Detail (S: Pt up in chair, ready for shower. O: Pt doffed shirt with verbal cues for technique, doffed slipper socks and pants with chief i dispatcher and verbal cues for technique with moderate difficulty with slipper socks. Pt sit to stand with min assist and amb to shower with straight cane and CG assist. Pt completed showering with set up and use of chief i dispatcher as well as CG assist for sit to stand using grab bar and CG assist for standing and turning in shower. Pt dried self Indly and amb to chair with cane and CG assist. Pt donned shirt Indly. She donned underwear and pants with chief i dispatcher and min assist for sit to stand from chair height. Pt donned socks with sock aid and min assist after education re: technique while maintaining total hip precautions. Tennis shoes donned per OT as pt was fatigued. A: Min assist for sit to stand when fatigued, min assist for LE dressing with use of adaptive equipment, CG assist for showering while standing. ) Occupational Therapy Problem List: Detail (1. Decreased Ind with total body dressing. 2. Decreased Ind with showering/bathing. 3. Decreased knowledge of hip precautions and use of adaptive equipment for modified self cares. 4. Decreased endurance for self cares and functional mobility. 5. Decreased Ind with functional mobility.) Occupational Therapy Goals: 1. Pt will be Ind with modified total body dressing. 2. Pt will be Ind with showering/bathing using modified techniques. 3. Pt will recall total hip precautions and be Ind with self cares using adaptive equipment. 4. Pt will demonstrate improved endurance needed for self cares and functional mobility. 5. Pt will be safe and Ind with mobility needed for self cares and IADLs. Prognosis: Good Occupational Therapy Plan: OT 2-4 times per week to address self cares, functional mobility, endurance and IADLs.
--- NOTE | 2018-12-14 13:54 | Physical Therapy Tx Note ---
Physical Therapy Tx Note - Treatment Note Tolerated: Good Total Time Spent With Patient: 30 Physical Therapy Tx Note: Detail (The patient was up in chair when PT arrived. The patient ambulated with her own standard cane and cane with wider base. Patient was steadier with std. cane only requiring supervision for safety. The patient ambulated on 3 steps with use of one railing using proper technique with supervision for safety. The patient required verbal cues to not use L UE with stair climbing. The patient continues to require min/mod PA with sit to stand from lower surfaces and was independent from higher surfaces.) Physical Therapy Problem List: Detail (1) Assistance with bed mobilty and transfers 2) Impaired ambulation s/p L hip fracture 3) Decreased L LE strength 4 )Decreased ability to complete prolonged physical activity.) Physical Therapy Goals: 1) The patient will be independent with bed mobility ( Goal Met). 2) The patient will be independent/supervision with all transfers. 3) The patient will ambulate with appropriate assistive device household distances WBAT on the L LE with supervision for safety (Goal Met). 4) The patient will tolerate 30 minutes of physical activity with one rest period. 5) Increase L LE strength 1/3 muscle grade to increase stability gait and increase independence with transfers. Physical Therapy Plan: PT 1-2 times a day M-F for gait training, transfer training, bed mobility, LE strengthening exercises and balance exercises.
[2018-12-14] MEDS: TRAZODONE 50 MG TABLET PO SCH (22:38)
[2018-12-14] MEDS: EZETIMIBE 10 MG TABLET PO SCH (22:38)
[2018-12-14] MEDS ORDERED: DIPHENHYDRAMINE HCL 25 MG CAPSULE PO PRN (23:37)
[2018-12-15] MEDS: PANTOPRAZOLE SODIUM 40 MG TABLET PO SCH (06:10)
[2018-12-15 06:49] LABS: BASO % 0.8 % (0-6); EOS % 4.2 % (0-6); GRAN % 48.6 % (47-80); HEMATOCRIT 30.9 % (35.0-47.0); HEMOGLOBIN 9.1 gm/dl (11.6-16.0); LYMPH % 37.2 % (16-45); MEAN CELL VOLUME 93.9 fl (81-97); MEAN CORPUSCULAR HGB CONC 29.4 g/dl (32-36); MEAN PLATELET VOLUME 9.3 fl (7.4-10.4); MONO % 9.2 % (0-9); PLATELET COUNT 419 K/uL (130-400); RED BLOOD COUNT 3.29 M/uL (3.80-5.40); RED CELL DISTRIBUTION WIDTH 15.2 % (11.5-14.5); WHITE BLOOD COUNT W/O DIFF 3.6 K/uL (4.2-12.2)
[2018-12-15 06:55] LABS: MEAN CORPUSCULAR HEMOGLOBIN 27.6 pg (27-33)
[2018-12-15 07:01] LABS: BLOOD UREA NITROGEN 18 mg/dL (8-23); CREATININE 0.7 mg/dL (0.5-0.9); EST GLOMERULAR FILTRATION RATE > 60 mL/min; GLUCOSE,RANDOM 98 mg/dL (74-109)
[2018-12-15] MEDS: ASCORBIC ACID 500 MG TAB PO SCH ×2 (08:09→09:30)
[2018-12-15] MEDS: CHOLECALCIFEROL 1,000 UNIT TABLET PO SCH ×2 (08:09→09:30)
[2018-12-15] MEDS: APIXABAN 2.5MG TABLET PO SCH ×3 (08:09→22:07)
[2018-12-15] MEDS: BENAZEPRIL 20 MG TABLET PO SCH ×2 (08:10→09:30)
[2018-12-15] MEDS: METOPROLOL TART 25 MG TABLET PO SCH ×2 (09:23→22:07)
[2018-12-15] MEDS: FERROUS SULFATE 325 MG TAB PO SCH (09:23)
[2018-12-15] MEDS: CLOPIDOGREL 75MG TABLET PO SCH (09:26)
[2018-12-15] MEDS: PSYLLIUM HUSK/ASPARTAME 3.4 GM POWD.PACK PO PRN (09:29)
[2018-12-15] MEDS: ACETAMINOPHEN 500 MG TABLET PO SCH ×3 (09:31→22:05)
--- NOTE | 2018-12-15 14:38 | Occupational Therapy Tx Note ---
Occupational Therapy Tx Note - Treatment Note Tolerated: Good Total Time Spent With Patient: 35 (ther ex) Occupational Therapy Treatment Note: Detail (S: Pt up in chair, reports she has been working on UE ROM. O: Pt transported to rehab gym via wheelchair. AROM to left UE with shoulder arc x [address] for shoulder flexion and elbow extension. AROM x 10 reps for shoulder flexion, elbow flexion/extension, forearm supination/pronation and wrist flexion/extension. Gentle PROM with light stretch to left elbow flexion and extension x 2 reps each within pain free range. Pt seen by PT after OT session. A: Increased elbow motion actively following gentle stretches.) Occupational Therapy Problem List: Detail (1. Decreased Ind with total body dressing. 2. Decreased Ind with showering/bathing. 3. Decreased knowledge of hip precautions and use of adaptive equipment for modified self cares. 4. Decreased endurance for self cares and functional mobility. 5. Decreased Ind with functional mobility.) Occupational Therapy Goals: 1. Pt will be Ind with modified total body dressing. 2. Pt will be Ind with showering/bathing using modified techniques. 3. Pt will recall total hip precautions and be Ind with self cares using adaptive equipment. 4. Pt will demonstrate improved endurance needed for self cares and functional mobility. 5. Pt will be safe and Ind with mobility needed for self cares and IADLs. Prognosis: Good Occupational Therapy Plan: OT 2-4 times per week to address self cares, functional mobility, endurance and IADLs.
--- NOTE | 2018-12-15 14:55 | Physical Therapy Tx Note ---
Physical Therapy Tx Note - Treatment Note Total Time Spent With Patient: 15 Physical Therapy Tx Note: Detail (The patient was seen following OT treatment for car transfer into her daughter's car. The patient made 2 attempts without a stool and was unable to step into vehicle. With a 4 inch step and running board the patient was able to step into car with minimal to moderate assist of 1 and verbal cues not to break hip precautions. The patient's daughter was present and observed technique. The patient was returned to room and ambulated to chair. The patient was left with daughter and call light in place. PT will assist with car transfer tomorrow.) Physical Therapy Problem List: Detail (1) Assistance with bed mobilty and transfers 2) Impaired ambulation s/p L hip fracture 3) Decreased L LE strength 4 )Decreased ability to complete prolonged physical activity.) Physical Therapy Goals: 1) The patient will be independent with bed mobility ( Goal Met). 2) The patient will be independent/supervision with all transfers. 3) The patient will ambulate with appropriate assistive device household distances WBAT on the L LE with supervision for safety (Goal Met). 4) The patient will tolerate 30 minutes of physical activity with one rest period. 5) Increase L LE strength 1/3 muscle grade to increase stability gait and increase independence with transfers. Physical Therapy Plan: PT 1-2 times a day M-F for gait training, transfer training, bed mobility, LE strengthening exercises and balance exercises.
[2018-12-15] MEDS: TRAZODONE 50 MG TABLET PO SCH (22:06)
[2018-12-15] MEDS: EZETIMIBE 10 MG TABLET PO SCH (22:08)
[2018-12-16] MEDS: PANTOPRAZOLE SODIUM 40 MG TABLET PO SCH (06:57)
--- NOTE | 2018-12-16 10:52 | Physical Therapy Tx Note ---
Physical Therapy Tx Note - Treatment Note Tolerated: Good (Pt. remained at 97% 02 saturation from start to end of tx. Pt. did not complain of pain with car transfer.) Total Time Spent With Patient: 50 Physical Therapy Tx Note: Detail (Pt. was taken from inpatient room to gym via wheelchair. Pt. performed two trials of curtain warp changer pull overs (12 rings) with LUE (clockwise and counterclockwise) without pain. PT provided left elbow flexion and extension, forearm supination and pronation, wrist flexion and extension PROM to end-range and pt. tolerance for 10 repetitions each with pt. seated. Pt. required VC, tactile cues, and mod assist x1 with transfer into car. Pt. exhibited difficulty maintaining hip precautions when advancing LLE into car. Pt. left campus with her daughter who signed a release form, will notify hospital once back before car transfer to have PT or nursing assistance. Nursing was notified of pt.'s status and need for assistance with car transfer once back to hospital.) Physical Therapy Problem List: Detail (1) Assistance with bed mobilty and transfers 2) Impaired ambulation s/p L hip fracture 3) Decreased L LE strength 4 )Decreased ability to complete prolonged physical activity.) Physical Therapy Goals: 1) The patient will be independent with bed mobility ( Goal Met). 2) The patient will be independent/supervision with all transfers. 3) The patient will ambulate with appropriate assistive device household distances WBAT on the L LE with supervision for safety (Goal Met). 4) The patient will tolerate 30 minutes of physical activity with one rest period. 5) Increase L LE strength 1/3 muscle grade to increase stability gait and increase independence with transfers. Prognosis: Good (Pt. independent with transfer out of chair, she exhibits poor control with descent to chair with independent transfer, and she required mod assist x1 with car transfer and poor positioning of left hip and trunk when entering vehicle. Pt is currently not safe to independently perform car transfer. Pt.'s daughter was present during car transfer and verbalized understanding of lumbar extension and to tilt seat back to avoid excessive lumbar and hip flexion to maintain hip precautions.) Physical Therapy Plan: PT 1-2 times a day M-F for gait training, transfer training, bed mobility, LE strengthening exercises and balance exercises.
[2018-12-16] MEDS: BENAZEPRIL 20 MG TABLET PO SCH (13:18)
[2018-12-16] MEDS: CHOLECALCIFEROL 1,000 UNIT TABLET PO SCH (13:18)
[2018-12-16] MEDS: ASCORBIC ACID 500 MG TAB PO SCH (13:18)
[2018-12-16] MEDS: CLOPIDOGREL 75MG TABLET PO SCH (13:18)
[2018-12-16] MEDS: FERROUS SULFATE 325 MG TAB PO SCH (13:19)
[2018-12-16] MEDS: METOPROLOL TART 25 MG TABLET PO SCH ×2 (13:19→21:07)
[2018-12-16] MEDS: ACETAMINOPHEN 500 MG TABLET PO SCH ×3 (13:19→21:08)
[2018-12-16] MEDS: APIXABAN 2.5MG TABLET PO SCH ×2 (13:20→21:08)
[2018-12-16] MEDS: TRAZODONE 50 MG TABLET PO SCH (21:05)
[2018-12-16] MEDS: EZETIMIBE 10 MG TABLET PO SCH (21:06)
[2018-12-17] MEDS: PANTOPRAZOLE SODIUM 40 MG TABLET PO SCH (06:19)
--- NOTE | 2018-12-17 08:18 | Occupational Therapy Tx Note ---
Occupational Therapy Tx Note - Treatment Note Tolerated: Good Total Time Spent With Patient: 45 (ADL, ther ex) Occupational Therapy Treatment Note: Detail (S: Pt up in chair, said she slept well. O: Pt doffed sweater with verbal cue for technique. Pt doffed slipper socks with press bucker Indly and donned socks with sock aid and verbal cues for technique. Donned tennis shoes with long shoe horn, verbal cues and assist to tie left shoe. Pt reports her daughters will be able to assist her if needed and she has slip on shoes at home. AROM x 10 reps for left elbow flexion and extension, PROM with gentle prolonged stretch x 3 reps to left elbow flexion and extension. A: Pt requires min assist/verbal cueing for modified LE dressing, elbow motion slowly improving.) Occupational Therapy Problem List: Detail (1. Decreased Ind with total body dressing. 2. Decreased Ind with showering/bathing. 3. Decreased knowledge of hip precautions and use of adaptive equipment for modified self cares. 4. Decreased endurance for self cares and functional mobility. 5. Decreased Ind with functional mobility.) Occupational Therapy Goals: 1. Pt will be Ind with modified total body dressing. 2. Pt will be Ind with showering/bathing using modified techniques. 3. Pt will recall total hip precautions and be Ind with self cares using adaptive equipment. 4. Pt will demonstrate improved endurance needed for self cares and functional mobility. 5. Pt will be safe and Ind with mobility needed for self cares and IADLs. Prognosis: Good Occupational Therapy Plan: OT 2-4 times per week to address self cares, functional mobility, endurance and IADLs.
[2018-12-17] MEDS: FERROUS SULFATE 325 MG TAB PO SCH (10:03)
[2018-12-17] MEDS: BENAZEPRIL 20 MG TABLET PO SCH (10:03)
[2018-12-17] MEDS: ACETAMINOPHEN 500 MG TABLET PO SCH ×3 (10:03→21:36)
[2018-12-17] MEDS: APIXABAN 2.5MG TABLET PO SCH ×2 (10:03→21:39)
[2018-12-17] MEDS: CLOPIDOGREL 75MG TABLET PO SCH (10:04)
[2018-12-17] MEDS: METOPROLOL TART 25 MG TABLET PO SCH ×2 (10:04→21:38)
[2018-12-17] MEDS: CHOLECALCIFEROL 1,000 UNIT TABLET PO SCH (10:04)
[2018-12-17] MEDS: ASCORBIC ACID 500 MG TAB PO SCH (10:04)
--- NOTE | 2018-12-17 13:53 | Physical Therapy Tx Note ---
Physical Therapy Tx Note - Treatment Note Tolerated: Good Total Time Spent With Patient: 35 Physical Therapy Tx Note: Detail (The patient was in bathroom when PT arrived. The patient was independent with supine to and from sit without use of railing. The patient ambulated to chair with std. cane with supervision for safety. The patient was taken to PT department and was independent with sit to stand from 20 inch surface. The patient ambulated several feet around the PT department with standard cane with supervision for safety. Occasional loss of balance was noted especially when turning and when initiating ambulation. Direct supervision with ambulation is recommended at home at all times due to occasional LOB. LE strength was also retested and has improved 1/3 muscle grade in all muscle groups.) Physical Therapy Problem List: Detail (1) Assistance with bed mobilty and transfers 2) Impaired ambulation s/p L hip fracture 3) Decreased L LE strength 4 )Decreased ability to complete prolonged physical activity.) Physical Therapy Goals: 1) The patient will be independent with bed mobility ( Goal Met). 2) The patient will be independent/supervision with all transfers. 3) The patient will ambulate with appropriate assistive device household distances WBAT on the L LE with supervision for safety (Goal Met). 4) The patient will tolerate 30 minutes of physical activity with one rest period. 5) Increase L LE strength 1/3 muscle grade to increase stability gait and increase independence with transfers. Physical Therapy Plan: PT 1-2 times a day M-F for gait training, transfer training, bed mobility, LE strengthening exercises and balance exercises.
[2018-12-17] MEDS: EZETIMIBE 10 MG TABLET PO SCH (21:38)
[2018-12-17] MEDS: TRAZODONE 50 MG TABLET PO SCH (21:39)
[2018-12-18] MEDS: PANTOPRAZOLE SODIUM 40 MG TABLET PO SCH (07:24)
[2018-12-18] MEDS: METOPROLOL TART 25 MG TABLET PO SCH ×2 (11:44→21:24)
[2018-12-18] MEDS: BENAZEPRIL 20 MG TABLET PO SCH (11:44)
[2018-12-18] MEDS: FERROUS SULFATE 325 MG TAB PO SCH (11:44)
[2018-12-18] MEDS: CLOPIDOGREL 75MG TABLET PO SCH (11:44)
[2018-12-18] MEDS: ACETAMINOPHEN 500 MG TABLET PO SCH ×3 (11:44→21:24)
[2018-12-18] MEDS: APIXABAN 2.5MG TABLET PO SCH ×2 (11:44→21:25)
[2018-12-18] MEDS: CHOLECALCIFEROL 1,000 UNIT TABLET PO SCH (11:45)
[2018-12-18] MEDS: ASCORBIC ACID 500 MG TAB PO SCH (11:45)
[2018-12-18] MEDS ORDERED: NYSTATIN 15 GM TUBE TOP PRN (17:16)
[2018-12-18] MEDS ORDERED: NYSTATIN 15 GM TUBE TOP ONE (17:29)
[2018-12-18] MEDS ORDERED: FLUCONAZOLE 100 MG TABLET PO ONE (17:39)
[2018-12-18] MEDS: TRAZODONE 50 MG TABLET PO SCH (21:24)
[2018-12-18] MEDS: EZETIMIBE 10 MG TABLET PO SCH (21:25)
[2018-12-19] MEDS: PANTOPRAZOLE SODIUM 40 MG TABLET PO SCH (07:01)
[2018-12-19] MEDS: BENAZEPRIL 20 MG TABLET PO SCH (09:38)
[2018-12-19] MEDS: ASCORBIC ACID 500 MG TAB PO SCH (09:38)
[2018-12-19] MEDS: CHOLECALCIFEROL 1,000 UNIT TABLET PO SCH (09:38)
[2018-12-19] MEDS: APIXABAN 2.5MG TABLET PO SCH ×2 (09:38→22:29)
[2018-12-19] MEDS: CLOPIDOGREL 75MG TABLET PO SCH (09:39)
[2018-12-19] MEDS: FERROUS SULFATE 325 MG TAB PO SCH (09:39)
[2018-12-19] MEDS: METOPROLOL TART 25 MG TABLET PO SCH ×2 (09:39→22:28)
[2018-12-19] MEDS: ACETAMINOPHEN 500 MG TABLET PO SCH ×3 (09:39→22:27)
[2018-12-19] MEDS: TRAZODONE 50 MG TABLET PO SCH (22:28)
[2018-12-19] MEDS: EZETIMIBE 10 MG TABLET PO SCH (22:28)
[2018-12-20] MEDS: PANTOPRAZOLE SODIUM 40 MG TABLET PO SCH (06:41)
--- NOTE | 2018-12-20 08:10 | Rehab Discharge Summary ---
Patient Information - Patient Information Diagnosis: fall from standing Ordered Treatment: OT Evaluate and Treat Surgery: Yes (left hip hemiarthroplasty 11/19/18, left humerus ORIF 11/21/18) History: Detail (Pt fell at home sustaining a left hip and left humerus fracture. 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 PMH - Respiratory Hx Respiratory Disorders No PMH - Cardiovascular Hx Cardiovascular Disorders Yes Hx Cardiac Catheterization Yes: Aortic valve repair Hx Hypertension Yes Hx Pacemaker/Defibrillator Yes Hx Coronary Artery Disease Yes Comment: murmur PMH - Neuro Hx Neurological Disorders No Hx Seizures No Comment: appears confused upon adm here PMH - GI Hx Gastrointestinal Disorders No PMH - Hx Genitourinary Disorders Yes Hx Urinary Tract Infection Yes PMH - Endocrine Hx Endocrine Disorders No Hx Diabetes No Hx Thyroid Disease No PMH - Musculoskeletal Hx Musculoskeletal Disorders Yes Hx Arthritis Yes Comment: Left TKA PMH - Psych Hx Psychiatric Problems Yes Hx Anxiety Yes PMH - Hematology/Oncology Hx Hematology/Oncology Yes Disorders Hx Anemia Yes Premorbid Status: Detail (Pt lives alone in a 1 story house with basement. She stays on the main level. She has 3 steps, a landing and another small step with 1 railing at the entrance. Pt has a walk in shower with a seat and grab bars and an elevated toilet with grab bar. Pt is responsible for light meal prep, light home mgmt and laundry. She has 3 daughters, 2 live close and assist as needed. She does not drive.) Social History: Detail (Supportive daughters.) Precautions: [place], Fall, Other (WBAT left LE, NWB left UE, PROM and AROM only to left elbow - no weights, posterior hip precautions.) Subjective Information - Subjective Information Per Patient Objective Data - Mental Status Patient Orientation: Oriented x3 - Visual Perception Appears within normal limits for therapeutic activities (Pt wears glasses) - ROM Not within normal limits (Right UE AROM WNL, Left UE AROM: shoulder flexion 135 degrees, elbow flexion 112 degrees, elbow extension -33 degrees, wrist flexion WNL, wrist extension 118 degrees.) - Strength/Tone Not within normal limits (Right UE MMT 4+/5, Left shoulder 4-/5 within AROM limitations, left elbow and wrist not tested due to surgical restrictions.) - Coordination Appears within normal limits for therapeutic activities (Pt able to use left hand as an assist for self cares.) - Transfers Needs Assist (Ind with sit to stand from elevated surfaces, pt requires min assist at times from lower surfaces if she is fatigued.) - Balance Balance Sitting: Good Balance Standing: Fair - Sensation Intact - Gait Detail (Pt ambulating in room with cane and SBA.) - ADL's/IADL's Detail (Pt able to complete showering in sitting with grab bars and hand held shower as well as use of sales contracts analyst due to hip precautions, recommend supervision initially after discharge as pt requires min assist if fatigued. Pt able to demonstrate Ind with modified LE dressing with use of sales contracts analyst, sock aid and long shoe horn to maintain total hip precautions. She has a sales contracts analyst and long shoe horn but feels she will have assistance with socks and tying shoes. Pt is Ind with upper body dressing although she has not attempted donning bra. She is Ind with grooming/hygiene tasks. IADL tasks were not formally assessed.) Therapy Assessment - Therapy Assessment Detail (Pt demonstrates improved endurance and Ind with ADLs, she still requires minimal assist at times due to fatigue level with self cares and mobility. Her left UE function is improving and she has a written HEP.) Problem List - Problem List Physical Therapy Problem List: Detail (1) Assistance with bed mobilty and transfers 2) Impaired ambulation s/p L hip fracture 3) Decreased L LE strength 4 )Decreased ability to complete prolonged physical activity.) Occupational Therapy Problem List: Detail (1. Decreased Ind with total body dressing. 2. Decreased Ind with showering/bathing. 3. Decreased knowledge of hip precautions and use of adaptive equipment for modified self cares. 4. Decreased endurance for self cares and functional mobility. 5. Decreased Ind with functional mobility.) Goals - Goals Physical Therapy Goals: 1) The patient will be independent with bed mobility ( Goal Met). 2) The patient will be independent/supervision with all transfers. 3) The patient will ambulate with appropriate assistive device household distances WBAT on the L LE with supervision for safety (Goal Met). 4) The patient will tolerate 30 minutes of physical activity with one rest period. 5) Increase L LE strength 1/3 muscle grade to increase stability gait and increase independence with transfers. Occupational Therapy Goals: Goals met: 1. Pt will be Ind with modified total body dressing. 2. Pt will be Ind with showering/bathing using modified techniques. 3. Pt will recall total hip precautions and be Ind with self cares using adaptive equipment. 4. Pt will demonstrate improved endurance needed for self cares and functional mobility. 5. Pt will be safe and Ind with mobility needed for self cares and IADLs. Prognosis - Prognosis Good Plan - Plan Physical Therapy Plan: PT 1-2 times a day M-F for gait training, transfer training, bed mobility, LE strengthening exercises and balance exercises. Occupational Therapy Plan: Pt is discharging home with home OT/PT. Her daughter is staying with her at this time.
--- NOTE | 2018-12-20 08:13 | Discharge Summary ---
Providers Discharge Summary Date: 12/20/18 Date of admission: 11/27/18 12:35 Expected Date of Discharge: 12/20/18 Attending physician: Bishop Castle Primary care physician: Bishop Castle Physical Exam - Vital Signs Vital Signs: Vital Signs - Last 24 Hrs Temp Pulse Resp BP Pulse Ox 12/19/18 20:00 97.7 F 65 18 138/60 97 - General General Appearance: Alert, Mild distress (d/t LUE discomfort) - Head Head exam: Normal inspection - Eye Eye exam: Normal appearance, PERRL Pupils: Normal accommodation - ENT ENT exam: Normal exam, Mucous membranes moist, Normal external ear exam, Normal orophraynx, TM's normal bilaterally Ear exam: Normal external inspection. negative: External canal tenderness Nasal Exam: Normal inspection. negative: Discharge, Sinus tenderness Mouth exam: Normal external inspection, Tongue normal Teeth exam: Normal inspection. negative: Dental caries Throat exam: Normal inspection. negative: Tonsillar erythema, Tonsillar exudate - Neck Neck exam: Normal inspection, Full ROM. negative: Tenderness - Respiratory Respiratory exam: negative: Accessory muscle use, Respiratory distress - Cardiovascular Cardiovascular Exam: Regular rate, Normal rhythm, Normal heart sounds - GI/Abdominal GI/Abdominal exam: Soft, Normal bowel sounds. negative: Tenderness - Rectal Rectal exam: Deferred - exam: Deferred - Extremities Extremities exam: Normal inspection, Normal capillary refill, Tenderness (left elbow and ROM improving) - Back Back exam: Reports: Normal inspection - Neurological Neurological exam: Abnormal gait (because of surgery left hip) - Psychiatric Psychiatric exam: Depressed - Skin Skin exam: Dry, Intact, Normal color, Warm Hospitalization - Hospitalization Admission Diagnosis: mult. rehab services due to fall from standing - Problem List (1) Hip fracture Diagnosis Priority: Primary Current Visit: No Status: Acute Discharge Diagnosis: Encounter type: subsequent encounter Fracture type: closed Laterality: left Qualified Code(s): S72.002A - Fracture of unspecified part of neck of left femur, initial encounter for closed fracture Base Code: S72.009A - FRACTURE OF UNSP PART OF NECK OF UNSP FEMUR, INIT (2) Supracondylar fracture of humerus Diagnosis Priority: Primary Current Visit: Yes Status: Acute Discharge Diagnosis: Encounter type: subsequent encounter Fracture type: closed Laterality: left Fracture healing: with routine healing Qualified Code(s): S42.412D - Displaced simple supracondylar fracture without intercondylar fracture of left humerus, subsequent encounter for fracture with routine healing (3) Hypertension Diagnosis Priority: Secondary Current Visit: Yes Status: Acute Discharge Diagnosis: Hypertension type: essential hypertension Qualified Code(s): I10 - Essential (primary) hypertension Base Code: I10 - ESSENTIAL (PRIMARY) HYPERTENSION (4) H/O aortic valve repair Diagnosis Priority: Secondary Current Visit: Yes Status: Chronic Base Code: Z98.890 - OTHER SPECIFIED POSTPROCEDURAL STATES; Z86.79 - PERSONAL HISTORY OF OTHER DISEASES OF THE CIRCULATORY SYSTEM (5) CAD (coronary artery disease) Diagnosis Priority: Secondary Current Visit: Yes Status: Chronic Discharge Diagnosis: Coronary Disease-Associated Artery/Lesion type: [place] artery Associated angina: without angina Base Code: I25.10 - ATHSCL HEART DISEASE OF PLATINUM CORONARY ARTERY W/O ANG PCTRS (6) History of pacemaker Diagnosis Priority: Secondary Current Visit: Yes Status: Chronic Base Code: Z95.0 - PRESENCE OF CARDIAC PACEMAKER (7) Anemia Diagnosis Priority: Primary Current Visit: Yes Status: Acute Discharge Diagnosis: Anemia type: iron deficiency Iron deficiency anemia type: inadequate dietary iron intake Qualified Code(s): D50.8 - Other iron deficiency anemias Base Code: D64.9 - ANEMIA, UNSPECIFIED Narrative Support Text: continue iron and vit c and will need to recheck hg and sesrum iron level in 1- 2 weeks hg 9.1 (8) BPV (benign positional vertigo) Diagnosis Priority: Secondary Current Visit: Yes Status: Chronic Discharge Diagnosis: Laterality: unspecified laterality Qualified Code(s): H81.10 - Benign paroxysmal vertigo, unspecified ear Base Code: H81.10 - BENIGN PAROXYSMAL VERTIGO, UNSPECIFIED EAR - Disposition goal is to return home - Hospitalization Course Disposition: Home, Self-Care Reason For Discharge/Transfer: Medical Stability Abnormal Labs: Abnormal Lab Results 11/24/18 11/24/18 11/30/18 Range/Units 09:15 09:15 06:10 WBC (4.2-12.2) K/uL RBC 3.61 L 3.10 L (3.80-5.40) M/uL Hgb 10.8 L 8.9 L (11.6-16.0) gm/dl Hct 33.6 L 29.6 L (35.0-47.0) % MCHC 30.1 L (32-36) g/dl RDW 14.7 H (11.5-14.5) % Plt Count (130-400) K/uL Neutrophils % (47-80) % Lymphocytes % (16-45) % Monocytes % (0-9) % Lymphocytes (16-45) % Sodium (136-145) mmol/L Random Glucose 179 H (74-109) mg/dL Calcium (8.8-10.2) mg/dL Iron 31 L (37-145) ug/dL Urine Protein (NEGATIVE) Urine Ketones (NEGATIVE) Ur Leukocyte Esterase (NEGATIVE) 11/30/18 12/01/18 12/03/18 Range/Units 06:10 Unknown 06:11 WBC (4.2-12.2) K/uL RBC 3.16 L (3.80-5.40) M/uL Hgb 8.9 L (11.6-16.0) gm/dl Hct 29.7 L (35.0-47.0) % MCHC 30.0 L (32-36) g/dl RDW 14.9 H (11.5-14.5) % Plt Count 432 H (130-400) K/uL Neutrophils % (47-80) % Lymphocytes % 15.3 L (16-45) % Monocytes % 9.3 H (0-9) % Lymphocytes (16-45) % Sodium (136-145) mmol/L Random Glucose (74-109) mg/dL Calcium 8.4 L (8.8-10.2) mg/dL Iron (37-145) ug/dL Urine Protein 30 mg/dl H (NEGATIVE) Urine Ketones (NEGATIVE) Ur Leukocyte Esterase Large H (NEGATIVE) 12/03/18 12/07/18 12/08/18 Range/Units 06:11 16:30 09:46 WBC (4.2-12.2) K/uL RBC 3.24 L 3.33 L (3.80-5.40) M/uL Hgb 9.3 L 9.6 L (11.6-16.0) gm/dl Hct 29.9 L 31.0 L (35.0-47.0) % MCHC 31.1 L 31.0 L (32-36) g/dl RDW 15.1 H 15.1 H (11.5-14.5) % Plt Count (130-400) K/uL Neutrophils % 85.0 H (47-80) % Lymphocytes % 14.8 L (16-45) % Monocytes % (0-9) % Lymphocytes 11.0 L (16-45) % Sodium (136-145) mmol/L Random Glucose (74-109) mg/dL Calcium 8.6 L (8.8-10.2) mg/dL Iron (37-145) ug/dL Urine Protein (NEGATIVE) Urine Ketones (NEGATIVE) Ur Leukocyte Esterase (NEGATIVE) 12/08/18 12/08/18 12/15/18 Range/Units 09:46 Unknown 06:15 WBC 3.6 L (4.2-12.2) K/uL RBC 3.29 L (3.80-5.40) M/uL Hgb 9.1 L (11.6-16.0) gm/dl Hct 30.9 L (35.0-47.0) % MCHC 29.4 L (32-36) g/dl RDW 15.2 H (11.5-14.5) % Plt Count 419 H (130-400) K/uL Neutrophils % (47-80) % Lymphocytes % (16-45) % Monocytes % 9.2 H (0-9) % Lymphocytes (16-45) % Sodium 133 L (136-145) mmol/L Random Glucose 182 H (74-109) mg/dL Calcium (8.8-10.2) mg/dL Iron (37-145) ug/dL Urine Protein (NEGATIVE) Urine Ketones Trace H (NEGATIVE) Ur Leukocyte Esterase Small H (NEGATIVE) Condition at Discharge: (1) Good Discharge Diagnosis: deconditioning much improved. left hip fracture. left supracondylar fracture of elbow. iron deficient anemia hg 9.1. hypertension. history of pacemaker. history of cad Discharge Medications - Discharge Medications Prescriptions: Ezetimibe [Zetia] 10 mg PO QHS #30 tablet Trazodone HCl [Desyrel] 25 mg PO QHS PRN #30 tab PRN Reason: Insomnia Ascorbic Acid [Vitamin C] 1,000 mg PO DAILY #100 tab Benazepril HCl [Lotensin] 40 mg PO DAILY #30 tablet Clopidogrel Bisulfate [Plavix] 75 mg PO DAILY #30 tab Ferrous Sulfate [Iron] 325 mg PO DAILY #100 tablet Metoprolol Tartrate [Lopressor] 25 mg PO BID #60 tab Home Medications: Ambulatory Orders Benazepril HCl [Lotensin] 40 mg PO DAILY 03/01/17 [Last Taken 11/17/18] Clopidogrel Bisulfate [Clopidogrel] 75 mg PO DAILY 03/01/17 [Last Taken 11/17/18 ] Metoprolol Tartrate [Lopressor] 25 mg PO BID 03/01/17 [Last Taken 11/17/18] Ezetimibe [Zetia] 10 mg PO QHS 10/14/17 [Last Taken 11/17/18] Aspirin [Aspir-Low] 81 mg PO DAILY 11/18/18 [Last Taken 11/17/18] Cholecalciferol (Vitamin D3) [Vitamin D3] 2,000 unit PO DAILY 11/18/18 [Last Taken 11/17/18] Trazodone HCl 25 mg PO DAILY 11/18/18 [Last Taken 11/17/18] Acetaminophen [Tylenol 500Mg Tab] 1,000 mg PO TID tablet 12/20/18 [Last Taken Unknown] Ascorbic Acid [Vitamin C] 1,000 mg PO DAILY #100 tab 12/20/18 [Last Taken Unknown] Benazepril HCl [Lotensin] 40 mg PO DAILY #30 tablet 12/20/18 [Last Taken Unknown ] Clopidogrel Bisulfate [Plavix] 75 mg PO DAILY #30 tab 12/20/18 [Last Taken Unknown] Ezetimibe [Zetia] 10 mg PO QHS #30 tablet 12/20/18 [Last Taken Unknown] Ferrous Sulfate [Iron] 325 mg PO DAILY #100 tablet 12/20/18 [Last Taken Unknown] Metoprolol Tartrate [Lopressor] 25 mg PO BID #60 tab 12/20/18 [Last Taken Unknown] Psyllium Husk/Aspartame [Metamucil Pwd] 3.4 gm PO DAILY PRN powd.pack 12/20/18 [Last Taken Unknown] Trazodone HCl [Desyrel] 25 mg PO QHS PRN #30 tab 12/20/18 [Last Taken Unknown] Discharge Plan - Discharge Instructions Activity at Discharge: Increase Activity as Tolerated Diet at Discharge: Low Salt Diet Additional Instructions: Appointment with Dr. Castle on December 27 at 11:10AM. [facility] will see you at home. They can be reached 20/04 at . Quality Measures - Quality Measures Quality Measures: Advance Directives, Coronary Artery Disease: Antiplatelet Therapy, Documentation of Current Medications in Medical Record, Elder Maltreatment Screen and Follow-Up Plan, Screening for High Blood Pressure and F/ U Documented - Current Medications Quality Measure: Measure #130: Documentation of Current Medications Documentation of Current Medications: <Current Medications Documented/Reviewed> [R0829] - Blood Pressure Screening Quality Measure: Screening for High Blood Pressure and Follow-Up Documented Does Patient Have Any of the Following: Active Dx of HTN Blood Pressure Classification: Pre-Hypertensive BP Reading Systolic Measurement: 168 Diastolic Measurement: 82 Screening for High Blood Pressure: Patient Exclusion, Hx of HTN [G9744] - Coronary Artery Disease Quality Measure: Measure #6: Coronary Artery Disease (CAD) Antiplatelet Therapy: <ASA or clopidogrel prescribed> [3640F] - Advance Directives Quality Measure: Measure #47: Care Plan Advance Directives Established: No Advance Directives Information Provided To Patient: No Advance Directives on File: No Living Will: No Power of Cigarette Carton Sealer: No Advance Care Planning: <Care Plan/Decision Maker Documented; Discussed & Documented> [2983F] - Elder Abuse Suspicion Index Screening: Elder Abuse Suspicion Index Screening Rely on people for bathing, dressing, shopping, banking, etc: Yes Prevented from getting food, clothes, medication, etc: No Made to feel shamed or threatened by someone: No Forced to sign papers or use money against will: No Feel afraid, touched in ways not wanted or hurt physically: No Poor eye contact, withdrawn, malnourished, cuts or bruises: No Screening Result: Negative result EASI Reference Information: Spike VAZQUEZ, Yolie C, Hui D, Ro Funez.Development and validation of a tool to assist physicians identification of elder abuse: The Elder Abuse Suspicion Index (EASI ). Journal of Elder Abuse and Neglect, 2008; 20 (3): 276-300. - Elder Maltreatment Screen Quality Measures: Elder Maltreatment Screen and Follow-Up Plan Elder Maltreatment Screen: <Negative, No Follow-Up Plan Required> [G8734]
[2018-12-20] MEDS: CHOLECALCIFEROL 1,000 UNIT TABLET PO SCH (09:43)
[2018-12-20] MEDS: ASCORBIC ACID 500 MG TAB PO SCH (09:43)
[2018-12-20] MEDS: CLOPIDOGREL 75MG TABLET PO SCH (09:43)
[2018-12-20] MEDS: BENAZEPRIL 20 MG TABLET PO SCH (09:44)
[2018-12-20] MEDS: ACETAMINOPHEN 500 MG TABLET PO SCH (09:44)
[2018-12-20] MEDS: PSYLLIUM HUSK/ASPARTAME 3.4 GM POWD.PACK PO PRN (09:47)
[2018-12-20] MEDS: METOPROLOL TART 25 MG TABLET PO SCH (09:47)
[2018-12-20] MEDS: FERROUS SULFATE 325 MG TAB PO SCH (09:47)
--- NOTE | 2018-12-20 10:22 | Physical Therapy Tx Note ---
Physical Therapy Tx Note - Treatment Note Tolerated: Good Total Time Spent With Patient: 15 Physical Therapy Tx Note: Detail (The patient was anxious re: ambulating with cane at home and requested to try 4 wheeled walker. The patient ambulated with 4 wheeled walker 100 feet plus with one rest period on both tile and carpeted surface with supervision for safety and occasional verbal cues in how to lock brakes. The patient ambulated with R arm propelling walker only and with L arm resting lightly on walker. L UE NWB exercises were emphasized. The patient was able to lock R brake but not Left. Patient's daughter was present and was aware of supervision requirements when patient is ambulating. Patient's daughter stated she would also assist with locking brakes. Home PT to further assess ambulation with assistive device in home environment.) Physical Therapy Problem List: Detail (1) Assistance with bed mobilty and transfers 2) Impaired ambulation s/p L hip fracture 3) Decreased L LE strength 4 )Decreased ability to complete prolonged physical activity.) Physical Therapy Goals: 1) The patient will be independent with bed mobility ( Goal Met). 2) The patient will be independent/supervision with all transfers. 3) The patient will ambulate with appropriate assistive device household distances WBAT on the L LE with supervision for safety (Goal Met). 4) The patient will tolerate 30 minutes of physical activity with one rest period. 5) Increase L LE strength 1/3 muscle grade to increase stability gait and increase independence with transfers. Physical Therapy Plan: PT 1-2 times a day M-F for gait training, transfer training, bed mobility, LE strengthening exercises and balance exercises.
--- NOTE | 2018-12-20 16:48 | Rehab Discharge Summary ---
Patient Information - Patient Information Diagnosis: fall from standing Ordered Treatment: PT Evaluate and Treat Surgery: Yes (left hip hemiarthroplasty 11/19/18, left humerus ORIF 11/21/18) History: Detail (Pt fell at home sustaining a left hip and left humerus fracture. 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 PMH - Respiratory Hx Respiratory Disorders No PMH - Cardiovascular Hx Cardiovascular Disorders Yes Hx Cardiac Catheterization Yes: Aortic valve repair Hx Hypertension Yes Hx Pacemaker/Defibrillator Yes Hx Coronary Artery Disease Yes Comment: murmur PMH - Neuro Hx Neurological Disorders No Hx Seizures No Comment: appears confused upon adm here PMH - GI Hx Gastrointestinal Disorders No PMH - Hx Genitourinary Disorders Yes Hx Urinary Tract Infection Yes PMH - Endocrine Hx Endocrine Disorders No Hx Diabetes No Hx Thyroid Disease No PMH - Musculoskeletal Hx Musculoskeletal Disorders Yes Hx Arthritis Yes Comment: Left TKA PMH - Psych Hx Psychiatric Problems Yes Hx Anxiety Yes PMH - Hematology/Oncology Hx Hematology/Oncology Yes Disorders Hx Anemia Yes Premorbid Status: Detail (Pt lives alone in a 1 story house with basement. She stays on the main level. She has 3 steps, a landing and another small step with 1 railing at the entrance. Pt has a walk in shower with a seat and grab bars and an elevated toilet with grab bar. Pt is responsible for light meal prep, light home mgmt and laundry. She has 3 daughters, 2 live close and assist as needed. She does not drive.) Social History: Detail (Supportive daughters.) Precautions: [place], Fall, Other (WBAT left LE, NWB left UE, PROM and AROM only to left elbow - no weights, posterior hip precautions.) Subjective Information - Subjective Information Per Patient (The patient had no complaints of L hip pain. The patient was less anxious re: ambulating at home after trial with 4 wheeled walker this am.) Objective Data - Mental Status Patient Orientation: Oriented x3 - Visual Perception Appears within normal limits for therapeutic activities, Deficit (The patient wears glasses.) - ROM Within normal limits (except for minimal deficit in bilateral dorsiflexion.) - Strength/Tone Not within normal limits (The patient's R LE strength is generally 4 to 4+/5, L LE strength is hip flexors 4-/5, hip abductors/adductors 4/5, knee musculature 4 - to 4/5 and ankle musculature 4/5.) - Bed Mobility Independent (The patient was independent with supine to and from sit transfer without use of handrails.) - Transfers Independent (The patient was independent with sit to and from stand transfer from high surface(20 inches).), Needs Assist (The patient required moderate/ minimal assist with sit to and from stand transfer from lower surfaces. The patient required moderate assist with car transfer into daughter's SUV and minimal/CG assist into other daughter's [employer].) - Balance Balance Sitting: Good Balance Standing: Fair - Gait Detail (The patient ambulates with standard cane with SBA/CG for safety due to occasional LOB household distances. Patient also ambulates with 4 wheeled walker on carpet and tile household distances with supervision for safety and occasional verbal cues to maintain L UE non weightbearing status ( patient ambulates one handed or with L hand lightly touching walker-no weight bearing). The patient ambulated on 3 steps with use of railing and cane using proper technique with supervision/CG for safety.) Therapy Assessment - Therapy Assessment Detail (The patient was independent with bed mobility, transfers from higher surfaces. The patient ambulated with 4 wheeled walker with less supervision and was able to maintain L UE non weightbearing status. 24 hour supervision during all mobility is recommended initially especially due to LOB at times with ambulation. The patient's daughter is aware of supervision requirements and has attended PT sessions and has participated in car transfers, observed transfers and ambulation with both std. cane and 4 wheeled walker. The patient's daughter is aware of equipment needs including raised toilet seat with handles, bed railing and lift chair, ie: high surfaces for sit to and from stand. The patient is to receive Home PT for assessment of the patient's mobility in Home environment.) Patient Education - Patient Education Teaching Topic: Exercise/Activity (The patient is independent with HEP for LE strengthening exercises : LAQ, hamstring curls, hip marching, hip abduction, hip adductor squeezes, heel raises, toe raised.) Response: Return Demonstration Teaching Method: Discussion Teaching Recipient: Patient Barriers To Learning: Age Related Problem List - Problem List Physical Therapy Problem List: Detail (1) Assistance with bed mobilty and transfers 2) Impaired ambulation s/p L hip fracture 3) Decreased L LE strength 4 )Decreased ability to complete prolonged physical activity.) Occupational Therapy Problem List: Detail (1. Decreased Ind with total body dressing. 2. Decreased Ind with showering/bathing. 3. Decreased knowledge of hip precautions and use of adaptive equipment for modified self cares. 4. Decreased endurance for self cares and functional mobility. 5. Decreased Ind with functional mobility.) Goals - Goals Physical Therapy Goals: 1) The patient will be independent with bed mobility ( Goal Met). 2) The patient will be independent/supervision with all transfers ( Goal Met). 3) The patient will ambulate with appropriate assistive device household distances WBAT on the L LE with supervision for safety (Goal Met). 4 ) The patient will tolerate 30 minutes of physical activity with one rest period. (Goal Met). 5) Increase L LE strength 1/3 muscle grade to increase stability gait and increase independence with transfers. (Goal Met) Occupational Therapy Goals: Goals met: 1. Pt will be Ind with modified total body dressing. 2. Pt will be Ind with showering/bathing using modified techniques. 3. Pt will recall total hip precautions and be Ind with self cares using adaptive equipment. 4. Pt will demonstrate improved endurance needed for self cares and functional mobility. 5. Pt will be safe and Ind with mobility needed for self cares and IADLs. Plan - Plan Physical Therapy Plan: The patient is discharged to home. The patient is to receive Home PT/OT. Daughter is providing supervision. Occupational Therapy Plan: Pt is discharging home with home OT/PT. Her daughter is staying with her at this time.
== END 2018-12-20 10:30 | disposition home or self-care (01) | DRG 536 ==
LOC: MEDSURG 16:05 → UNDOADMIN 16:05 → MEDSURG 11-27 12:35
PROVIDERS: ADMIT Emergency Medicine; ATTEND Emergency Medicine
DX: S72.002A Fracture of unspecified part of neck of left femur, initial encounter for closed fracture (principal); S42.412A Displaced simple supracondylar fracture without intercondylar fracture of left humerus, initial encounter for closed fracture; I10 Essential (primary) hypertension; I25.10 Atherosclerotic heart disease of native coronary artery without angina pectoris; D64.9 Anemia, unspecified; H81.10 Benign paroxysmal vertigo, unspecified ear; Z95.0 Presence of cardiac pacemaker; Z98.890 Other specified postprocedural states
CPT/HCPCS: 80048; 81001; 82310; 83540; 85025; 85027; 87040; 97110; 97140; 97530; 97535; 99309

== ENCOUNTER 2019-11-15 15:01 | Emergency (ER) | payer MEDICARE, BC ==
[2019-11-15] MEDS ORDERED: TOPICAL LIDOCAINE W/ EPI 5 ML TOP ONE (15:39)
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
[2019-11-15] MEDS ORDERED: CEPHALEXIN 500 MG CAPSULE PO STA (18:22)
== END 2019-11-15 18:53 | disposition home or self-care (01) ==
LOC: ER 15:01
DX: S82.51XA Displaced fracture of medial malleolus of right tibia, initial encounter for closed fracture (principal); S51.011A Laceration without foreign body of right elbow, initial encounter; S01.81XA Laceration without foreign body of other part of head, initial encounter; S09.90XA Unspecified injury of head, initial encounter; M79.672 Pain in left foot; V03.10XA Pedestrian on foot injured in collision with car, pick-up truck or van in traffic accident, initial encounter; Y93.01 Activity, walking, marching and hiking; Y92.414 Local residential or business street as the place of occurrence of the external cause; I10 Essential (primary) hypertension
CPT/HCPCS: 12031; 12052; 70450; 70486; 99285